=== PATIENT | male | born 1945 | race Caucasian/White ===

== ENCOUNTER 2017-07-28 14:30 | Outpatient (RCR) | payer MEDICARE, OTHER, SELFPAY ==
--- NOTE | 2017-07-01 18:00 | HP.OTEVAL ---
Patient's Visit Information EDGAR CERON is a 72 year old M, referred to Occupational Therapy by Out of Town Doctor,CESAR ZAMARRIPA, with a diagnosis of L wrist pain. Date of Evaluation: 07/01/17 Occupational Therapist: Darline Fung - Subjective Subjective: Pt., Guevara, arrived and noted that he has had on going issue with L wrist since high school. He noted he broke L dominant wrist in high school, had surgery around 49 years old, and recently has been told that to help decreased pain suregons can try burning nerve endings and if that doesn't work he noted they will try a fusion. He noted that he was referred to OT due to need to work on strengthening and ROM. He noted that he is L hand dominant. - Pain Left Wrist 0 Pain Intensity Range: 0, 9, 10 - Objective Concerns: Pt. poor informant if there is plate in wrist. Does not seem to show signs of plate, and nothing noted in x-ray but please further clarify as this is contraindication of some modalities that could potentially help decrease pain. Thank you! - ROM Wrist: Flexion R 0-70, L 0-44; Ext R 0-46, L 0-27 MP: Digits 2nd-5th R 5-75, 8-79, 9-80, 11-75; L 27-77, 22-78, 23-72, 23-78 ROM Comments: Radial Dev R 0-15, L 0-7. Ulnar Dev R 0-26, L 0-9 - Strength Grooming Salon Manager: R 99, L 19 Lateral Pinch: R 22, L 8 Tripod Pinch: R 13, L 2 Tip-to-Tip Pinch: R 10, L unable at this time Strength Comments: Increased pain with all movements. 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 Goal:: Guevara to increase L wrist flexion and extension by 5-10 degrees to increase ability to move and completed self-care and meaningful tasks within pain tolerance by time of d/c. Goal:: Guevara to rate pain at 1/10 consisntently during completion of self-care tasks with use of orthotic, compensations, and pain management strategies as needed 4/5 trials 80% of the time by d/c. Goal:: Guevara to be (I) to complete edema management techniques to decrease pain and swelling in L wrist to promote functional use 4/5 trials 80% of the time by d/c. Goal:: Guevara to be mod I to complete all ADl/IADls with use of compensations as needed 4/5 trials 80% of the time by d/c. - Rehabilitation General Assessment: Pt., Guevara, arrived for OT eval on this date. He noted that L wrist pain has been consistent over lifttime but has gotten significantly worse in last few years. He is unable to actively movement L affected wrist without pain at this time. Pain is minimal when placed in neutral position. Guevara exhibits significantly decreased ROM and strength in L dominant hand compared to R nonaffected hand. He reports having CTS release in B hands and trugger finger in L MF. Pain is most limiting factor at this time. His goal for therapy is to strengthening L hand prior to having next surgery of nervectomy and potentially fusion. Rehabilitation Potential: Good - Anticipated Interventions Anticipated Interventions: A/AAROM/PROM, Strengthening, Edema Control, Modalities, Orthoses, Joint Protection/Energy Conservation, Ergonomic Education, Fine Motor Coord/Jay, ADL Training, Caregiver Training, Home Program - Visit Plan Frequency: 2x /Week Duration: 4 Weeks TEXT: Thank you for the opportunity to evaluate your patient. For Medicare and Medicare HMO plans, please review the plan of care and approve it. It will need to be FAXED BACK to us at [phone] for Medicare purposes. Please let me know if there are questions or concerns regarding this plan of care. Physician Signature: Date:
--- NOTE | 2017-07-28 15:18 | HP.OTDCSUM ---
HP - OT D/C Summary It has been my pleasure to treat EDGAR CERON under orders from Out of Town Doctor, CESAR ZAMARRIPA for the diagnosis of L wrist pain for a total of 9 visit(s). Please see the following information for a summary of their discharge status. - Objective Objective/Function: Measurements on Wednesday are greater sumi measurements completed today. Wednesday measurements are as follows: manager metal: R 94 L 29; Lateral R 24 L 7. During re-eval today, Pt. noted increased pain in R wrist. He has progressed with strength from inital evaluation. Today's measurements are as follows: ROM L wrist: flex 0-57 degrees, ext. L 0-28 lbs. Strength measurements: manager metal R 93, L 24, lateral R 25, L 8; 3 jaw R 16, L 1; tip pinch R 10, L unable. - Goals Patient Goals: Regain Mobility, Regain Strength, Decrease Pain, Return to Work, Decrease Swelling/Stiffness, Improve Fine Motor Skills, Use Hand/Wrist/Arm Normally Again, Sleep Better, Decrease Tingling/Numbness, Increase ROM, Be More Independent in ADLS, Resume Former Household Responsibilities (Cooking,Cleaning,Yard, etc.), Resume Hobbies Goal:: Guevara to increase L manager metal strength by 20-30 lbs to promote increase ability to manipulate self-care items with L dominant hand 2/3 trials 75% of the time by d/c. Goal:: Guevara to increase L wrist flexion and extension by 5-10 degrees to increase ability to move and completed self-care and meaningful tasks within pain tolerance by time of d/c. Goal:: Guevara to rate pain at 1/10 consisntently during completion of self-care tasks with use of orthotic, compensations, and pain management strategies as needed 4/5 trials 80% of the time by d/c. Goal:: Guevara to be (I) to complete edema management techniques to decrease pain and swelling in L wrist to promote functional use 4/5 trials 80% of the time by d/c. Goal:: Guevara to be mod I to complete all ADl/IADls with use of compensations as needed 4/5 trials 80% of the time by d/c. - Plan Plan: He is to return to [facility] for further follow up. He is to continue HEP and use of wrist cock up splint when completing strengthenign tasks to decrease pain with HEP and he is to call with questions/concerns. Guevara verbalized understanding. - D/C Information If there are questions or concerns regarding this patient's occupational therapy, please fell free to call me at [phone]. Thank you for the referral of this patient. Sincerely, Darline Fung
== END 2017-07-28 19:00 | disposition home or self-care (01) ==
LOC: OT 14:30
PROVIDERS: Family Provider Family Medicine; PCP Family Medicine
DX: M25.532 Pain in left wrist (principal)
CPT/HCPCS: 97110; 97166; 97530; 97760; G8987; G8988

== ENCOUNTER 2021-07-24 05:41 | Day surgery (SDC) | payer MEDICARE, SELFPAY ==
[2021-07-24] VITALS (7 sets, daily range): BP systolic 97–132; BP diastolic 68–82; PULSE 53–69; RESP 16–18; TEMP 35.8–37.4; O2SAT 90–100; BMI 33.7
[2021-07-24] MEDS: Lactated Ringers 1,000 ML 15 ML IV (06:30)
--- NOTE | 2021-07-24 07:30 | RAD_ITS ---
STUDY: X-RAY - LEFT WRIST REASON FOR EXAM: Male, 76 years old. Intraoperative digital documentation views of proximal row carpectomy. TECHNIQUE: A single frontal digital documentation view(s) of the wrist were obtained. COMPARISON: None. FINDINGS: According to the paperwork, 4 images were acquired and one saved. Total exposure time 4 seconds. Longest single exposure time 1 second. Total DAP 0.3360 cGy/cm2. Total Air Kerma 0.200 mGy. RAD/Wrist 2 Views IMPRESSION: Intraoperative digital documentation of view as described. Electronically Signed: Luis E Bryant MD at 10:21 EST ,
[2021-07-24] MEDS: Cefazolin 2 GM in 0.9% Normal Saline 100 ML IV (07:50)
[2021-07-24] MEDS: Lidocaine 1% (30 ml sdv) 30 ML Vial (09:10)
[2021-07-24] MEDS: Bupivacaine Mpf 0.5% 30 ML VIAL (09:10)
--- NOTE | 2021-07-24 09:35 | PCM.DC ---
Discharge Instructions Follow Up Care Test Results: Test results from this visit will be discussed in further detail at your follow-up appointment, if applicable. Discharge Plan Admission Attending Provider: Paulie Hernandez Primary Care Provider: Gregory Morales Instructions Additional Instructions / Restrictions: Follow preprinted instructions from your surgeon's office. Discharge Orders/Prescriptions Prescriptions: New oxycodone 5 mg tablet 5 mg PO Q6H PRN (Reason: pain) 7 Days Qty: 28 RF: 0 No Action atorvastatin 40 mg Tablet 20 mg PO QHS RF: 0 ketoconazole 2 % Shampoo 1 applic TOPICAL Q14D RF: 0 amlodipine 5 mg Tablet 5 mg PO BID RF: 0 triamcinolone acetonide 0.1 % Cream 1 applic TOPICAL BID RF: 0 pantoprazole 40 mg Tablet,Delayed Release (Dr/Ec) 40 mg PO DAILY RF: 0 ferrous sulfate 325 mg (65 mg iron) Tablet 325 mg PO TID RF: 0 metoprolol tartrate 50 mg Tablet 50 mg PO BID RF: 0 nitroglycerin 0.4 mg Tablet, Sublingual 0.4 mg SUBLINGUAL Q5M PRN (Reason: Chest Pain) RF: 0 lisinopril 30 mg Tablet 15 mg PO DAILY RF: 0 ketoconazole 2 % Cream 1 applic TOPICAL BID RF: 0 sertraline 50 mg Tablet 50 mg PO DAILY RF: 0 levothyroxine 112 mcg Tablet 112 mcg PO DAILY RF: 0 carboxymethylcellulose sodium 0.5 % Dropperette 1 drp EACH EYE TID RF: 0 Fish Oil 1,000 mg Capsule 3,000 cap PO TID RF: 0 ranolazine 1,000 mg Tablet Extended Release 12 Hr 1,000 mg PO BID RF: 0 cholecalciferol (vitamin D3) [Vitamin D3] 50 mcg (2,000 unit) Capsule 50 mcg PO DAILY RF: 0 ticagrelor 90 mg Tablet 90 mg PO BID RF: 0 pyridoxine (vitamin B6) 50 mg Capsule 50 mg PO DAILY RF: 0 cyanocobalamin (vitamin B-12) 1,000 mcg Capsule 1,000 mcg PO DAILY RF: 0 acetaminophen 500 mg Tablet 500 mg PO Q6H PRN (Reason: Pain) RF: 0 ascorbic acid (vitamin C) [Vitamin C] 250 mg Tablet,Chewable 250 mg PO DAILY RF: 0 aspirin [Aspir-81] 81 mg Tablet,Delayed Release (Dr/Ec) 81 mg PO DAILY RF: 0 Referrals / Follow Up: Gregory Morales MD [Primary Care Provider] - Paulie Hernandez DO [STAFF PHYSICIAN] - Within 2 Weeks Disposition Disposition (needs filled in before D/C Order can be placed): Home, Self Care
--- NOTE | 2021-07-24 09:40 | OP.PCM_ITS ---
Report of Operation Description of Surgical Findings:: Preoperative diagnosis: 1. Recurrent left carpal tunnel syndrome 2. Left wrist osteoarthritis Postoperative diagnosis: 1. Recurrent left carpal tunnel syndrome 2. Left wrist osteoarthritis Procedure: 1. Revision left carpal tunnel syndrome 2. Left wrist proximal row carpectomy Surgeon: Paulie Hernandez DO Anesthesia: MAC with axillary block Anesthesiologist: Dr. 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 He has had multiple cortisone injections into the left wrist over the years without significant relief. Severe carpal tunnel syndrome was demonstrated on the nerve study. I recommended revision left carpal tunnel release. He did well with a right-sided revision carpal tunnel release under local only wide-awake no tourniquet surgery. However, given his advanced osteoarthritis of the wrist, he requested a additional proc edure performed at the same time as he was coming off of his Brilinta for a week. We discussed salvage procedure of of the wrist including 4 corner fusion, proximal row carpectomy, and wrist denervation. Patient was not interested in a wrist denervation. I recommended a proximal row carpectomy given the pattern arthritis and maintained cartilage surface of the capitate. The risks, benefits, alternatives to these procedures were reviewed with the patient at length and he agreed to proceed. Risks included but were not limited to bleeding, infection, loss of life or limb, need for additional surgery, risk of anesthesia, risk of discontinuation of his blood thinners, neurovascular injury, DVT or PE, persistent pain, instability of the wrist. He has expressed understanding of these risks and wished to proceed with surgery. Description of procedure: Patient was identified in the preoperative holding area by name, medical record number, and date of . The operative extremity was marked. All questions were answered to patient satisfaction. Informed consent confirmed. An axillary block was administered in the preoperative holding area by the anesthesia staff. At time of his procedure, patient brought to the operative suite and positioned supine a standard operating table. A hand table was attached to the operative side. All bony prominences were well-padded. Sedation was administered. We then applied a well-padded pneumatic tourniquet to the left forearm. We prepped and draped the left hand and wrist in a normal, sterile orthopedic fashion. We then performed a timeout with all parties in attendance in agreement with the side, site, operation be performed. No concerns were voiced and would like to proceed with surgery. 2 g Ancef was administered prior to the incision by the anesthesia staff. I first exsanguinated the left hand and wrist with an Esmarch bandage. Tourniquet was inflated to 250 mmHg where remained up for approximately 45 minutes. Esmarch was removed. I first turned my attention dorsally. Anesthesia of the skin was confirmed with forceps. I planned a standard longitudinal approach to the wrist dorsally overlying Isaiah's tubercle approximately 10 cm in length. Full-thickness flaps were developed with 15 blade scalpel. The extensor retinaculum was then split overlying the third dorsal compartment in line with the Isaiah's tubercle. The extensor pollicis longus tendon was then identified and its sheath opened. I transposed the EPL radially. I then subperiosteally elevated the fourth and second dorsal compartments ulnarly and radially respectively. I then encountered the dorsal wrist capsule. I left a small cuff of capsule to for later repair and then I elevated a U-shaped flap distally based to expose the proximal row. I hyperflexed the wrist. This exposed the proximal row well. I split the scapholunate and lunotriquetral ligaments with a 15 blade scalpel. I utilized a McGlamry elevator to strip capsular attachments from the proximal row. I then sequentially removed the triquetrum, lunate, and the scaphoid. There is some fragmentation of the scaphoid which was entirely removed especially along the palmar capsule. I then thoroughly lavaged the wrist with normal saline solution. A mini C arm was brought in to confirm adequate carpectomy. I then closed the capsule in a watertight fashion with [id number] interrupted #0 Ethibond suture. I then turned my attention volarly for the revision carpal tunnel. Anesthesia was lackluster of the skin, so I performed a field block with 15 cc total of 0.5% plain Marcaine: 1% lidocaine plain with 50: 50 mix. I planned a longitudinal incision in the palm with a burner extension proximal to the distal wrist crease in line with the pisiform. Full-thickness flaps were developed with skin and subcutaneous tissue with a 15 blade scalpel. The ulnar nerve and vessels were identified. I decompressed the ulnar nerve along the antebrachial fascia and tracked it to the pisiform. I then identified the transverse carpal ligament insertion on the pisiform. This was sharply dissected with a 15 blade scalpel. Underlying flexor tendons and median nerve were identified in the carpal tunnel. Complete release of the transverse carpal ligament was completed with Littler scissors. Antebrachial fascia was released off the median nerve. There was thickened tenosynovium within the carpal tunnel which was debrided off the flexor tendons. I then exposed distally confirming adequate release, with exposure of the perivascular fat. The recurrent motor branch was identified and appeared to be without aberrancies. I then thoroughly irrigated the carpal tunnel wound. Tourniquet was deflated. Hemostasis was excellent. I closed the palmar incision with interrupted horizontal mattress 4-0 nylon suture. I then turned my attention dorsally, reapproximated the retinaculum with 3-0 Vicryl suture. I then closed the skin with interrupted horizontal mattress 4-0 nylon suture. Sterile compression dressing was applied with Xeroform, 4 x 4's, web roll. A well-padded volar-based fiberglass splint was then applied. Patient tolerated procedure well without complication. Post Operative Plan: Weightbearing: Nonweightbearing operative extremity Antibiotics: 2 g Ancef x 1 dose preoperatively DVT Prophylaxis: Restart home Brilinta 07/25/2021 Rahman: None Dressing: Maintain splint, keep it clean dry and intact until follow-up X-Rays: 2 weeks postop in the office Pain Medication: Oxycodone Rx upon discharge Follow-up: 2 weeks post-operatively with me in the office
[2021-07-24 11:00] LABS: Bedside Glucose 146 mg/dL (70-110)
--- NOTE | 2021-07-24 11:20 | EKG12_ITS ---
Test Reason : DIAPHORETIC Blood Pressure : / mmHG Vent. 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
[2021-07-24] MEDS: Nitroglycerin (INPATIENT USE) 0.4 MG TAB.SUBL SL (11:37)
--- NOTE | 2021-07-24 11:57 | SUR.PHASEII ---
Addendum entered by Allison Kurtz RN 07/24/21 13:14: Patient cleared for discharge per anesthesia, patient and family are in agreement. Addendum entered by Allison Kurtz RN 07/24/21 12:00: denies chest pain Original Note: Patient presents with diaphoresis post- op. Concern d/t heart history. BGL taken, WBL. Troponin drawn stat, pending. EKG; Sinus robert and new change noted per anesthesia. Nitro SL ordered per anesthesia, given. Oxygen administered at 2L NC. VSS. Will cont to monitor. Patient and SO agree.
[2021-07-24 12:02] LABS: Troponin-I HS 6 pg/mL (3.0-78.0)
== END 2021-07-24 23:59 | disposition home or self-care (01) ==
LOC: SDC 05:47 → AC 05:50
PROVIDERS: Anesthesiology; PCP Family Medicine; Referring Provider Student in an Organized Health Care Education/Training Program; Visit Provider Student in an Organized Health Care Education/Training Program
PROC: (CPT 64721; principal; 2021-07-24 07:15)
DX: G56.02 Carpal tunnel syndrome, left upper limb (principal); J44.9 Chronic obstructive pulmonary disease, unspecified; E11.9 Type 2 diabetes mellitus without complications; M19.032 Primary osteoarthritis, left wrist; I25.10 Atherosclerotic heart disease of native coronary artery without angina pectoris; I25.2 Old myocardial infarction; E03.9 Hypothyroidism, unspecified; G47.30 Sleep apnea, unspecified; E78.00 Pure hypercholesterolemia, unspecified; E66.8 Other obesity; Z68.34 Body mass index [BMI] 34.0-34.9, adult; Z87.891 Personal history of nicotine dependence; K21.9 Gastro-esophageal reflux disease without esophagitis; Z95.1 Presence of aortocoronary bypass graft; Z79.82 Long term (current) use of aspirin; Z86.711 Personal history of pulmonary embolism; Z79.899 Other long term (current) drug therapy; Z86.718 Personal history of other venous thrombosis and embolism; R94.31 Abnormal electrocardiogram [ECG] [EKG]; R00.1 Bradycardia, unspecified
CPT/HCPCS: 25215; 64721; 64417; 36415; 73100; 76000; 82962; 84484; 93005; J7120

== ENCOUNTER 2024-02-11 09:41 | Inpatient (IN) | payer MEDICARE, SELFPAY ==
[2024-02-11] VITALS (14 sets, daily range): BP systolic 99–144; BP diastolic 50–84; PULSE 84–110; RESP 13–18; TEMP 36.5–37.3; O2SAT 93–96; BMI 33.0
--- NOTE | 2024-02-11 10:11 | EX.ED.DYSGE1 ---
HPI History of Present Illness Chief Complaint: General Illness Detail of Chief Complaint: Respiratory symptoms x 3 days and exertional and without past 24 hours Informant: patient and family Onset/Context/Timing Onset: Yesterday (With respect to the chest pain) and Days (3 days with respect to the cough, dyspnea and fever) Context: Sudden Onset Timing: Continuous Quality: Cough, fever with Tmax of 101.5, dyspnea, dyspnea on exertion chest pressur Location: Respiratory and cardiac Current Severity: Mild Maximum Severity: Moderate Worsened by: Chest pain with exertion and respiratory symptoms Relieved by: 2 to 3 minutes after nitro and nothing Associated Symptoms Associated Symptoms: Chest pain is associated with dyspnea, diaphoresis and lightheadedness Narrative Narrative: Patient is 78-year-old male. He presents with both infectious respiratory symptoms and symptoms concerning for exertional angina he states he only had shortness of breath with his previous PA. He has a history of hypertension, hypercholesterolemia, hypothyroidism and coronary disease. He has a total of 5 stents. His apparently is in the [facility]. He has visited her and there have been ill residents that he has been here. No known history of COVID. He does endorse rhinorrhea, congestion postnasal drainage and sore throat. The cough is nonproductive. He states he cannot walk across the room. If he exerts himself he gets a heartburn discomfort left side of his chest with diaphoresis dyspnea. He states he goes to the ground quickly because he feels lightheaded and takes a nitro. 2 to 3 months after taking the nitro his pain is alleviated He has taken 3 nitro on the 24 hours. Since onset of illness he is taken a total of 5 nitro. Prior to nitro this past couple of days he took 1 a week and a half ago. He does have a history of reflux. This does not feel like his reflux pain. Denies black or maroon-colored stool. He denies orthopnea, PND, pedal edema or symptoms of claudication. Prior similar symptoms: Yes (The chest pain is similar to the discomfort he had with his PA) Recent Illness/Hospitalization: No PFSH PFS Medical History Wears hearing aid Wears glasses Wears dentures Cancer History of posttraumatic stress disorder (PTSD) Thyroid disease Diabetes Arthritis Low iron DVT (deep venous thrombosis) Restless legs Injury of back Blackout History of ulceration Gastric reflux Former smoker On home oxygen therapy COPD (chronic obstructive pulmonary disease) Shortness of breath on exertion Leg cramps History of edema History of echocardiogram History of stress test Cardiology follow-up encounter Hypertension History of heart attack Chest pain Hx of fracture of wrist Hx of reduction of nasal fracture Home Medications ?Medication ?Instructions ?Recorded ?Last Taken ?Type amlodipine 5 mg tablet 5 mg PO BID 07/16/21 07/23/21 History aspirin 81 mg tablet,delayed 81 mg PO DAILY 07/16/21 07/23/21 History release atorvastatin 40 mg tablet 20 mg PO QHS 07/16/21 07/23/21 History carboxymethylcellulose sodium 0.5 1 drp EACH EYE TID 07/16/21 07/23/21 History % eye drops in a dropperette cholecalciferol (vitamin D3) 50 50 mcg PO DAILY 07/16/21 07/23/21 History mcg (2,000 unit) capsule (Vitamin D3) cyanocobalamin (vitamin B-12) 1,000 mcg PO DAILY 07/16/21 07/23/21 History 1,000 mcg capsule ferrous sulfate 325 mg (65 mg 325 mg PO TID 07/16/21 07/23/21 History iron) tablet ketoconazole 2 % shampoo 1 applic topical Q14D 07/16/21 07/23/21 History ketoconazole 2 % topical cream 1 applic topical BID 07/16/21 07/23/21 History levothyroxine 112 mcg tablet 112 mcg PO DAILY 07/16/21 07/23/21 History lisinopril 30 mg tablet 15 mg PO DAILY 07/16/21 07/23/21 History metoprolol tartrate 50 mg tablet 50 mg PO BID 07/16/21 07/23/21 History nitroglycerin 0.4 mg sublingual 0.4 mg sublingual Q5M PRN Chest 07/16/21 07/23/21 History tablet Pain pantoprazole 40 mg tablet,delayed 40 mg PO DAILY 07/16/21 07/23/21 History release pyridoxine (vitamin B6) 50 mg 50 mg PO DAILY 07/16/21 07/23/21 History capsule ranolazine 1,000 mg 1,000 mg PO BID 07/16/21 07/23/21 History tablet,extended release,12 hr sertraline 50 mg tablet 50 mg PO DAILY 07/16/21 07/23/21 History ticagrelor 90 mg tablet 90 mg PO BID 07/16/21 07/23/21 History triamcinolone acetonide 0.1 % 1 applic topical BID 07/16/21 07/23/21 History topical cream alirocumab 150 mg/mL subcutaneous 150 mg subcut .COMPLEX 02/11/24 Unknown History pen injector gabapentin 100 mg capsule 200 mg PO QHS 02/11/24 02/10/24 History tacrolimus 0.1 % topical ointment 1 applic topical BID 02/11/24 02/10/24 History (Protopic) Allergy/AdvReac Type Severity Reaction Status Date / Time adhesive tape (plastic tape) Allergy Rash Verified 02/11/24 09:42 bacitracin (From Neosporin Allergy Rash Verified 02/11/24 09:42 ([id number])) dipyridamole (From Allergy Rash Verified 02/11/24 09:42 Persantine) neomycin (From Neosporin Allergy Rash Verified 02/11/24 09:42 ([id number])) polymyxin B (From Neosporin Allergy Rash Verified 02/11/24 09:42 ([id number])) trifluoperazine (From AdvReac PT UNSURE Verified 02/11/24 09:42 Stelazine) OF REACTION Surgical History History of cardiac catheterization History of esophagogastroduodenoscopy (EGD) Hx of colonoscopy Hx of angioplasty History of heart artery stent Hx of heart bypass surgery Hx of elbow surgery Hx of repair of right rotator cuff Hx of repair of left rotator cuff Social History (Updated 02/11/24 @ 10:[address] Nazario Garcia MD) household members: spouse Smoking Status: Former smoker ROS ROS ED Constitutional Constitutional ED: Reports fever(s) and sweats; Denies chills, subjective or weight loss Eyes Eyes: Denies blurry vision or change in vision ENT ENT ED: Reports rhinorrhea and sore throat; Denies ear pain Cardiovascular Cardiovascular: Reports chest pain; Denies orthopnea, palpitations, paroxysmal nocturnal dyspnea or racing heartbeat Respiratory/Chest Respiratory/Chest: Reports cough, dyspnea and dyspnea on exertion; Denies orthopnea, paroxysmal nocturnal dyspnea or sputum Gastrointestinal Gastrointestinal: Denies abdominal pain, diarrhea, nausea or vomiting Genitourinary Genitourinary ED: Denies dysuria, hematuria or urinary frequency Musculoskeletal Musculoskeletal: Reports myalgias; Denies arthralgias, back pain or neck pain Integumentary Denies abscess or rash Neurologic Neurologic: Reports weakness; Denies headache(s) or paresthesias Psychiatric Psychiatric: Denies anxiety or depression Endocrine Endocrinology: Denies cold intolerance or heat intolerance Hematologic/Lymphatic Hematologic/Lymphatic: Reports systems reviewed and no addt'l complaints, except as documented EXAM Physical Exam Const Vital Signs: 02/11/24 09:42 02/11/24 09:48 02/11/24 09:50 Temperature 98.9 F 99.1 F Temperature Source Temporal Oral Pulse Rate 110 H 101 H Respiratory Rate 18 13 Respiratory Effort Normal Non-Labored Short of Breath Respiratory Pattern Normal Blood Pressure 109/84 H 99/75 Blood Pressure Mean 92 83 Pulse Ox 96 96 Oxygen Delivery Method Room Air Room Air Positive well nourished and well developed Constitutional Narrative: Patient appears ill He is tachypneic. He is breathing quicker than the 18 and 13 respirations per minute that is documented. He is breathing 26 times a minute He is also tachycardic General Appearance ED: well developed and pallor; Negative for cyanotic, diaphoretic or NAD HEENT Reports moist mucous membranes HEENT Narrative: There is no evidence of angioedema. Negative for trauma or tenderness Eyes PERRL and EOMs intact bilaterally Eyes Narrative: Conjunctival are injected. General Eye ED: Negative for pale conjunctiva or scleral icterus Neck no lymphadenopathy, supple and no JVD Neck Narrative: Trachea is midline. There is no stridor. Resp normal respiratory effort and No clear to auscultation bilaterally Resp Narrative: Patient has expiratory wheezing with forced expiration. Question of rales at the right base. There is no egophony. Cardio regular rhythm, S1 normal heart sound, S2 normal heart sound and no murmurs Rate: tachycardic GI normal to inspection, nondistended, normoactive bowel sounds, non-tender, non-distended and no masses; Negative for hepatosplenomegaly Back/Spine no CVA tenderness Extremity normal to inspection Extremity Narrative: There is no asymmetry, swelling, discoloration, leg vein distention, palpable cords or tenderness on the distribution deep venous system. General Extremety ED: Negative for edema or tenderness General Extremity: Negative for edema Neuro oriented x3 and CN's II-XII intact bilaterally Neuro Narrative: Patient is awake but not alert. Sensorium / Orientation: Negative for alert Psych mental status grossly normal Skin no rashes or lesions noted, no wounds and skin turgor normal General Skin Exam: pallor; Negative for elasticity normal or jaundice MDM MDM MDM Narrative Medical decision making narrative: In my opinion patient has 2 processes going on 1 is the respiratory symptoms that started 3 days ago and 2 is the exertional angina that is alleviated by nitroglycerin. To evaluate the respiratory symptoms chest x-ray was obtained as well as CBC, competence of metabolic panel lactate to assess white count and evidence of endorgan dysfunction. To assess the chest pain EKG was obtained, troponin. Of note patient is on aspirin as taken aspirin last 24 hours. Patient's heart score is 6 without troponin level. Lab Data Attestation: I reviewed the patient's lab results. Lab results narrative: CBC reveals upper end of normal white count with a slight shift. There is no bandemia. Creatinine is elevated. There is no recent creatinine for comparison. Glucose is elevated 142 within normal CO2 and anion gap. Rapid antigen for COVID, influenza and RSV is positive for COVID. Labs: Laboratory Results - last 24 hr 02/11/24 09:55 WBC 11.0 RBC 4.24 L Hgb 13.7 Hct 40.5 MCV 95.5 H MCH 32.3 H MCHC 33.8 RDW Std Deviation 46.5 H RDW Coeff of Sarah 13.1 Plt Count 111 L MPV 11.3 Immature Gran % (Auto) 0.600 Neut % (Auto) 70.7 H Lymph % (Auto) 13.1 L [place] % (Auto) 14.6 H Eos % (Auto) 0.6 Baso % (Auto) 0.4 Absolute Neuts (auto) 7.8 H Absolute Lymphs (auto) 1.44 Nucleated RBC % 0 Differential Comment COMMENT Diff Path Review May foll Atypical Lymphocytes 1+ Plt Morphology Comment LARGE Anisocytosis 1+ Sodium 137 Potassium 3.7 Chloride 104 Carbon Dioxide 24.0 Anion Gap 9 BUN 19 H Creatinine 1.43 H Estim Creat Clear Calc 47.80 Est GFR (MDRD) Af Amer 61 Est GFR (MDRD) Non-Af 51 L BUN/Creatinine Ratio 13.3 Glucose 142 H Lactic Acid 1.9 Calcium 8.8 Total Bilirubin 0.60 AST 27 ALT 32 Alkaline Phosphatase 49 Troponin I High Sens 454 H* Total Protein 7.7 Albumin 3.4 Globulin 4.3 H Albumin/Globulin Ratio 0.8 L Radiography Chest X-Ray - ED: 2 View (2 view chest x-ray reveals no acute abnormality. There is minimal chronic pulmonary changes. Cardiac silhouette and size normal. Cerclage wires noted. Mediastinum is normal. Cardiac silhouette size normal. Osseous structures are unremarkable. This has been reviewed interpreted by me at 1037.) Diagnostic Testing: Clinical Impression(s) from Imaging Studies Chest X-Ray 02/11/24 10:26 IMPRESSION: Hyperinflation. The lungs are clear. Electronically Signed: Felton Carrero MD at 10:40 EDT , Rhythm Strip Rhythm Strip: Sinus Tach Rate: 112 Ectopy: None EKG Initial EKG: Attestation: I personally reviewed and interpreted this EKG as follows: Interpretation: Sinus Tachycardia (Rate is 101. IA interval is 186 ms. Cures duration 104 ms. QT duration 126 ms. Geff is normal. Patient has nonspecific ST-T wave changes. There is decreased anterior force. Will need to obtain old EKG for comparison.) Management Discussion w/another healthcare provider: Ethylene Plant Helper (Spoke with Dr. Paniagua regarding patient. He would like patient anticoagulate with heparin. He also asked if patient has COVID. I informed him test is pending. Patient be admitted to hospitalist with consult to cardiology. Patient was not treated with nitro because of low blood pressure.) Critical Care Time Critical Care Time: Yes Critical care time (excluding procedures): 30-74 minutes (32), Including time spent: (History, physical, documentation, review of prior records, discussion with daughter, independent rotation of laboratory results), Discussing w/Patient &/or Family/Supply Chain Development Manager (Daughter informed me that there is an abnormality involving the artery in the back of the heart question circumflex.), Discussing w/Consultants (Hospitalist and cardiology) and Arranging Admission or Transfer Discharge Plan Dx/Rx/DC Orders Clinical Impression: Non-ST elevated myocardial infarction, Hypotension, History of hypertension, Hx of hypercholesterolemia, History of hypothyroidism, Sinus tachycardia, Elevated serum creatinine, Nondiabetic hyperglycemia, COVID-19 virus infection Disposition Disposition: Acute Care Hospital [facility]
[2024-02-11] MEDS: 0.9% Normal Saline (1000mL) 1,000 ML 150 ML IV (10:21)
--- NOTE | 2024-02-11 10:26 | RAD_ITS ---
STUDY: X-RAY CHEST REASON FOR EXAM: Male, 78 years old. Cough, fever, dyspnea, expiratory wheezing TECHNIQUE: PA and lateral views of the chest. COMPARISON: Comparison is made with prior study May 04, 2011. FINDINGS: EKG electrodes are seen. Hyperinflation. The lungs are clear. There is no demonstrated pleural abnormality. Sternal cerclage wires and vascular clips are present from a prior sternotomy and coronary artery bypass graft procedure (CABG). Normal mediastinum and fabricio. Normal visualized pulmonary arteries. There is atherosclerotic calcification of the aortic arch with tortuosity. There are degenerative changes of the visualized thoracic spine. Normal visualized ribs, clavicles, and shoulders. There is no demonstrated abnormality of the visualized soft tissue structures of the upper abdomen. RAD/Chest PA and Lateral IMPRESSION: Hyperinflation. The lungs are clear. Electronically Signed: Felton Carrero MD at 10:40 EDT ,
[2024-02-11 10:32] LABS: Absolute Lymphocyte Count 1.44 X10^3/uL (0.83-4.51); Absolute Neutrophil Count 7.8 X10^3/uL (2.0-7.7); Basophil# 0.04 X10^3/uL; Basophil% 0.4 % (0-1); Eosinophil# 0.07 X10^3/uL; Eosinophils% 0.6 % (0-5); Hematocrit 40.5 % (40-54); Hemoglobin 13.7 g/dL (13.0-16.5); Lymphocyte # 1.44 X10^3/ul (0.83-4.51); Lymphocyte % 13.1 % (19-41); Mean Corp Hgb Conc 33.8 g/dL (32-36); Mean Corpuscular Hgb 32.3 pg (27.0-32.0); Mean Corpuscular Volume 95.5 fL (80-94); Mean Platelet Vol. 11.3 fl (6.2-12.0); Monocyte# 1.61 X10^3/uL; Monocyte% 14.6 % (0-10); NRBC Flagged by Analyzer 0 % (0-5); Neutrophil # 7.77 X10^3/uL (2.7-7.7); Neutrophil % 70.7 % (47-70); POSITIVE DIFFERENTIAL YES; Platelet Count 111 K/mm3 (150-450); RBC Distribution Width CV 13.1 % (11.6-14.6); RBC Distribution Width SD 46.5 fl (35.1-43.9); Red Blood Count 4.24 M/mm3 (4.6-6.2)
[2024-02-11 10:33] LABS: Differential Indicated SCAN CRITERIA MET
[2024-02-11] MEDS: guaiFENesin Dm 10 ML UDC 5 ML PO (10:36)
[2024-02-11 10:43] LABS: ALB/GLOB Ratio 0.8 RATIO (0.9-2.4); AST(SGOT) 27 U/L (15-37); Alanine Aminotransfer ALT/SGPT 32 U/L (16-61); Albumin, Serum 3.4 g/dL (3.2-5.0); Alkaline Phosphatase 49 U/L (45-117); Anion Gap 9 (5-15); BUN 19 mg/dL (7-18); BUN/Creat Ratio 13.3 RATIO (10-20); Calcium,Total 8.8 mg/dL (8.5-10.1); Chloride 104 mmol/L (98-107); Creatinine, Serum 1.43 mg/dL (0.70-1.30); EST Glomerular Filtration Rate 51 mL/min (>60); Est Glom Filt Rate - Afr Amer 61 mL/min (>60); Globulin 4.3 g/dL (2.2-4.2); Glucose 142 mg/dL (74-106); Potassium 3.7 mmol/L (3.5-5.1); Protein, Total 7.7 g/dL (6.4-8.2); Sodium Level 137 mmol/L (136-145); Troponin-I HS (w/2H Reflex) 454 pg/mL (3.0-78.0)
--- NOTE | 2024-02-11 10:50 | NURSING ---
Hospitalist paged for Dr Garcia
[2024-02-11 10:51] LABS: Lactic Acid 1.9 mmol/L (0.4-1.9)
--- NOTE | 2024-02-11 10:58 | PCM.HP.STD ---
HPI - General General Date of Admission: 02/11/24 Date of Service: 02/11/24 Chief Complaint: chest pain HPI Narrative EDGAR CERON, is a 78 M with a PMH as outlined who presents via the ED on 02/11/2024 with a complaint of shortness of breath which had been going on for about 2-3 days prior to admission. He has an extensive history of CAD s/p CABG and stents x 3. He said his last stent was in 2019 at [facility]. He said he advised that his was in the [facility] and that had been ill residents quite fair. He had assisted rhinorrhea, congestion and postnasal drainage as well as sore throat. He said he had taken nitro at home and it helped with left sided chest pain which had also developed. He denied any lightheadedness, nausea vomiting or any other symptoms. Review of symptoms otherwise negative. Vitals in the ED were temperature of 98.7 Fahrenheit, pulse rate of 95, blood pressure of 143/75, respirate rate of 18 and pulse ox of 95% on room air. CBC showed hemoglobin of 13.7, WBC of 11 and platelets of 111. Chemistry showed creatinine of 1.43, sodium of 137 and potassium of 3.7 with initial troponin of 454. Subsequent troponin trended up to 770. Chest x-ray showed no acute cardiopulmonary process and EKG showed no acute ST changes. COVID test and was positive. He has been admitted to be managed for non-STEMI as well as COVID-19 infection. [facility] Medical History Wears hearing aid Wears glasses Wears dentures Cancer History of posttraumatic stress disorder (PTSD) Thyroid disease Diabetes Arthritis Low iron DVT (deep venous thrombosis) Restless legs Injury of back Blackout History of ulceration Gastric reflux Former smoker On home oxygen therapy COPD (chronic obstructive pulmonary disease) Shortness of breath on exertion Leg cramps History of edema History of echocardiogram History of stress test Cardiology follow-up encounter Hypertension History of heart attack Chest pain Hx of fracture of wrist Hx of reduction of nasal fracture Home Medications ?Medication ?Instructions ?Recorded ?Last Taken ?Type amlodipine 5 mg tablet 5 mg PO BID 07/16/21 02/10/24 History aspirin 81 mg tablet,delayed 81 mg PO DAILY 07/16/21 02/10/24 History release atorvastatin 40 mg tablet 20 mg PO QHS 07/16/21 02/10/24 History carboxymethylcellulose sodium 0.5 1 drp EACH EYE TID 07/16/21 02/10/24 History % eye drops in a dropperette cholecalciferol (vitamin D3) 50 50 mcg PO DAILY 07/16/21 02/10/24 History mcg (2,000 unit) capsule (Vitamin D3) cyanocobalamin (vitamin B-12) 1,000 mcg PO DAILY 07/16/21 02/10/24 History 1,000 mcg capsule ferrous sulfate 325 mg (65 mg 325 mg PO TID 07/16/21 02/10/24 History iron) tablet ketoconazole 2 % shampoo 1 applic topical Q14D 07/16/21 02/10/24 History ketoconazole 2 % topical cream 1 applic topical BID 07/16/21 02/10/24 History levothyroxine 112 mcg tablet 112 mcg PO DAILY 07/16/21 02/10/24 History lisinopril 30 mg tablet 30 mg PO DAILY 07/16/21 02/10/24 History metoprolol tartrate 50 mg tablet 50 mg PO BID 07/16/21 02/10/24 History nitroglycerin 0.4 mg sublingual 0.4 mg sublingual Q5M PRN Chest 07/16/21 02/11/24 History tablet Pain pantoprazole 40 mg tablet,delayed 40 mg PO DAILY 07/16/21 02/10/24 History release pyridoxine (vitamin B6) 50 mg 50 mg PO DAILY 07/16/21 02/10/24 History capsule ranolazine 1,000 mg 1,000 mg PO BID 07/16/21 02/10/24 History tablet,extended release,12 hr sertraline 50 mg tablet 50 mg PO DAILY 07/16/21 02/10/24 History ticagrelor 90 mg tablet 90 mg PO BID 07/16/21 02/10/24 History triamcinolone acetonide 0.1 % 1 applic topical BID 07/16/21 02/10/24 History topical cream alirocumab 150 mg/mL subcutaneous 150 mg subcut .COMPLEX 02/11/24 Unknown History pen injector gabapentin 100 mg capsule 200 mg PO QHS 02/11/24 02/10/24 History tacrolimus 0.1 % topical ointment 1 applic topical BID 02/11/24 02/10/24 History (Protopic) Allergy/AdvReac Type Severity Reaction Status Date / Time adhesive tape (plastic tape) Allergy Rash Verified 02/11/24 09:42 bacitracin (From Neosporin Allergy Rash Verified 02/11/24 09:42 ([id number])) dipyridamole (From Allergy Rash Verified 02/11/24 09:42 Persantine) neomycin (From Neosporin Allergy Rash Verified 02/11/24 09:42 ([id number])) polymyxin B (From Neosporin Allergy Rash Verified 02/11/24 09:42 ([id number])) trifluoperazine (From AdvReac PT UNSURE Verified 02/11/24 09:42 Stelazine) OF REACTION Surgical History History of cardiac catheterization History of esophagogastroduodenoscopy (EGD) Hx of colonoscopy Hx of angioplasty History of heart artery stent Hx of heart bypass surgery Hx of elbow surgery Hx of repair of right rotator cuff Hx of repair of left rotator cuff Social History (Updated 02/11/24 @ 10:[address] Nazario Garcia MD) household members: spouse Smoking Status: Former smoker ROS Constitutional Constitutional: Reports fatigue and malaise; Denies anorexia, chills, fever(s) or weakness Eyes Eyes: Denies change in vision ENT HEENT: Reports nasal congestion and nasal discharge; Denies dysphagia, headache(s), sinus pressure or sore throat Cardiovascular Cardiovascular: Reports chest pain and dyspnea on exertion; Denies edema, lightheadedness, orthopnea, palpitations, paroxysmal nocturnal dyspnea, rapid heart rate or syncope Respiratory/Chest Respiratory/Chest: Reports cough, dyspnea, shortness of breath at rest and shortness of breath with exertion; Denies productive cough or wheezing Gastrointestinal Gastrointestinal: Denies abdominal pain, constipation, diarrhea, nausea or vomiting Genitourinary Genitourinary: Denies dysuria Musculoskeletal Musculoskeletal: Denies arthralgias or back pain Neurologic Neurologic: Denies confusion, disequilibrium, dizziness, focal weakness, headache(s) or numbness Psychiatric Psychiatric: Denies anxiety or depression Endocrine Endocrinology: Denies change in body appearance Vital Signs Vital Signs Vital Signs: 02/11/24 09:42 02/11/24 09:48 02/11/24 09:50 Temperature 98.9 F 99.1 F Temperature Source Temporal Oral Pulse Rate 110 H 101 H Respiratory Rate 18 13 Respiratory Effort Normal Non-Labored Short of Breath Respiratory Pattern Normal Blood Pressure 109/84 H 99/75 Blood Pressure Mean 92 83 Pulse Ox 96 96 Oxygen Delivery Method Room Air Room Air Weight Weight: 218 lb 7.649 oz Body Mass Index (BMI) 33.0 Physical Exam Const alert, oriented x3, no apparent distress and average body habitus General Appearance: cooperative HEENT normocephalic, head/scalp atraumatic, moist oral mucous membranes and oropharynx normal Mouth: oral and palatal mucosa normal Eyes PERRL and EOMs intact bilaterally Neck no lymphadenopathy and supple Resp Resp Narrative: mildly diminished breath sounds bibasally, no wheezes or crackles. On room air. Cardio regular rate, regular rhythm, S1 normal heart sound, S2 normal heart sound and no murmurs GI normal to inspection, nondistended, normoactive bowel sounds, soft to palpation, non-tender and non-distended Extremity normal to inspection, full ROM and no clubbing, cyanosis or edema Neuro oriented x3, CN's II-XII intact bilaterally, moves all extremities and no focal motor deficits Sensorium / Orientation: awake and alert Motor Exam: strength 5/5 throughout Psych affect normal Results Lab / Micro Data 02/11/24 09:55 02/11/24 09:55 Labs: Laboratory Results - last 24 hr 02/11/24 09:55: WBC 11.0, RBC 4.24 L, Hgb 13.7, Hct 40.5, MCV 95.5 H, MCH 32.3 H, MCHC 33.8, RDW Std Deviation 46.5 H, RDW Coeff of Sarah 13.1, Plt Count 111 L, MPV 11.3, Immature Gran % (Auto) 0.600, Neut % (Auto) 70.7 H, Lymph % (Auto) 13.1 L, [place] % (Auto) 14.6 H, Eos % (Auto) 0.6, Baso % (Auto) 0.4, Absolute Neuts (auto) 7.8 H, Absolute Lymphs (auto) 1.44, Nucleated RBC % 0, Sodium 137, Potassium 3.7, Chloride 104, Carbon Dioxide 24.0, Anion Gap 9, BUN 19 H, Creatinine 1.43 H, Estim Creat Clear Calc 47.80, Est GFR (MDRD) Af Amer 61, Est GFR (MDRD) Non-Af 51 L, BUN/Creatinine Ratio 13.3, Glucose 142 H, Lactic Acid 1.9, Calcium 8.8, Total Bilirubin 0.60, AST 27, ALT 32, Alkaline Phosphatase 49, Troponin I High Sens 454 H*, Total Protein 7.7, Albumin 3.4, Globulin 4.3 H, Albumin/Globulin Ratio 0.8 L Rhythm Strip Rhythm Strip: Sinus Tach Rate: 112 Ectopy: None Imaging Radiology Impression Chest X-Ray 02/11/24 10:26 IMPRESSION: Hyperinflation. The lungs are clear. Electronically Signed: Felton Carrero MD at 10:40 EDT , Assessment & Plan Assessment/Plan (1) COVID-19 virus infection: (2) Non-ST elevated myocardial infarction: PLAN: Plan #Nonstemi admitted with a complaint of cough and shortness of breath. initial troponin was 454, and trended up to 770. EKG showed no acute ST changes on aspirin and Brilinta as well as high intensity statin; will continue. Also on ranolazine which was continued. started on heparin drip, will continue cardiology consulted; cardiology initially recommended that patient be transferred to [facility] with patient and family wish to stay here. After motor vehicle representative spoke to patient and his family, cardiology was agreeable to patient staying here. 2D echo ordered. breathing treatment with bronchodilators. Titrate oxygen to maintain sats >90% #COVID 19 infection patient said his was in the [facility] where there were several people who had respiratory symptoms COVID test is positive start on PO decadron 6mg daily; hold off on remdesivir as patient is currently on room air. breathing treatment with bronchodilators titrate oxygen to maintain sats>90% #History fo CAD s/p stents and CABG: as under nonstemi # COPD: Not in exacerbation. Breathing treatments bronchodilators. #Hyperlipidemia: on alirocumab as well as statin #Hypertension: On lisinopril and metoprolol as well as amlodipine. IV hydralazine as needed #Hypothyroidism: On Synthroid #Depression: On sertraline DVT prophylaxis: already on heparin drip. CODE STATUS: Full code Patient counseled extensively about different types of CODE STATUS including full code, DNR CCA and DNR CCA. Patient elects to be full code. Total [id number] time 17 minutes. Charges/Coding Visit Charges Inpatient E&M: 16983 Init Hosp L3 Procedures Hospitalists Procedures: 14185 Advncd Care Plan 30 Min
[2024-02-11 11:05] LABS: Atypical Lymphocyte 1+ %; Platelet Morphology LARGE
[2024-02-11 11:06] LABS: Anisocytosis 1+
[2024-02-11 11:13] LABS: Prothrombin Time (Protime)PT. 13.5 SECONDS (11.7-14.9)
[2024-02-11 11:14] LABS: Partial Thromboplast Time 29.2 Seconds (24.1-36.2)
--- NOTE | 2024-02-11 11:28 | ED.RN ---
Dr Cline called to speak to [facility] about transferring patient to [place].
[2024-02-11] MEDS: Heparin Injection (Vial) 5,000 UNIT/ML VIAL 4000 UNIT IV (11:32)
[2024-02-11] MEDS: HEPARIN/D5w 25,000 UNITS 25,000 UNITS/250 ML IV.SOLN. 10 UNITS CONT INF (11:33)
--- NOTE | 2024-02-11 11:44 | ED.RN ---
Per Dr Garcia and Dr Cline, Dr Paniagua is coming to see the patient and talk to the family. A decision would be made for after that based on his conversation.
--- NOTE | 2024-02-11 12:03 | CON.PCM.CA_ITS ---
Assessment & Plan Assessment/Plan (1) Non-ST elevated myocardial infarction: PLAN: NSTEMI in the setting of acute COVID-19 infection. Likely type II given history of severe and complex CAD. Continue aspirin. On ticagrelor. Started on heparin. Start nitrates. Continue calcium channel blockers, ranolazine and beta-blockers. Will try and get old records from [facility] along with copies of previous coronary angiography. (2) Coronary artery disease: PLAN: See #1 above. (3) COVID-19 virus infection: PLAN: As per internal medicine. (4) History of hypertension: PLAN: Amlodipine, metoprolol. (5) Elevated serum creatinine: PLAN: Monitor. HPI Consult Data Date of Consult: 02/11/24 HPI Narrative Reason for Consultation: NSTEMI HPI Narrative: 78-year-old gentleman with past medical history significant for hypertension and coronary artery disease. He has had a two-vessel CABG done in 2004 at [facility]. Subsequently he has had multiple percutaneous interventions as well. According to him, his last coronary angiography was in 2019. According to him, at that point in time he was told that he either had the option of high risk redo CABG or medical management. He opted for medical management. He has been on beta-blockers, calcium channel blockers and ranolazine since. Per him, he gets angina with moderate exertion. This is promptly relieved with sublingual nitroglycerin. For the past 3 to 4 days, patient has been having cough with shortness of breath. Also running temperature. Per him, last night he had chest pain with coughing. Subsequently he presented to the emergency room. Here in the emergency room, he has tested positive for COVID-19. Also troponins are noted to be elevated. Presently having no angina. [facility] Medical History Wears hearing aid Wears glasses Wears dentures Cancer History of posttraumatic stress disorder (PTSD) Thyroid disease Diabetes Arthritis Low iron DVT (deep venous thrombosis) Restless legs Injury of back Blackout History of ulceration Gastric reflux Former smoker On home oxygen therapy COPD (chronic obstructive pulmonary disease) Shortness of breath on exertion Leg cramps History of edema History of echocardiogram History of stress test Cardiology follow-up encounter Hypertension History of heart attack Chest pain Hx of fracture of wrist Hx of reduction of nasal fracture Home Medications ?Medication ?Instructions ?Recorded ?Last Taken ?Type amlodipine 5 mg tablet 5 mg PO BID 07/16/21 02/10/24 History aspirin 81 mg tablet,delayed 81 mg PO DAILY 07/16/21 02/10/24 History release atorvastatin 40 mg tablet 20 mg PO QHS 07/16/21 02/10/24 History carboxymethylcellulose sodium 0.5 1 drp EACH EYE TID 07/16/21 02/10/24 History % eye drops in a dropperette cholecalciferol (vitamin D3) 50 50 mcg PO DAILY 07/16/21 02/10/24 History mcg (2,000 unit) capsule (Vitamin D3) cyanocobalamin (vitamin B-12) 1,000 mcg PO DAILY 07/16/21 02/10/24 History 1,000 mcg capsule ferrous sulfate 325 mg (65 mg 325 mg PO TID 07/16/21 02/10/24 History iron) tablet ketoconazole 2 % shampoo 1 applic topical Q14D 07/16/21 02/10/24 History ketoconazole 2 % topical cream 1 applic topical BID 07/16/21 02/10/24 History levothyroxine 112 mcg tablet 112 mcg PO DAILY 07/16/21 02/10/24 History lisinopril 30 mg tablet 30 mg PO DAILY 07/16/21 02/10/24 History metoprolol tartrate 50 mg tablet 50 mg PO BID 07/16/21 02/10/24 History nitroglycerin 0.4 mg sublingual 0.4 mg sublingual Q5M PRN Chest 07/16/21 02/11/24 History tablet Pain pantoprazole 40 mg tablet,delayed 40 mg PO DAILY 07/16/21 02/10/24 History release pyridoxine (vitamin B6) 50 mg 50 mg PO DAILY 07/16/21 02/10/24 History capsule ranolazine 1,000 mg 1,000 mg PO BID 07/16/21 02/10/24 History tablet,extended release,12 hr sertraline 50 mg tablet 50 mg PO DAILY 07/16/21 02/10/24 History ticagrelor 90 mg tablet 90 mg PO BID 07/16/21 02/10/24 History triamcinolone acetonide 0.1 % 1 applic topical BID 07/16/21 02/10/24 History topical cream alirocumab 150 mg/mL subcutaneous 150 mg subcut .COMPLEX 02/11/24 Unknown History pen injector gabapentin 100 mg capsule 200 mg PO QHS 02/11/24 02/10/24 History tacrolimus 0.1 % topical ointment 1 applic topical BID 02/11/24 02/10/24 History (Protopic) Allergy/AdvReac Type Severity Reaction Status Date / Time adhesive tape (plastic tape) Allergy Rash Verified 02/11/24 09:42 bacitracin (From Neosporin Allergy Rash Verified 02/11/24 09:42 ([id number])) dipyridamole (From Allergy Rash Verified 02/11/24 09:42 Persantine) neomycin (From Neosporin Allergy Rash Verified 02/11/24 09:42 ([id number])) polymyxin B (From Neosporin Allergy Rash Verified 02/11/24 09:42 ([id number])) trifluoperazine (From AdvReac PT UNSURE Verified 02/11/24 09:42 Stelazine) OF REACTION Surgical History History of cardiac catheterization History of esophagogastroduodenoscopy (EGD) Hx of colonoscopy Hx of angioplasty History of heart artery stent Hx of heart bypass surgery Hx of elbow surgery Hx of repair of right rotator cuff Hx of repair of left rotator cuff Social History (Updated 02/11/24 @ 10:[address] Nazario Garcia MD) household members: spouse Smoking Status: Former smoker Physical Exam Narrative Comfortable. No distress. Lying flat in the bed. Respirations unlabored. Mildly tachycardic. Alert oriented x 3. No ankle edema. Risk Stratification Risk Stratification Applicable: No Objective Data Vital Signs: Vital Signs Temp Pulse Resp BP Pulse Ox O2 Del Method 98.8 F 95 15 144/64 H 95 Room Air 02/11/24 11:00 02/11/24 11:00 02/11/24 11:00 02/11/24 11:00 02/11/24 11:00 02/11/24 11:00 Oxygen Delivery Method Room Air Weight: 218 lb 7.649 oz Body Mass Index (BMI) 33.0 Lab / Micro Data 02/11/24 09:55 02/11/24 09:55 Labs: Laboratory Results - last 24 hr 02/11/24 09:55: WBC 11.0, RBC 4.24 L, Hgb 13.7, Hct 40.5, MCV 95.5 H, MCH 32.3 H , MCHC 33.8, RDW Std Deviation 46.5 H, RDW Coeff of Sarah 13.1, Plt Count 111 L, MPV 11.3, Immature Gran % (Auto) 0.600, Neut % (Auto) 70.7 H, Lymph % (Auto) 13.1 L, [place] % (Auto) 14.6 H, Eos % (Auto) 0.6, Baso % (Auto) 0.4, Absolute Neuts (auto) 7.8 H, Absolute Lymphs (auto) 1.44, Nucleated RBC % 0, Differential Comment COMMENT, Diff Path Review May foll, Atypical Lymphocytes 1+, Plt Morphology Comment LARGE, Anisocytosis 1+, PT 13.5, INR 1.0, APTT 29.2, Sodium 137, Potassium 3.7, Chloride 104, Carbon Dioxide 24.0, Anion Gap 9, BUN 19 H, C reatinine 1.43 H, Estim Creat Clear Calc 47.80, Est GFR (MDRD) Af Amer 61, Est GFR (MDRD) Non-Af 51 L, BUN/Creatinine Ratio 13.3, Glucose 142 H, Lactic Acid 1.9, Calcium 8.8, Total Bilirubin 0.60, AST 27, ALT 32, Alkaline Phosphatase 49, Troponin I High Sens 454 H*, Total Protein 7.7, Albumin 3.4, Globulin 4.3 H, A lbumin/Globulin Ratio 0.8 L Micro: Microbiology 02/11/24 10:12 Mucosa - Nasopharyngeal SARS-CoV-2, Influenza & RSV (PCR) - Final SARS-CoV-2 (COVID 19 PCR) Rhythm Strip Rhythm Strip: Sinus Tach Rate: 112 Ectopy: None Cardiology Labs/Tests 02/11/24 09:55: WBC 11.0, RBC 4.24 L, Hgb 13.7, Hct 40.5, MCV 95.5 H, MCH 32.3 H , MCHC 33.8, Plt Count 111 L, MPV 11.3, Immature Gran % (Auto) 0.600, Neut % (Auto) 70.7 H, Lymph % (Auto) 13.1 L, [place] % (Auto) 14.6 H, Eos % (Auto) 0.6, Baso % (Auto) 0.4, Absolute Neuts (auto) 7.8 H, Nucleated RBC % 0, PT 13.5, INR 1.0, APTT 29.2, Sodium 137, Potassium 3.7, Chloride 104, Carbon Dioxide 24.0, Anion Gap 9, BUN 19 H, Creatinine 1.43 H, Est GFR (MDRD) Af Amer 61, Est GFR (MDRD) Non-Af 51 L, BUN/Creatinine Ratio 13.3, Glucose 142 H, Lactic Acid 1.9, Calcium 8.8, Total Bilirubin 0.60 Rhythm: EKG: Sinus tachycardia. Q waves in inferior leads suggestive of old inferior [place]. ECHO: Stress Test: Cardiac Cath: PCI: CT Surgery: Holter monitor: EPS: PPM: CXR: Chest CT Scan: Radiography Diagnostic Testing: Radiology Impression Chest X-Ray 02/11/24 10:26 IMPRESSION: Hyperinflation. The lungs are clear. Electronically Signed: Felton Carrero MD at 10:40 EDT ,
[2024-02-11 12:19] LABS: Reflex Troponin-HS? (from REC) Y
--- NOTE | 2024-02-11 12:19 | ECHOCS_ITS ---
Reason For Study: CHEST PAIN Procedure This was a 2D Doppler, Color Flow transthoracic echocardiogram. The study was technically difficult. Due to body habitus. Contrast injection was performed. Exam performed portable in patient room. The exam was abbreviated due to the COVID 19 protocol. Left Ventricle Normal size and thickness. The left ventricular ejection fraction is 60 %. Stage 1 diastolic dysfunction. Right Ventricle Normal right ventricle. Atria There is mild biatrial dilatation. Mitral Valve Trivial mitral valve insufficiency. Tricuspid Valve Trivial tricuspid valve insufficiency. Normal pulmonary artery pressure. Aortic Valve Aortic sclerosis, no stenosis. Pulmonic Valve The pulmonic valve is not well visualized. Great Vessels Normal sized aortic root. Pericardium/Pleural No pericardial effusion. Medication Diluted definity 3.0ml given slow IV push to enhance endocardial definition. MMode/2D Measurements & Calculations LVIDd: 5.5 cm IVSd: 1.00 cm Ao root diam: 3.5 cm LVIDs: 4.0 cm LVPWd: 1.0 cm LA dimension: 4.2 cm RVDd: 3.4 cm FS: 28.5 % LAV(MOD-bp): 38.8 ml LVAd ap4: 34.6 cm2 SV(MOD-sp4): 65.2 ml LAV(MOD-bp) Indexed: 18.3 ml/m2 LVLd ap4: 8.6 cm LAV(MOD-sp2): 46.6 ml EDV(MOD-sp4): 115.0 ml LAV(MOD-sp4): 28.0 ml EDV(sp4-el): 117.4 ml LVAs ap4: 20.7 cm2 LVLs ap4: 7.7 cm ESV(MOD-sp4): 49.8 ml ESV(sp4-el): 47.6 ml EF(MOD-sp4): 56.7 % EF(sp4-el): 59.5 % SV(sp4-el): 69.9 ml LA A4 area: 12.4 cm2 RA A4 area: 12.3 cm2 TAPSE: 2.0 cm Time Measurements MV dec time: 0.11 sec Doppler Measurements & Calculations MV E max jose martin: 59.2 cm/sec Lat Peak E' Jose Martin: 7.9 cm/sec Med Peak E' Jose Martin: 6.9 cm/sec MV A max jose martin: 106.7 cm/sec E/E' lat: 7.5 E/E' med: 8.5 MV E/A: 0.56 MV V2 max: 128.8 cm/sec MV P1/2t max jose martin: 54.8 cm/sec Ao V2 max: 150.0 cm/sec MV max P.6 mmHg MV P1/2t: 44.9 msec Ao max P.0 mmHg MV V2 mean: 64.6 cm/sec Ao V2 mean: 102.8 cm/sec MV mean P.1 mmHg MV dec slope: 357.6 cm/sec2 Ao mean P.6 mmHg MV V2 VTI: 20.0 cm MVA(P1/2t): 4.9 cm2 Ao V2 VTI: 24.0 cm AV (velocity ratio): 0.73 LV V1 max: 115.5 cm/sec PA V2 max: 119.3 cm/sec TR max jose martin: 247.3 cm/sec LV V1 max P.3 mmHg PA V2 mean: 88.2 cm/sec TR max P.5 mmHg LV V1 mean P.4 mmHg PA V2 VTI: 20.4 cm LV V1 mean: 72.9 cm/sec LV V1 VTI: 17.5 cm ECHO/Echo Complete W/ Contrast Interpretation Summary The left ventricular ejection fraction is 60 %. Stage 1 diastolic dysfunction. There is mild biatrial dilatation. Aortic sclerosis, no stenosis. Ordering Physician: Sandra Paniagua Referring Physician: Norberto Whiting Performed By: Lynne Gonsales, EDEL, RVT
[2024-02-11 13:15] LABS: Troponin-I HS 770 pg/mL (3.0-78.0)
[2024-02-11] MEDS: Nitroglycerin Oint 1 INCH PACKET TD ×2 (15:41→23:00)
[2024-02-11] MEDS: dexAMETHasone 4 MG Tablet 6 MG PO (17:46)
[2024-02-11] MEDS: Ferrous Sulfate 325 MG Tablet PO ×2 (18:10→22:53)
[2024-02-11 18:32] LABS: Partial Thromboplast Time 65.4 Seconds (24.1-36.2)
[2024-02-11] MEDS: oxyCODONE 5 MG Tablet PO (19:54)
[2024-02-11 20:07] LABS: Troponin-I HS 1266 pg/mL (3.0-78.0)
[2024-02-11 22:05] LABS: Troponin-I HS 1141 pg/mL (3.0-78.0)
[2024-02-11] MEDS: TICAGRELOR 90 MG TABLET PO (22:54)
[2024-02-11] MEDS: Ranolazine 500 MG Tablet 1000 MG PO (22:55)
[2024-02-11] MEDS: Metoprolol Tartrate 50 MG Tablet PO (22:55)
[2024-02-11] MEDS: Glycerin/Hypromellose/PEG400 15 ml Bottle 1 DRP EACH EYE (22:59)
[2024-02-11] MEDS: Gabapentin 100 MG Capsule 200 MG PO (23:00)
[2024-02-11] MEDS: Triamcinolone Acetonide 0.1% Cream 15 gm 1 APPLIC TOPICAL (23:01)
[2024-02-12] VITALS (12 sets, daily range): BP systolic 123–156; BP diastolic 50–89; PULSE 61–84; RESP 16–18; TEMP 36.4–36.9; O2SAT 93–97
[2024-02-12 00:14] LABS: Partial Thromboplast Time 69.7 Seconds (24.1-36.2)
[2024-02-12 02:03] LABS: Troponin-I HS 786 pg/mL (3.0-78.0)
[2024-02-12] MEDS: Levothyroxine 112 MCG Tablet PO (05:57)
[2024-02-12] MEDS: Glycerin/Hypromellose/PEG400 15 ml Bottle 1 DRP EACH EYE ×3 (05:57→22:16)
[2024-02-12] MEDS: Nitroglycerin Oint 1 INCH PACKET TD ×3 (05:58→22:09)
[2024-02-12 07:00] LABS: Absolute Lymphocyte Count 0.96 X10^3/uL (0.83-4.51); Absolute Neutrophil Count 4.4 X10^3/uL (2.0-7.7); Basophil# 0.01 X10^3/uL; Basophil% 0.2 % (0-1); Hematocrit 37.8 % (40-54); Hemoglobin 12.7 g/dL (13.0-16.5); Lymphocyte # 0.96 X10^3/ul (0.83-4.51); Lymphocyte % 16.2 % (19-41); Mean Corp Hgb Conc 33.6 g/dL (32-36); Mean Corpuscular Hgb 32.2 pg (27.0-32.0); Mean Corpuscular Volume 95.9 fL (80-94); Mean Platelet Vol. 11.1 fl (6.2-12.0); Monocyte# 0.52 X10^3/uL; Monocyte% 8.8 % (0-10); NRBC Flagged by Analyzer 0 % (0-5); Neutrophil % 74.3 % (47-70); Platelet Count 108 K/mm3 (150-450); RBC Distribution Width CV 12.7 % (11.6-14.6); RBC Distribution Width SD 44.9 fl (35.1-43.9); Red Blood Count 3.94 M/mm3 (4.6-6.2); White Blood Count 5.9 K/mm3 (4.4-11.0)
[2024-02-12 08:07] LABS: Partial Thromboplast Time 80.1 Seconds (24.1-36.2)
[2024-02-12 08:25] LABS: Anion Gap 8 (5-15); BUN 22 mg/dL (7-18); BUN/Creat Ratio 16.1 RATIO (10-20); Calcium,Total 8.7 mg/dL (8.5-10.1); Chloride 104 mmol/L (98-107); Creatinine, Serum 1.37 mg/dL (0.70-1.30); EST Glomerular Filtration Rate 53 mL/min (>60); Est Glom Filt Rate - Afr Amer 64 mL/min (>60); Estimated Creatinine Clearance 49.89 ml/min; Glucose 192 mg/dL (74-106); Potassium 3.9 mmol/L (3.5-5.1); Sodium Level 136 mmol/L (136-145)
--- NOTE | 2024-02-12 11:00 | CASEMGMT ---
RN CM Face to Face with patient for initial transition planning/care coordination assessment. RN CM introduced self and role at [facility]. Patient lying in bed, alert and oriented. Patient willing to participate in assessment and is able to answer all questions appropriately. Care providers, pharmacy, and demographics verified. Strata: 2 PCP: [facility] Specialists: Christin BRITTON, Alexy, beauty counselor Preferred Pharmacy: [facility] Insurance:[facility] Prescription Benefit: yes Living Will/HPOA: yes, daughter Tash Sprague LNOK: , daughter Living Arrangements: Patient lives alone at this time, is at [facility]. Patient lives in single story home with on steps to enter. Patient is independent at home. Transportation: self, daughter DME/HHC: Patient shower chair, raised toilet, cane, walker, rollator, wheelchair, grab bars, cpap, oxygen at 2lpm at , has portable tank, believes is through [facility]. Patient has had HHC in the past. Patient wishes to discharge home, denies need for home health at this time. Patient states he has no further needs or concerns at this time. CM to follow for discharge planning needs that may arise. Disposition Plan: Patient to discharge home with family support and follow-up plans in place. Jennifer FALCON, RN, CM
--- NOTE | 2024-02-12 11:08 | PN_ITS ---
Subjective Subjective Patient seen and examined. He had no complaints and felt well. He was on room air. He had an uneventful night and review of systems otherwise negative. He has remained hemodynamically stable. Objective Data Objective Data Vital Signs: Vital Signs Temp Pulse Resp BP Pulse Ox O2 Del Method 98.1 F 62 16 123/64 H 94 Room Air 02/12/24 06:00 02/12/24 06:00 02/12/24 06:00 02/12/24 06:00 02/12/24 10:21 02/12/24 10:21 Oxygen Delivery Method Room Air Weight: 218 lb 7.649 oz Body Mass Index (BMI) 33.0 Intake & Output: Intake and Output for Last 24 Hours 02/10/24 02/11/24 02/12/24 23:59 23:59 23:59 Intake Total 1177.5 / 1417.5 567 / 567 Output Total 700 / 700 Balance 1177.5 / 1017.5 -133 / -133 Lab / Micro Data 02/12/24 06:25 02/12/24 06:25 Labs: Laboratory Results - last 24 hr 02/11/24 09:55: PT 13.5, INR 1.0, APTT 29.2 02/11/24 09:55: APTT Cancelled 02/11/24 12:02: Troponin I High Sens 770 H* 02/11/24 17:40: APTT 65.4 H 02/11/24 19:26: Troponin I High Sens 1266 H* 02/11/24 21:10: Troponin I High Sens 1141 H* 02/11/24 23:40: APTT 69.7 H 02/12/24 01:20: Troponin I High Sens 786 H* 02/12/24 06:25: WBC 5.9, RBC 3.94 L, Hgb 12.7 L, Hct 37.8 L, MCV 95.9 H, MCH 32.2 H, MCHC 33.6, RDW Std Deviation 44.9 H, RDW Coeff of Sarah 12.7, Plt Count 108 L, MPV 11.1, Immature Gran % (Auto) 0.500, Neut % (Auto) 74.3 H, Lymph % (Auto) 16.2 L, [place] % (Auto) 8.8, Eos % (Auto) 0.0, Baso % (Auto) 0.2, Absolute Neuts (auto) 4.4, Absolute Lymphs (auto) 0.96, Nucleated RBC % 0, Sodium 136, Potassium 3.9, Chloride 104, Carbon Dioxide 24.0, Anion Gap 8, BUN 22 H, C reatinine 1.37 H, Estim Creat Clear Calc 49.89, Est GFR (MDRD) Af Amer 64, Est GFR (MDRD) Non-Af 53 L, BUN/Creatinine Ratio 16.1, Glucose 192 H, Calcium 8.7 02/12/24 07:47: APTT 80.1 H Micro: Microbiology 02/11/24 10:12 Mucosa - Nasopharyngeal SARS-CoV-2, Influenza & RSV (PCR) - Final SARS-CoV-2 (COVID 19 PCR) Radiography Diagnostic Testing: Radiology Impression Echocardiogram 02/11/24 12:19 Interpretation Summary The left ventricular ejection fraction is 60 %. Stage 1 diastolic dysfunction. There is mild biatrial dilatation. Aortic sclerosis, no stenosis. Ordering Physician: Sandra Paniagua Referring Physician: Norberto Whiting Performed By: Lynne Gonsales, RDCS, RVT Rhythm Strip Rhythm Strip: Sinus Tach Rate: 112 Ectopy: None Physical Exam Const alert, oriented x3, no apparent distress and average body habitus General Appearance: cooperative and well developed HEENT normocephalic, head/scalp atraumatic, moist oral mucous membranes and oropharynx normal Eyes PERRL and EOMs intact bilaterally Neck no lymphadenopathy and supple Resp Resp Narrative: mildly diminished breath sounds bibasally, no wheezes or crackles. On room air. Cardio regular rate, regular rhythm, S1 normal heart sound, S2 normal heart sound and no murmurs GI normal to inspection, nondistended, normoactive bowel sounds, soft to palpation, non-tender and non-distended Extremity normal to inspection, full ROM and no clubbing, cyanosis or edema General Extremity: no tenderness to palpation of joints or extremities Skin General Skin Exam: no breakdown Neuro oriented x3, CN's II-XII intact bilaterally, moves all extremities and no focal motor deficits Sensorium / Orientation: awake and alert Motor Exam: strength 5/5 throughout Psych thought process normal, cooperative and affect normal Appearance: appropriate Assessment & Plan Assessment/Plan (1) COVID-19 virus infection: (2) Non-ST elevated myocardial infarction: PLAN: Plan #Nonstemi * admitted with a complaint of cough and shortness of breath. * initial troponin was 454, and trended up to 770. Troponins peaked at thousand 266 and has trended down to 786. * EKG showed no acute ST changes * Feels well and denies any shortness of breath. * on aspirin and Brilinta as well as high intensity statin; will continue. Also on ranolazine which was continued. * On heparin drip. Monitor BP TTE. * cardiology consulted; cardiology initially recommended that patient be transferred to [facility] with patient and family wish to stay here. After head start assistant teacher spoke to patient and his family, cardiology was agreeable to patient staying here. * 2D echo ordered and pending * breathing treatment with bronchodilators. * Titrate oxygen to maintain sats >90% * #COVID 19 infection * patient said his was in the SNF where there were several people who had respiratory symptoms * COVID test is positive * on PO decadron 6mg daily for 10-day course.; hold off on remdesivir as patient is currently on room air. * breathing treatment with bronchodilators * titrate oxygen to maintain sats>90% * #History fo CAD s/p stents and CABG: as under nonstemi # COPD: Not in exacerbation. Breathing treatments bronchodilators. #Hyperlipidemia: on alirocumab as well as statin #Hypertension: On lisinopril and metoprolol as well as amlodipine. IV hydralazine as needed #Hypothyroidism: On Synthroid #Depression: On sertraline DVT prophylaxis: already on heparin drip. CODE STATUS: Full code * Charges/Coding Visit Charges Inpatient E&M: 00565 Subs Hosp L2
--- NOTE | 2024-02-12 12:34 | PCM.PN.CARD ---
Subjective Subjective Denies any complaints. No chest pains. Objective Data Vital Signs: Vital Signs Temp Pulse Resp BP Pulse Ox O2 Del Method 98.1 F 62 16 123/64 H 94 Room Air 02/12/24 06:00 02/12/24 06:00 02/12/24 06:00 02/12/24 06:00 02/12/24 10:21 02/12/24 10:21 Oxygen Delivery Method Room Air Weight: 218 lb 7.649 oz Body Mass Index (BMI) 33.0 Intake & Output: Intake and Output for Last 24 Hours 02/10/24 02/11/24 02/12/24 23:59 23:59 23:59 Intake Total 1177.5 / 1417.5 567 / 567 Output Total 700 / 700 Balance 1177.5 / 1017.5 -133 / -133 Lab / Micro Data 02/12/24 06:25 02/12/24 06:25 Labs: Laboratory Results - last 24 hr 02/11/24 09:55: APTT Cancelled 02/11/24 12:02: Troponin I High Sens 770 H* 02/11/24 17:40: APTT 65.4 H 02/11/24 19:26: Troponin I High Sens 1266 H* 02/11/24 21:10: Troponin I High Sens 1141 H* 02/11/24 23:40: APTT 69.7 H 02/12/24 01:20: Troponin I High Sens 786 H* 02/12/24 06:25: WBC 5.9, RBC 3.94 L, Hgb 12.7 L, Hct 37.8 L, MCV 95.9 H, MCH 32.2 H, MCHC 33.6, RDW Std Deviation 44.9 H, RDW Coeff of Saarh 12.7, Plt Count 108 L, MPV 11.1, Immature Gran % (Auto) 0.500, Neut % (Auto) 74.3 H, Lymph % (Auto) 16.2 L, [place] % (Auto) 8.8, Eos % (Auto) 0.0, Baso % (Auto) 0.2, Absolute Neuts (auto) 4.4, Absolute Lymphs (auto) 0.96, Nucleated RBC % 0, Sodium 136, Potassium 3.9, Chloride 104, Carbon Dioxide 24.0, Anion Gap 8, BUN 22 H, Creatinine 1.37 H, Estim Creat Clear Calc 49.89, Est GFR (MDRD) Af Amer 64, Est GFR (MDRD) Non-Af 53 L, BUN/Creatinine Ratio 16.1, Glucose 192 H, Calcium 8.7 02/12/24 07:47: APTT 80.1 H Micro: Microbiology 02/11/24 10:12 Mucosa - Nasopharyngeal SARS-CoV-2, Influenza & RSV (PCR) - Final SARS-CoV-2 (COVID 19 PCR) Rhythm Strip Rhythm Strip: Sinus Tach Rate: 112 Ectopy: None Cardiology Labs/Tests 02/11/24 09:55: APTT Cancelled 02/11/24 17:40: APTT 65.4 H 02/11/24 23:40: APTT 69.7 H 02/12/24 06:25: WBC 5.9, RBC 3.94 L, Hgb 12.7 L, Hct 37.8 L, MCV 95.9 H, MCH 32.2 H, MCHC 33.6, Plt Count 108 L, MPV 11.1, Immature Gran % (Auto) 0.500, Neut % (Auto) 74.3 H, Lymph % (Auto) 16.2 L, [place] % (Auto) 8.8, Eos % (Auto) 0.0, Baso % (Auto) 0.2, Absolute Neuts (auto) 4.4, Nucleated RBC % 0, Sodium 136, Potassium 3.9, Chloride 104, Carbon Dioxide 24.0, Anion Gap 8, BUN 22 H, Creatinine 1.37 H, Est GFR (MDRD) Af Amer 64, Est GFR (MDRD) Non-Af 53 L, BUN/Creatinine Ratio 16.1, Glucose 192 H, Calcium 8.7 02/12/24 07:47: APTT 80.1 H Rhythm: EKG: ECHO: Stress Test: Cardiac Cath: PCI: CT Surgery: Holter monitor: EPS: PPM: CXR: Chest CT Scan: Radiography Diagnostic Testing: Radiology Impression Echocardiogram 02/11/24 12:19 Interpretation Summary The left ventricular ejection fraction is 60 %. Stage 1 diastolic dysfunction. There is mild biatrial dilatation. Aortic sclerosis, no stenosis. Ordering Physician: Sandra Paniagua Referring Physician: Norberto Whiting Performed By: Lynne Gonsales, RDCS, RVT Physical Exam Narrative Comfortable. Heart rate regular rate and rhythm. Breathing unlabored. No ankle edema. Assessment & Plan Assessment/Plan (1) Non-ST elevated myocardial infarction: PLAN: NSTEMI in the setting of acute COVID-19 infection. Likely type II given history of severe and complex CAD. Continue aspirin. On ticagrelor. Started on heparin. Nitrates. Normal LV systolic function on echocardiogram. Discussed with patient and his daughter. Continue medical management. Possible coronary angiography as outpatient if remains stable. (2) Coronary artery disease: PLAN: See #1 above. (3) COVID-19 virus infection: PLAN: As per internal medicine. (4) History of hypertension: PLAN: Amlodipine, metoprolol. (5) Elevated serum creatinine: PLAN: Monitor.
[2024-02-12] MEDS: HEPARIN/D5w 25,000 UNITS 25,000 UNITS/250 ML IV.SOLN. 9 UNITS CONT INF (13:07)
[2024-02-12] MEDS: 0.9% Saline Lock 10 ML Syringe IV (13:08)
[2024-02-12] MEDS: Sertraline 50 MG Tablet PO (13:08)
[2024-02-12] MEDS: dexAMETHasone 4 MG Tablet 6 MG PO (13:08)
[2024-02-12] MEDS: Lisinopril 10 MG Tablet 30 MG PO (13:09)
[2024-02-12] MEDS: Ranolazine 500 MG Tablet 1000 MG PO ×2 (13:09→22:11)
[2024-02-12] MEDS: Pyridoxine HCl 50 MG Tablet PO (13:09)
[2024-02-12] MEDS: Ferrous Sulfate 325 MG Tablet PO ×3 (13:10→22:11)
[2024-02-12] MEDS: Pantoprazole Sodium 40 MG Tablet PO (13:10)
[2024-02-12] MEDS: Metoprolol Tartrate 50 MG Tablet PO ×2 (13:10→22:11)
[2024-02-12] MEDS: Cyanocobalamin 500 MCG Tablet 1000 MCG PO (13:10)
[2024-02-12] MEDS: Cholecalciferol (VIT D3) 25 MCG TABLET (1,000 UNITS) 50 MCG PO (13:11)
[2024-02-12] MEDS: amLODIPine 5 MG Tablet PO (13:11)
[2024-02-12] MEDS: Aspirin E.C. 81 MG Tablet PO (13:11)
[2024-02-12] MEDS: TICAGRELOR 90 MG TABLET PO ×2 (13:11→22:11)
[2024-02-12] MEDS: Triamcinolone Acetonide 0.1% Cream 15 gm 1 APPLIC TOPICAL ×2 (13:12→22:19)
[2024-02-12 15:04] LABS: Partial Thromboplast Time 42.2 Seconds (24.1-36.2)
[2024-02-12] MEDS: oxyCODONE 5 MG Tablet PO (20:18)
[2024-02-12] MEDS: Gabapentin 100 MG Capsule 200 MG PO (22:10)
[2024-02-12] MEDS: TACROLIMUS TOPICAL (22:17)
[2024-02-13 03:58] LABS: Absolute Lymphocyte Count 1.53 X10^3/uL (0.83-4.51); Absolute Neutrophil Count 8.6 X10^3/uL (2.0-7.7); Basophil# 0.02 X10^3/uL; Basophil% 0.2 % (0-1); Hematocrit 35.2 % (40-54); Hemoglobin 11.9 g/dL (13.0-16.5); Lymphocyte # 1.53 X10^3/ul (0.83-4.51); Lymphocyte % 13.9 % (19-41); Mean Corp Hgb Conc 33.8 g/dL (32-36); Mean Corpuscular Hgb 32.4 pg (27.0-32.0); Mean Corpuscular Volume 95.9 fL (80-94); Mean Platelet Vol. 11.1 fl (6.2-12.0); Monocyte# 0.73 X10^3/uL; Monocyte% 6.7 % (0-10); NRBC Flagged by Analyzer 0 % (0-5); Neutrophil # 8.64 X10^3/uL (2.7-7.7); Neutrophil % 78.7 % (47-70); Platelet Count 124 K/mm3 (150-450); RBC Distribution Width CV 12.8 % (11.6-14.6); RBC Distribution Width SD 45.3 fl (35.1-43.9); Red Blood Count 3.67 M/mm3 (4.6-6.2)
[2024-02-13 04:12] LABS: Anion Gap 9 (5-15); BUN 32 mg/dL (7-18); BUN/Creat Ratio 22.4 RATIO (10-20); Calcium,Total 8.7 mg/dL (8.5-10.1); Chloride 105 mmol/L (98-107); Creatinine, Serum 1.43 mg/dL (0.70-1.30); EST Glomerular Filtration Rate 51 mL/min (>60); Est Glom Filt Rate - Afr Amer 61 mL/min (>60); Glucose 222 mg/dL (74-106); Sodium Level 137 mmol/L (136-145)
[2024-02-13 04:16] LABS: Partial Thromboplast Time 70.6 Seconds (24.1-36.2)
[2024-02-13 04:26] VITALS: BP 119/58; PULSE 49; RESP 18; TEMP 36.4; O2SAT 95
[2024-02-13] MEDS: Glycerin/Hypromellose/PEG400 15 ml Bottle 1 DRP EACH EYE (06:44)
[2024-02-13] MEDS: Levothyroxine 112 MCG Tablet PO (06:44)
[2024-02-13 06:45] VITALS: PULSE 48
[2024-02-13 08:13] VITALS: O2SAT 96
[2024-02-13 09:48] LABS: Partial Thromboplast Time 51.5 Seconds (24.1-36.2)
[2024-02-13 10:25] VITALS: BP 129/72; PULSE 58; RESP 18; TEMP 36.6; O2SAT 97
--- NOTE | 2024-02-13 12:03 | DCINST_ITS ---
Discharge Instructions Diet Discharge Diet: Low fat / Low cholesterol Activity Discharge Activity: Return to Normal Activity Weight Bearing Status: Weight bearing as tolerated Dressing / Incision Call your doctor if you observe: Fever of 101 or Higher, Shortness of breath, Dizziness, Swelling in the ankles and Chest pain Follow Up Care Test Results: Test results from this visit will be discussed in further detail at your follow- up appointment, if applicable. Discharge Plan Admission Admit Date/Time: 02/11/24 12:48 Primary Reason for Your Visit: nonstemi, covid Attending Provider: Bozena Cline Primary Care Provider: Norberto Whiting Instructions Patient Instructions: Exercising After a Heart Attack Discharge Orders/Prescriptions Prescriptions: New isosorbide mononitrate 30 mg Tablet Extended Release 24 Hr 30 mg PO DAILY Qty: 30 2RF dexamethasone 6 mg tablet 6 mg PO DAILY Qty: 7 0RF Continued atorvastatin 40 mg Tablet 20 mg PO QHS ketoconazole 2 % Shampoo 1 applic TOPICAL Q14D triamcinolone acetonide 0.1 % Cream 1 applic TOPICAL BID pantoprazole 40 mg Tablet,Delayed Release (Dr/Ec) 40 mg PO DAILY ferrous sulfate 325 mg (65 mg iron) Tablet 325 mg PO TID metoprolol tartrate 50 mg Tablet 50 mg PO BID nitroglycerin 0.4 mg Tablet, Sublingual 0.4 mg SUBLINGUAL Q5M PRN (Reason: Chest Pain) lisinopril 30 mg Tablet 30 mg PO DAILY ketoconazole 2 % Cream 1 applic TOPICAL BID sertraline 50 mg Tablet 50 mg PO DAILY levothyroxine 112 mcg Tablet 112 mcg PO DAILY carboxymethylcellulose sodium 0.5 % Dropperette 1 drp EACH EYE TID ranolazine 1,000 mg Tablet Extended Release 12 Hr 1,000 mg PO BID cholecalciferol (vitamin D3) [Vitamin D3] 50 mcg (2,000 unit) Capsule 50 mcg PO DAILY ticagrelor 90 mg Tablet 90 mg PO BID pyridoxine (vitamin B6) 50 mg Capsule 50 mg PO DAILY cyanocobalamin (vitamin B-12) 1,000 mcg Capsule 1,000 mcg PO DAILY aspirin 81 mg Tablet,Delayed Release (Dr/Ec) 81 mg PO DAILY alirocumab 150 mg/mL pen injector 150 mg subcut .COMPLEX Rx Instructions: 150 mg subcutaneously every 4 weeks; gabapentin 100 mg capsule 200 mg PO QHS tacrolimus [Protopic] 0.1 % ointment 1 applic topical BID Changed amlodipine 5 mg Tablet 5 mg PO DAILY Qty: 30 2RF Referrals / Follow Up: Gregory Morales MD [Non-Staff] - Norberto Whiting DO [Primary Care Provider] - Disposition Disposition (needs filled in before D/C Order can be placed): Home, Self Care
--- NOTE | 2024-02-13 12:06 | DS.PCM_ITS ---
Providers Date of Admission: 02/11/24 Date of Discharge: 02/13/24 Primary Care Physician: Dr. Norberto Whiting, Reason For Visit: NONSTEMI Diagnosis Discharge Diagnosis (1) Non-ST elevated myocardial infarction: Status: Acute Code(s): I21.4 - Non-ST elevation (NSTEMI) myocardial infarction (2) Coronary artery disease: Status: Acute Code(s): I25.10 - Atherosclerotic heart disease of alutiiq coronary artery without angina pectoris (3) COVID-19 virus infection: Status: Acute Code(s): U07.1 - COVID-19 (4) History of hypertension: Status: Acute Code(s): Z86.79 - Personal history of other diseases of the circulatory system (5) Elevated serum creatinine: Status: Acute Code(s): R79.89 - Other specified abnormal findings of blood chemistry Plan #Nonstemi * admitted with a complaint of cough and shortness of breath. * initial troponin was 454, and trended up to 770. Troponins peaked at thousand 266 and has trended down to 786. * EKG showed no acute ST changes * Feels well and denies any shortness of breath. * on aspirin and Brilinta as well as high intensity statin; will continue. Also on ranolazine which was continued. * On heparin drip. Monitor BP TTE. * cardiology consulted; cardiology initially recommended that patient be transferred to [facility] with patient and family wish to stay here. After utilization manager spoke to patient and his family, cardiology was agreeable to patient staying here. * 2D echo ordered and pending * breathing treatment with bronchodilators. * Titrate oxygen to maintain sats >90% * #COVID 19 infection * patient said his was in the SNF where there were several people who had respiratory symptoms * COVID test is positive * on PO decadron 6mg daily for 10-day course.; hold off on remdesivir as patient is currently on room air. * breathing treatment with bronchodilators * titrate oxygen to maintain sats>90% * #History fo CAD s/p stents and CABG: as under nonstemi # COPD: Not in exacerbation. Breathing treatments bronchodilators. #Hyperlipidemia: on alirocumab as well as statin #Hypertension: On lisinopril and metoprolol as well as amlodipine. IV hydralazine as needed #Hypothyroidism: On Synthroid #Depression: On sertraline DVT prophylaxis: already on heparin drip. CODE STATUS: Full code * Medications at Discharge Home Medications aspirin 81 mg tablet,delayed release 81 mg PO DAILY 07/16/21 atorvastatin 40 mg tablet 20 mg PO QHS 07/16/21 carboxymethylcellulose sodium 0.5 % eye drops in a dropperette 1 drp EACH EYE TID 07/16/21 cholecalciferol (vitamin D3) 50 mcg (2,000 unit) capsule (Vitamin D3) 50 mcg PO DAILY 07/16/21 cyanocobalamin (vitamin B-12) 1,000 mcg capsule 1,000 mcg PO DAILY 07/16/21 ferrous sulfate 325 mg (65 mg iron) tablet 325 mg PO TID 07/16/21 ketoconazole 2 % shampoo 1 applic topical Q14D 07/16/21 ketoconazole 2 % topical cream 1 applic topical BID 07/16/21 levothyroxine 112 mcg tablet 112 mcg PO DAILY 07/16/21 lisinopril 30 mg tablet 30 mg PO DAILY 07/16/21 metoprolol tartrate 50 mg tablet 50 mg PO BID 07/16/21 nitroglycerin 0.4 mg sublingual tablet 0.4 mg sublingual Q5M PRN Chest Pain 07/16/21 pantoprazole 40 mg tablet,delayed release 40 mg PO DAILY 07/16/21 pyridoxine (vitamin B6) 50 mg capsule 50 mg PO DAILY 07/16/21 ranolazine 1,000 mg tablet,extended release,12 hr 1,000 mg PO BID 07/16/21 sertraline 50 mg tablet 50 mg PO DAILY 07/16/21 ticagrelor 90 mg tablet 90 mg PO BID 07/16/21 triamcinolone acetonide 0.1 % topical cream 1 applic topical BID 07/16/21 alirocumab 150 mg/mL subcutaneous pen injector 150 mg subcut .COMPLEX 02/11/24 gabapentin 100 mg capsule 200 mg PO QHS 02/11/24 tacrolimus 0.1 % topical ointment (Protopic) 1 applic topical BID 02/11/24 amlodipine 5 mg tablet 5 mg PO DAILY #30 tabs 02/13/24 dexamethasone 6 mg tablet 6 mg PO DAILY #7 tabs 02/13/24 isosorbide mononitrate 30 mg tablet,extended release 24 hr 30 mg PO DAILY #30 tabs 02/13/24 Hospital Course Operations None Procedures 2-D Echocardiogram Summary of Care Provided Minutes Spent on Discharge: 55 Hospital Course: EDGAR CERON, is a 78 M with a PMH as outlined who presents via the ED on 02/11/2024 with a complaint of shortness of breath which had been going on for about 2-3 days prior to admission. He has an extensive history of CAD s/p CABG and stents x 3. He said his last stent was in 2019 at [facility]. He said he advised that his was in the group home and that had been ill residents quite fair. He had assisted rhinorrhea, congestion and postnasal drainage as well as sore throat. He said he had taken nitro at home and it helped with left sided chest pain which had also developed. He denied any lightheadedness, nausea vomiting or any other symptoms. Review of symptoms otherwise negative. Vitals in the ED were temperature of 98.7 Fahrenheit, pulse rate of 95, blood pressure of 143/75, respirate rate of 18 and pulse ox of 95% on room air. CBC showed hemoglobin of 13.7, WBC of 11 and platelets of 111. Chemistry showed creatinine of 1.43, sodium of 137 and potassium of 3.7 with initial troponin of 454. Subsequent troponin trended up to 770. Chest x-ray showed no acute cardiopulmonary process and EKG showed no acute ST changes. COVID test and was positive. He was admitted to be managed for non-STEMI as well as COVID-19 infection. He was started on heparin drip, imdur and continued on his aspirin and Brilinta as well as high intensity statin. He was also started on dexamethasone for the COVID. He remained on room air. His troponins did trend upwards and peaked at thousand 266. Fluid trended down to 786. Patient remained on room air throughout. He was also continued on his ranolazine. Cardiology reviewed patient and said that his non-STEMI may have been due to hypoxia from the COVID and recommended outpatient cath. Patient remained stable on room air. Recommendation was therefore for patient to be discharged home and follow-up with his utilization manager at [facility] on outpatient basis for consideration for cath or to follow-up with [facility] if he still preferred. He was discharged home with a prescription for p.o. amlodipine 5 mg daily. This had been reduced from 5 mg twice daily. He was also given a prescription for p.o. Imdur 30 mg daily. He was continued on his ranolazine, aspirin and Brilinta and high intensity statin. He was given a prescription for p.o. dexamethasone 6 mg daily for 7 days to complete a 10-day course. He is to follow-up with his primary care doctor within 1 to 2 weeks. He is follow-up with his utilization manager follow-up in [facility] follow-up with [facility] if he still prefers within 2 to 3 weeks. Of note 2D echo done showed EF of 60% with stage I diastolic dysfunction and biatrial dilatation with aortic sclerosis but no stenosis. Patient seen and examined prior to discharge. He had no active complaints and had an uneventful night. Review of systems otherwise negative. Labs and vitals reviewed. Medication reviewed and reconciled. Physical Exam Const alert, oriented x3, no apparent distress and average body habitus General Appearance: cooperative, comfortable, well kempt and well developed Orientation / Consciousness: awake HEENT normocephalic, head/scalp atraumatic, hearing grossly normal bilaterally, moist oral mucous membranes and oropharynx normal Mouth: oral and palatal mucosa normal and dry mucous membranes Eyes PERRL and EOMs intact bilaterally Neck no lymphadenopathy and supple Resp Resp Narrative: mildly diminished breath sounds bibasally, no wheezes or crackles. On room air. Cardio regular rate, regular rhythm, S1 normal heart sound, S2 normal heart sound and no murmurs GI normal to inspection, nondistended, normoactive bowel sounds, soft to palpation, non-tender and non-distended Extremity normal to inspection, full ROM and no clubbing, cyanosis or edema General Extremity: no tenderness to palpation of joints or extremities Skin General Skin Exam: no breakdown Neuro oriented x3, CN's II-XII intact bilaterally, moves all extremities and no focal motor deficits Sensorium / Orientation: awake and alert Motor Exam: strength 5/5 throughout Psych thought process normal, cooperative and affect normal Appearance: appropriate Weight / BMI Weight Weight: 218 lb 7.649 oz Body Mass Index (BMI) 33.0 ABG / Lab / Microbiology Data 02/13/24 03:40 02/13/24 03:40 Laboratory: Laboratory Results - last 24 hr 02/12/24 14:40: APTT 42.2 H 02/12/24 21:25: APTT 59.0 H 02/13/24 03:40: WBC 11.0, RBC 3.67 L, Hgb 11.9 L, Hct 35.2 L, MCV 95.9 H, MCH 32.4 H, MCHC 33.8, RDW Std Deviation 45.3 H, RDW Coeff of Sarah 12.8, Plt Count 124 L, MPV 11.1, Immature Gran % (Auto) 0.500, Neut % (Auto) 78.7 H, Lymph % (Auto) 13.9 L, Baker % (Auto) 6.7, Eos % (Auto) 0.0, Baso % (Auto) 0.2, Absolute Neuts (auto) 8.6 H, Absolute Lymphs (auto) 1.53, Nucleated RBC % 0, APTT 70.6 H, Sodium 137, Potassium 4.0, Chloride 105, Carbon Dioxide 23.0, Anion Gap 9, BUN 32 H, Creatinine 1.43 H, Estim Creat Clear Calc 47.80, Est GFR (MDRD) Af Amer 61, Est GFR (MDRD) Non-Af 51 L, BUN/Creatinine Ratio 22.4 H, Glucose 222 H, Calcium 8.7 02/13/24 08:57: APTT 51.5 H Microbiology: Microbiology 02/11/24 10:12 Mucosa - Nasopharyngeal SARS-CoV-2, Influenza & RSV (PCR) - Final SARS-CoV-2 (COVID 19 PCR) D/C Instructions Discharge Diet: Low fat / Low cholesterol Discharge Activity: Return to Normal Activity Weight Bearing Status: Weight bearing as tolerated Call your doctor if you observe: Fever of 101 or Higher, Shortness of breath, Dizziness, Swelling in the ankles and Chest pain Meaningful Use Info Meaningful Use Meaningful Use Diagnoses (Choose all that apply): AMI AMI/Post PCI/Angioplasty Aspirin given w/in 24hrs of arrival?: Yes ASA at discharge?: Yes Antiplatelet Therapy at Discharge:: Yes Statins at discharge?: Yes Mike/ARB at discharge?: Yes Beta Remigio at discharge?: Yes Done w/ Acute AL measure.: Yes Documented LVEF (%): 60 Ischemic Stroke Statin Dosing Therapy Reference: STATIN DOSE THERAPY REFERENCE: * Patients > 75 years receive moderate or high dose statin therapy. * Patients 75 years or YOUNGER should receive HIGH intensity statin dose unless contraindicated. You will be required to document reason for non-treatment if statin daily dose does not meet guidelines. HIGH DOSE STATIN THERAPY DAILY Atorvastatin > than or = to 40 mg Rosuvastatin > than or = to 20 mg Amlodipine + Atorvastatin > than or = to 2.5/40 mg Ezetimibe + Simvastatin 10/80 mg Simvastatin 80mg Discharge Plan Admission Admit Date/Time: 02/11/24 12:48 Primary Reason for Your Visit: nonstemi, covid Attending Provider: Bozena Cline Primary Care Provider: Norberto Whiting Instructions Patient Instructions: Exercising After a Heart Attack Discharge Orders/Prescriptions Prescriptions: New isosorbide mononitrate 30 mg Tablet Extended Release 24 Hr 30 mg PO DAILY Qty: 30 2RF dexamethasone 6 mg tablet 6 mg PO DAILY Qty: 7 0RF Continued atorvastatin 40 mg Tablet 20 mg PO QHS ketoconazole 2 % Shampoo 1 applic TOPICAL Q14D triamcinolone acetonide 0.1 % Cream 1 applic TOPICAL BID pantoprazole 40 mg Tablet,Delayed Release (Dr/Ec) 40 mg PO DAILY ferrous sulfate 325 mg (65 mg iron) Tablet 325 mg PO TID metoprolol tartrate 50 mg Tablet 50 mg PO BID nitroglycerin 0.4 mg Tablet, Sublingual 0.4 mg SUBLINGUAL Q5M PRN (Reason: Chest Pain) lisinopril 30 mg Tablet 30 mg PO DAILY ketoconazole 2 % Cream 1 applic TOPICAL BID sertraline 50 mg Tablet 50 mg PO DAILY levothyroxine 112 mcg Tablet 112 mcg PO DAILY carboxymethylcellulose sodium 0.5 % Dropperette 1 drp EACH EYE TID ranolazine 1,000 mg Tablet Extended Release 12 Hr 1,000 mg PO BID cholecalciferol (vitamin D3) [Vitamin D3] 50 mcg (2,000 unit) Capsule 50 mcg PO DAILY ticagrelor 90 mg Tablet 90 mg PO BID pyridoxine (vitamin B6) 50 mg Capsule 50 mg PO DAILY cyanocobalamin (vitamin B-12) 1,000 mcg Capsule 1,000 mcg PO DAILY aspirin 81 mg Tablet,Delayed Release (Dr/Ec) 81 mg PO DAILY alirocumab 150 mg/mL pen injector 150 mg subcut .COMPLEX Rx Instructions: 150 mg subcutaneously every 4 weeks; gabapentin 100 mg capsule 200 mg PO QHS tacrolimus [Protopic] 0.1 % ointment 1 applic topical BID Changed amlodipine 5 mg Tablet 5 mg PO DAILY Qty: 30 2RF Referrals / Follow Up: Gregory Morales MD [Non-Staff] - Norberto Whiting DO [Primary Care Provider] - Disposition Disposition (needs filled in before D/C Order can be placed): Home, Self Care Charges/Coding Visit Charges Inpatient E&M: 99334 Disch Hosp >30min
[2024-02-13] MEDS: Cyanocobalamin 500 MCG Tablet 1000 MCG PO (12:12)
[2024-02-13] MEDS: 0.9% Saline Lock 10 ML Syringe IV (12:12)
[2024-02-13 12:13] VITALS: BP 116/60; PULSE 54
[2024-02-13] MEDS: Ranolazine 500 MG Tablet 1000 MG PO (12:13)
[2024-02-13] MEDS: Metoprolol Tartrate 50 MG Tablet PO (12:13)
[2024-02-13] MEDS: Aspirin E.C. 81 MG Tablet PO (12:13)
[2024-02-13] MEDS: Pantoprazole Sodium 40 MG Tablet PO (12:14)
[2024-02-13] MEDS: Ferrous Sulfate 325 MG Tablet PO (12:14)
[2024-02-13] MEDS: Cholecalciferol (VIT D3) 25 MCG TABLET (1,000 UNITS) 50 MCG PO (12:15)
[2024-02-13] MEDS: TICAGRELOR 90 MG TABLET PO (12:15)
[2024-02-13] MEDS: Pyridoxine HCl 50 MG Tablet PO (12:15)
[2024-02-13] MEDS: Sertraline 50 MG Tablet PO (12:15)
[2024-02-13] MEDS: amLODIPine 5 MG Tablet PO (12:15)
[2024-02-13] MEDS: Lisinopril 10 MG Tablet 30 MG PO (12:16)
[2024-02-13] MEDS: dexAMETHasone 4 MG Tablet 6 MG PO (12:17)
[2024-02-13] MEDS: Triamcinolone Acetonide 0.1% Cream 15 gm 1 APPLIC TOPICAL (12:18)
[2024-02-13] MEDS: TACROLIMUS TOPICAL (12:19)
[2024-02-13] MEDS: Isosorbide Mononitrate 30 MG Tablet PO (12:29)
[2024-02-13 15:00] VITALS: BP 114/88; PULSE 62; RESP 18; TEMP 36.7; O2SAT 96
[2024-02-14 11:44] LABS: Pathologist Review Reviewed
== END 2024-02-13 15:10 | disposition home or self-care (01) | DRG 280 ==
LOC: ED 10:49 → PCU 12:59
PROVIDERS: Admitting Provider Student in an Organized Health Care Education/Training Program; Emergency Provider Emergency Medicine; Visit Provider Student in an Organized Health Care Education/Training Program
DX: I21.4 Non-ST elevation (NSTEMI) myocardial infarction (principal); U07.1 COVID-19; E11.9 Type 2 diabetes mellitus without complications; Z95.1 Presence of aortocoronary bypass graft; J44.9 Chronic obstructive pulmonary disease, unspecified; I10 Essential (primary) hypertension; E03.9 Hypothyroidism, unspecified; F32.A Depression, unspecified; I25.10 Atherosclerotic heart disease of native coronary artery without angina pectoris; E78.5 Hyperlipidemia, unspecified; Z95.5 Presence of coronary angioplasty implant and graft; Z79.82 Long term (current) use of aspirin; Z79.899 Other long term (current) drug therapy; Z86.718 Personal history of other venous thrombosis and embolism; Z87.891 Personal history of nicotine dependence
CPT/HCPCS: 36415; 71046; 80048; 80053; 83605; 84484; 85025; 85610; 85730; 87631; 93005; 93306; 97161; 97165; 99285; J7030; Q9957; A4216; C8929

== ENCOUNTER → 2025-01-11 | Outpatient (CLI) | payer OTHER, SELFPAY ==
[2025-01-11 13:04] LABS: Free T3 2.7 pg/mL (2.18-3.98)
== END | disposition home or self-care (01) ==
LOC: LAB 11:25
PROVIDERS: Referring Provider Chiropractor; Visit Provider Chiropractor
DX: E03.9 Hypothyroidism, unspecified (principal)
CPT/HCPCS: 36415; 84481

== ENCOUNTER → 2025-02-28 | Outpatient (CLI) | payer OTHER, SELFPAY ==
--- NOTE | 2025-02-28 12:53 | RAD_ITS ---
PROCEDURE: SHOULDER MIN 2 VIEWS 02/28/2025 REASON FOR EXAM: ARTHRITIS TECHNIQUE: Procedure Code: RADSH Modality: DX Procedure: SHOULDER MIN 2 VIEWS Laterality: Right COMPARISON: None. RAD/Shoulder min 2 Views IMPRESSION: Moderately severe right acromioclavicular joint degenerative changes are seen, with marked joint narrowing at distal clavicular inferior osteophytosis. Postsurgical changes of the right humeral head seen, with metallic anchor in pl sejal. 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 [id number] right glenohumeral joint degenerative changes are seen, with p artial joint narrowing seen. No acute fracture or dislocation is evident. Reading Location: [place] [id number]
== END | disposition home or self-care (01) ==
LOC: RAD 12:50
PROVIDERS: Referring Provider Chiropractor; Visit Provider Chiropractor
DX: M13.811 Other specified arthritis, right shoulder (principal)
CPT/HCPCS: 73030

== ENCOUNTER → 2025-04-05 | Outpatient (CLI) | payer OTHER, SELFPAY ==
--- NOTE | 2025-04-05 10:57 | RAD_ITS ---
PROCEDURE: CHEST PA AND LATERAL 04/05/2025 REASON FOR EXAM: CHRONIC OBSTRUCTIVE PULMONARY DISEASE, UNSPECIFIED TECHNIQUE: Procedure Code: RADCXR Modality: DX Procedure: CHEST PA AND LATERAL COMPARISON: 02/11/2024. FINDINGS: Prior sternotomy. The heart is normal in size. Atherosclerosis of the aortic arch. The lungs are hyperaerated but clear. No acute osseous abnormalities. Mild degenerative changes of the thoracic spine. RAD/Chest PA and Lateral IMPRESSION: No acute cardiopulmonary abnormalities. Hyperaerated lungs which may suggest COPD. Reading Location: [id number]
[2025-04-05 11:34] LABS: Color, Urine Yellow (Yellow); Glucose, Dipstick Normal (Normal); Ketone-Dipstick Negative (Negative); Leukocyte Esterase-Dipstick 25 /ul (Negative); Nitrite-Dipstick Negative (Negative); Occult Blood-Urine Negative /ul (Negative); Protein-Dipstick 15 mg/dl (Negative); Specific Gravity, Urine 1.015 (1.002-1.030); Urine Bilirubin Dipstick Negative (Negative)
--- OUTSIDE RECORDS SUMMARY | 2025-04-05 11:38 | XMS RPT_ITS | CCD ---
Author Organization [facility] Care Team Providers Care Corporate Legal Assistant Name Role Phone Manish Perez Admitting Unavailable Manish Perez Attending Unavailable Luis E Morales Primary Care Unavailable Unavailable Primary Care Provider UnavailNORBERTO Nicolas DO Primary Care Physician Elsa PT, Suad Unavailable Unavailable ROSIE MICA BUILDER-TOEING STOCKINGSJODY Attending Unavailab NORBERTO Feldman DO Primary Care Unavailable NORBERTO SOSA DO Attending Unavailable NORBERTO SOSA DO Primary Care Unavailable NORBERTO SOSA DO Attending Unavailable NORBERTO SOSA DO Primary Care Unavailable NORBERTO SOSA DO Primary Care Unavailable NORBERTO SOSA DO Attending Unavailable NORBERTO SOSA DO Primary Care Unavailable NORBERTO SOSA DO Attending Unavailable NORBERTO SOSA DO Primary Care Unavailable NORBERTO SOSA DO Attending Unavailable NORBERTO SOSA DO Primary Care Unavailable NORBERTO SOSA DO Attending Unavailable NORBERTO SOSA DO Primary Care Unavailable KAREN DENT MD Attending Unavailable NORBERTO SOSA DO Primary Care Unavailable NORBERTO SOSA DO Attending Unavailable NORBERTO SOSA DO Primary Care Unavailable NORBERTO SOSA DO Attending Unavailable NORBERTO SOSA DO Primary Care Unavailable NORBERTO SOSA DO Attending Unavailable Dr. Norberto Sosa DO Primary Care Provider [phone] Dr. Aryan Palacios DO Attending Provider [phone] Dr. Aryan Palacios DO Referring Provider Dr. Norberto Sosa DO Primary Care Physician [phone] Dr. Aryan Palacios DO Attending Physician Norberto Sosa Primary Care Unavailable Aryan Palacios Attending Unavailable Aryan Palacios Referring Unavailable Aryan Palacios Attending Unavailable Aryan Palacios Referring Unavailable Norberto Sosa Primary Care Unavailable Aryan Palacios Attending Unavailable Norberto Sosa Primary Care Unavailable Norberto Sosa Primary Care Unavailable Norberto Sosa Referring Unavailable Lamberto Hauser NP Attending Unavailable Allergies Allergy Classification Reported Allergen(s) Allergy Type Date of Onset Reaction(s) Facility (5 sources) Adhesive Tape; Translations: [ADHESIVE TAPE (ROSINS)] Allergy to substance 01-17-20 11 [facility] (7 sources) Bacitracin; Translations: [BACITRACIN] Drug Allergy 07-24-19 [facility] (17 sources) Dipyridamole; Translations: [dipyridamole] Drug Allergy 01-17-20 11 [facility] (7 sources) Polymyxin B; Translations: [POLYMYXIN B] Drug Allergy 07-24-19 [facility] (17 sources) Trifluoperazine; Translations: [trifluoperazine] Drug Allergy 01-17-20 11 Mental Status Change [facility] (10 sources) Adhesive Tape Allergy to substance Rash [facility] (10 sources) bacitracin / neomycin / polymyxin b; Translations: [bacitracin/neomyci n/polymyxin B topical] Drug Allergy [facility] (2 sources) Isosorbide; Translations: [isosorbide mononitrate] Drug Allergy headaches [facility] (3 sources) Adhesive Tape; Translations: [adhesive tape] Allergy to substance 06-09-20 [facility] (2 sources) Neomycin Drug Allergy 06-09-20 [facility] (1 source) Bacitracin Drug Allergy 06-09-20 [facility] (1 source) Dipyridamole Drug Allergy 06-09-20 [facility] (1 source) Neomycin Drug Allergy 06-09-20 [facility] (1 source) Trifluoperazine Drug Allergy 06-09-20 [facility] (1 source) polymyxin B Drug allergy (disorder) 06-09-20 [facility] Medications Current Medications Medication Drug Class(es) Dates Sig (Normalized) Sig (Original) 1 ml alirocumab 150 mg/ml auto-injector (4 sources) PCSK9 Inhibitor Start: 09-23-2022 aspirin 81 mg delayed release oral tablet (16 sources) Platelet Aggregation Inhibitor, Nonsteroidal Anti-inflammatory Drug Start: 12-15-2018 take 1 tablet by mouth once daily Comment on above: 81 mg. atorvastatin 40 mg oral tablet (16 sources) HMG-CoA Reductase Inhibitor Start: 09-07-2022 atorvastatin 40 mg oral tablet Dose : 20 mg = 0.5 tab(s), Oral, qHS, 0 Refill(s) Start Date: 09/07/22 Status: Ordered Repeat number: 1 Start: 07-16-2021 Start: 12-15-2018 take 0.5 tablet by m outh once daily at bedtime Lipitor 40 mg oral tablet 0.5 taab, Oral, qHS, # 30 tab(s), 0 Refill(s) Start Date: 12/15/18 Status: Ordered Comment on above: 20 mg. carboxymethylcellulose sodiu m 5 mg/ml ophthalmic solution (5 sources) Start: 07-16-2021 Start: 07-11-2021 take 1 drop(s) into the eye(s) three times daily carboxymethylcellulose (REFRESH) 0.5 % drop INSTILL 1 DROP IN EACH EYE THREE TIMES A DAY FOR DRY AND/OR IRRITATED EYE(S) 0 07/11/2021 Active Comment on above: INSTILL 1 DROP IN EA CH EYE THREE TIMES A DAY FOR DRY AND/OR IRRITATED EYE(S) Carboxymethylcellulose Sodium 0.5 % Dropperette (1 source) Start : 07-16 Carboxymethylcellulose Sodium 0.5 % Dropperette Active 1 NMA EACH EYE THREE TIMES A DAY July 16, 2021 1:00am [facility] carboxymethylcellulose-Na hyaluronate (10 sources) Start : 02-17 take 1 drop(s) into the eye(s) three times daily carboxymethylcellulose-Na hyaluronate 1 drop, Ophthalmic, TID, both eyes, 0 Refill(s) Start Date: 02/17/19 Status: Ordered Repeat number: 1 Start: 02-17-2019 take 1 drop(s) into the eye(s) three times daily carboxymethylcellulose-Na hyaluronate 1 drop, Ophthalmic, TID, both eyes, 0 Refill(s) Start Date: 02/17/19 Status: Ordered Clindamycin (10 sources) Lincosamide Antibacterial Start: 02-17-2019 clin damycin 1% topical gel Apply 1 bhakti, Topical, BID, 0 Refill(s) Start Date: 02/17/19 Status: Ordered Repeat number: 1 Start: 02-17-2019 clindamycin 1% topical gel Apply 1 bhakti, Topical, BID, 0 Refill(s) Start Date: 02/17/19 Status: Ordered Start: 02-17-2019 clindamycin 1% topical gel Apply 1 bhakti, Topical, BID, 0 Refill(s) Start Date: 02/17/19 Status: Ordered diclofenac sodium 0.01 mg/mg topical gel (10 sources) Nonsteroidal Anti-inflammatory Drug Start: 08-10-2018 diclofenac 1% topical gel 4 = gram(s), Topical, QID, Gel Start Date: 08/10/18 Status: Ordered Repeat number: 1 Eucerin Lotion (10 sources) Start: 08-10-2018 Eucerin Lotion Topical, PRN as needed for dry skin Start Date: 08/10/18 Status: Ordered Repeat number: 1 Start: 08-10-2018 Eucerin Lotion Topical, PRN as needed for dry skin Start Date: 08/10/18 Status: Ordered ferrous sulfate 325 mg oral tablet (16 sources) Start: 07-16-2021 take 1 tablet by kristofer three times daily Start: 06-25-2021 take 1 dose by mouth once arias y ferrous sulfate Dose : 325 mg =, Oral, Daily, 0 Refill(s) Start Date: 06/25/21 Status: Ordered Repeat number: 1 Start: 06-25-2021 ferrous sulfat e Oral, 0 Refill(s) Start Date: 06/25/21 Status: Ordered Comment on above: 325 mg. Fish Oils (3 sources) Start: 08-10-2018 Fish Oil 1000 mg oral capsule Dose : 3,000 mg = 3 cap(s), Oral, BID Start Date: 08/10/18 Status: Ordered fluticasone propionate 0.05 mg/actuat metered dose nasal spray (14 sources) Corticosteroid Start: 10-08-2023 fluticasone proprionate NASAL 50 mcg/ spray 100 mcg Dose = 2 spray(s), Nasal, qDay, # 3 EA, 1 Refill(s) Start Date: 10/08/23 Status: Ordered Quantity: 3.0 Unit: EA Repeat number: 2 Start: 06-03-2022 fluticasone pr oprionate NASAL 50 mcg/ spray qDay, 0 Refill(s) Start Date: 06/03/22 Status: Ordered Start: 12-24-2021 take 2 spray(s) nasa l route once daily fluticasone (FLONASE) 50 mcg/actuation nasal spray Use 2 Sprays in each nostril once daily. 0 12/24/2021 Active Comment on above: Use 2 Sprays in each nostril once daily. gabapentin 300 mg oral capsule (13 sources) Anti-epileptic Agent Start: 12-15-2024 End: 07-03-2025 gabapentin 300 mg oral capsule Dose : 300 mg = 1 cap(s), Oral, BID, # 200 cap(s), 1 Refill(s), Pharmacy: [facility], Neurogenic pain, 172.2, cm, 12/15/24 10:29:00 EDT, Height, 96.6, kg, 12/15/24 10:29:00 EDT, Dosing Weight Start Date: 12/15/24 Stop Date: 07/03/25 Status: Ordered Quantity: 200.0 Unit: cap(s) Repeat number: 2 Indications: Neuralgia and neuritis, unspecified; Start: 07-17-2024 End: 08-16-2024 gabapentin 300 mg oral capsu le Dose : 300 mg = 1 cap(s), Oral, BID, # 180 cap(s), 0 Refill(s), Pharmacy: [id number], Neurogenic pain, 174.6, cm, 07/17/24 14:33:00 EST, Height, 100.7, kg, 07/17/24 14:33:00 EST, Dosing Weight Start Date: 07/17/24 Stop Date: 08/16/24 Status: Ordered Quantity: 180.0 Unit: cap(s) Repeat number: 1 Indications: Neuralgia and neuritis, unspecified; Start: 04-14-2024 End: 05-14-2024 gabapentin 300 mg oral capsu le Dose : 300 mg = 1 cap(s), Oral, BID, # 180 cap(s), 0 Refill(s), Pharmacy: [id number], Neurogenic pain, 172, cm, 04/14/24 14:16:00 EDT, Height, 98.4, kg, 04/14/24 14:04:00 EDT, Dosing Weight Start Date: 04/14/24 Stop Date: 05/14/24 Status: Ordered Quantity: 180.0 Unit: cap(s) Repeat number: 1 Indication: Neuralgia and neuritis, unspecified Start: 03-03-2024 take 3 capsules by m outh twice daily Start: 02-11-2024 End: 03-03-2024 take 2 capsules by mouth at bedtime Gabapentin 100 mg capsule Discontinued 200 mg PO AT BEDTIME February 11, 2024 12:00am March 03, 2024 10:37am nerve pain Start: 09-07-2022 gabapentin 100 mg oral capsule Dose : 100 mg = 1 cap(s), Oral, BID, # 60 cap(s), 0 Refill(s), 97.6 Start Date: 09/07/22 Status: Ordered hydrOXYzine hydrochloride 25 mg oral tablet (3 sources) Antihistamine Start: 08-10-2018 hydrOXYzine hydrochloride 25 mg oral tablet Dose : 25 mg = 1 tab(s), Oral, BID, PRN anxiety Start Date: 08/10/18 Status: Ordered 24 hr isosorbide mononitrate 30 mg extended release oral tablet (6 sources) Nitrate Vasodilator Start: 06-09-2024 take 1 tablet by mouth once daily, then take 1 tablet by mouth every twenty-four hours Start: 03-03-2024 End: 06-09-2024 take 1 tablet by mouth twice daily, then take 1 tablet by mouth every twenty-four hours Isosorbide Mononitrate 30 mg tablet extended release 24 hr Discontinued 30 mg PO TWICE A DAY 60 March 03, 2024 11:11am June 09, 2024 12:24pm Start: 02-13-2024 End: 03-03-2024 take 1 tablet by mouth once daily, then take 1 tablet by mouth every twenty-four hours Isosorbide Mononitrate 30 mg Tablet Extended Release 24 Hr Discontinued 30 mg PO DAILY 30 February 13, 2024 12:00am March 03, 2024 11:11am ketoconazole 20 mg/ml topical cream (20 sources) Azole Antifungal Start: 04-09-2023 ketoconazole 2% topical cream Topical, qDay, 0 Refill(s), 100.6 Start Date: 04/09/23 Status: Ordered Repeat number: 1 Start: 05-21-2022 ketoconazole ( NIZORAL) 2 % shampoo SHAMPOO A SUFFICIENT AMOUNT EXTERNALLY EVERY DAY DIRECTED 0 05/21/2022 Active Start: 05-21-2022 ketoconazole ( NIZORAL) 2 % cream APPLY A SUFFICIENT AMOUNT EXTERNALLY TWICE A DAY DIRECTED 0 05/21/2022 Active Start: 07-16-2021 Start: 07-16-2021 Start: 02-17-2019 ketoconazole 1 % topical shampoo Apply 1 bhakti, Topical, qDay, PRN dandruff, 0 Refill(s), Shampoo Start Date: 02/17/19 Status: Ordered Repeat number: 1 Comment on above: APPLY A SUFFICIENT A MOUNT EXTERNALLY TWICE A DAY DIRECTED SHAMPOO A SUFFICIENT AMOUNT EXTERNALLY EVERY DAY DIRECTED levothyroxine sodium 0.112 mg oral tablet (16 sources) l-Thyroxine Start: 07-17-2024 levothyroxine 112 mcg (0.112 mg) oral tablet Dose : 112 mcg = 1 tab(s), Oral, qDay, # 90 tab(s), 1 Refill(s), Pharmacy: [id number], 174.6, cm, 07/17/24 14:33:00 EST, Height, kg, 07/17/24 14:33:00 EST, Dosing Weight Start Date: 07/17/24 Status: Ordered Quantity: 90.0 Unit: tab(s) Repeat number: 2 Start: 04-25-2024 levothyroxine 112 mcg (0.112 mg) oral tablet Dose : 112 mcg = 1 tab(s), Oral, qDay, # 90 tab(s), 0 Refill(s), Pharmacy: [id number], 172.5, cm, 04/25/24 14:29:00 EST, Height, kg, 04/25/24 14:29:00 EST, Dosing Weight Start Date: 04/25/24 Status: Ordered Quantity: 90.0 Unit: tab(s) Repeat number: 1 Start: 01-13-2022 levothyroxine (SYNTHROID) 112 mcg tablet 0.112 mg. 0 01/13/2022 Active Start: 07-16-2021 take 1 tablet by kristofer th once daily Start: 05-20-2020 levothyroxine 112 mcg (0.112 mg) oral tablet Dose : 112 mcg = 1 tab(s), Oral, qDay, # 30 tab(s), 0 Refill(s) Start Date: 05/20/20 Status: Ordered Comment on above: 0.112 mg. lisinopril 30 mg oral tablet (16 sources) Angiotensin Converting Enzyme Inhibitor Start: 08-12-2018 take 1 tablet by mouth once daily Comment on above: Take 1 tablet by kristofer th once daily. magnesium oxide 500 mg oral capsule (2 sources) Start: 06-09-2024 take 1 capsule by mouth twice daily metoprolol tartrate 50 mg oral tablet (12 sources) beta-Adrenergic Remigio Start: 08-10-2018 take 1 tablet by mouth twice daily nitroglycerin 0.4 mg sublingual tablet (16 sources) Nitrate Vasodilator Start: 07-16-2021 Start: 08-12-2018 nitroglycerin 0.4 mg sublingual tablet 0.4 mg Dose = 1 tab(s), Sublingual, q5min, PRN as needed for chest pain, 0 Refill(s) Start Date: 08/12/18 Status: Ordered Repeat number: 1 Comment on above: 0.4 mg. pantoprazole 40 mg delayed release oral tablet (12 sources) Proton Pump Inhibitor Start: 12-15-2018 pantoprazole 40 mg oral enteric coated tablet Dose : 40 mg = 1 tab(s), Oral, qDayAC, # 90 tab(s), 1 Refill(s), Pharmacy: [facility], 172.2, cm, 12/15/24 10:29:00 EDT, Height, kg, 12/15/24 10:29:00 EDT, Dosing Weight Start Date: 12/15/24 Status: Ordered Quantity: 90.0 Unit: tab(s) Repeat number: 2 pramoxine hydrochloride 10 mg/ml topical lotion (11 sources) Start: 04-09-2023 pramoxine 1% topical lotion Topical, BID, 0 Refill(s) Start Date: 04/09/23 Status: Ordered Start: 12-15-2018 apply 1 dose topical ly twice daily as needed pramoxine 1% topical cream Dose = 1 bhakti, Topical, BID, PRN as needed for itching, # 30 gram(s), 0 Refill(s) Start Date: 12/15/18 Status: Ordered Quantity: 30.0 Unit: g Repeat number: 1 Start: 12-15-2018 apply 1 dose topical ly twice daily as needed pramoxine 1% topical cream Dose = 1 bhakti, Topical, BID, PRN as needed for itching, # 30 gram(s), 0 Refill(s) Start Date: 12/15/18 Status: Ordered 12 hr ranolazine 1000 mg extended release oral tablet (19 sources) Anti-anginal Start: 07-17-2024 Ranexa 500 mg oral tablet, extended release Dose : 1,000 mg = 2 tab(s), Oral, BID, # 120 tab(s), 0 Refill(s), Pharmacy: [id number], 174.6, cm, 07/17/24 14:33:00 EST, Height, kg, 07/17/24 14:33:00 EST, Dosing Weight Start Date: 07/17/24 Status: Ordered Quantity: 120.0 Unit: tab(s) Repeat number: 1 Start: 01-13-2022 take 1 tablet by kristofer th every twelve hours ranolazine SR (RANEXA) 1,000 mg tab ER 12 hr Take 1 tablet by mouth q 12 HR. 0 01/13/2022 Active Start: 07-16-2021 take 1 tablet by kristofer th twice daily Start: 12-16-2018 Ranexa 500 mg oral tablet, extended release Dose : 1,000 mg = 2 tab(s), Oral, BID, # 120 tab(s), 0 Refill(s) Start Date: 12/16/18 Status: Ordered Quantity: 120.0 Unit: tab(s) Repeat number: 1 Comment on above: Take 1 tablet by kristofer th q 12 HR. sertraline 50 mg oral tablet (16 sources) Serotonin Reuptake Inhibitor Start: 12-15-2024 sertraline 50 mg oral tablet Dose : 50 mg = 1 tab(s), Oral, qDay, # 100 tab(s), 1 Refill(s), Pharmacy: [facility], 172.2, cm, 12/15/24 10:29:00 EDT, Height, kg, 12/15/24 10:29:00 EDT, Dosing Weight Start Date: 12/15/24 Status: Ordered Quantity: 100.0 Unit: tab(s) Repeat number: 2 Start: 07-16-2021 sertraline 50 mg oral tablet Dose : 50 mg = 1 tab(s), Oral, qDay, # 90 tab(s), 1 Refill(s), Pharmacy: [facility], 172.5, cm, 04/25/24 14:29:00 EST, Height, kg, 04/25/24 14:29:00 EST, Dosing Weight Start Date: 04/25/24 Status: Ordered Quantity: 90.0 Unit: tab(s) Repeat number: 2 Start: 03-24-2021 sertraline 25 mg oral tablet Dose : 50 mg = 2 tab(s), Oral, qDay, # 90 tab(s), 0 Refill(s) Start Date: 03/24/21 Status: Ordered Comment on above: Take 1 tablet by [facility] once daily. tacrolimus 0.001 mg/mg topical ointment (2 sources) Calcineurin Inhibitor Immunosuppressant Start: 02-11-2024 ticagrelor 90 mg oral tablet (16 sources) Start: 12-15-2018 take 1 tablet by mouth twice daily Comment on above: Take 1 tablet by [facility] twice daily. triamcinolone acetonide 1 mg/ml topical cream (12 sources) Corticosteroid Start: 07-16-2021 Start: 12-15-2018 triamcinolone 0.1% topical paste Apply 1 bhakti, Oral, BID, # 5 gram(s), 0 Refill(s), Paste Start Date: 12/15/18 Status: Ordered Quantity: 5.0 Unit: g Repeat number: 1 vitamin b12 1 mg oral capsule (16 sources) Vitamin B12 Start: 07-16-2021 take 1 capsule by [facility] once daily Start: 08-10-2018 cyanocobalamin 1000 mcg oral tablet Dose : 1,000 mcg = 1 tab(s), Oral, Daily Start Date: 08/10/18 Status: Ordered Repeat number: 1 Start: 08-10-2018 cyanocobalamin 1000 mcg oral tablet Dose : 1,000 mcg = 1 tab(s), Oral, Daily Start Date: 08/10/18 Status: Ordered Comment on above: Take 1 tablet by kristofer once daily. Completed/Discontinued Medications Medication Drug Class(es) Dates Sig (Normalized) Sig (Original) acetaminophen 500 mg oral tablet (12 sources) Start: 07-16-2021 End: 02-11-2024 take 1 tablet by mouth every six hours as needed for pain Acetaminophen 500 mg Tablet Discontinued 500 mg PO EVERY 6 HOURS as needed for Pain July 16, 2021 1:00am February 11, 2024 11:04am Start: 12-16-2018 Tylenol 325 mg oral capsule Dose : 650 mg =, Oral, q4h, PRN Pain, scale 1-3, 0 Refill(s) Start Date: 12/16/18 Status: Ordered Repeat number: 1 alirocumab 150 mg/mL subcutaneous solution (7 sources) Start: 12-07-2022 inject 1 mL by subcutaneous injection every other week alirocumab 150 mg/mL subcutaneous solution Dose : 150 mg = 1 mL, Subcutaneous, q2wk, # 2 mL, 0 Refill(s) Start Date: 12/07/22 Status: Ordered Start: 09-23-2022 alirocumab 150 mg/mL subcutaneous solution SUBCUTANEOUS, 1 Refill(s), 0 Refill(s) Start Date: 09/23/22 Status: Ordered Repeat number: 1 Start: 09-23-2022 alirocumab 150 mg/mL subcutaneous solution SUBCUTANEOUS, 1 Refill(s), 0 Refill(s) Start Date: 09/23/22 Status: Ordered amLODIPine 5 mg oral tablet (20 sources) Dihydropyridine Calcium Channel Remigio Start: 07-16-2021 End: 02-13-2024 take 1 tablet by mouth twice daily Amlodipine 5 mg Tablet Discontinued 5 mg PO TWICE A DAY July 16, 2021 1:00am February 13, 2024 12:02pm Start: 02-17-2019 End: 03-03-2024 take 1 tablet by mouth once daily Amlodipine 5 mg Tablet Discontinued 5 mg PO DAILY February 13, 2024 12:02pm March 03, 2024 10:37am Comment on above: 5 mg. ascorbic acid 250 mg chewable tablet (2 sources) Vitamin C Start: 07-16-2021 End: 02-11-2024 take 1 tablet by mouth once daily Ascorbic Acid (Vitamin C) (Vitamin C) 250 mg Tablet,Chewable Discontinued 250 mg PO DAILY July 16, 2021 1:00am February 11, 2024 11:04am cholecalciferol 0.05 mg oral tablet (16 sources) Vitamin D Start: 02-02-2022 take 2 tablets by mouth once daily cholecalciferol (VITAMIN D3) 50 mcg (2,000 unit) tablet Take 2 tablets by mouth once daily. 0 02/02/2022 Active Start: 07-16-2021 take 1 capsule by [facility] once daily Start: 08-10-2018 cholecalcifero l 2000 intl units oral capsule Dose : 2,000 unit(s) = 1 cap(s), Oral, Daily Start Date: 08/10/18 Status: Ordered Repeat number: 1 Start: 08-10-2018 cholecalcifero l 2000 intl units oral capsule Dose : 2,000 unit(s) = 1 cap(s), Oral, Daily Start Date: 08/10/18 Status: Ordered Comment on above: Take 2 tablets by [facility] once daily. desonide 0.5 mg/ml topical cream (13 sources) Corticosteroid Start: 04-09-2023 desonide 0.05% topical cream Topical, TID, uses twice a day to forehead rash if flaring, 0 Refill(s), 100.6 Start Date: 04/09/23 Status: Ordered Repeat number: 1 Start: 05-21-2022 desonide (TRID ESILON) 0.05 % cream APPLY A SUFFICIENT AMOUNT EXTERNALLY TWICE A DAY TO FOREHEAD RASH FOR UP TO 2 WEEKS IF FLARING 0 05/21/2022 Active Comment on above: APPLY A SUFFICIENT A MOUNT EXTERNALLY TWICE A DAY TO FOREHEAD RASH FOR UP TO 2 WEEKS IF FLARING dexamethasone 6 mg oral tablet (2 sources) Corticosteroid Start: End: take 1 tablet by mouth once daily Dexamethasone 6 mg tablet Discontinued 6 mg PO DAILY 7 0 February 13, 2024 12:00am March 03, 2024 10:56am doxycycline monohydrate 100 mg oral tablet (2 sources) Tetracycline-class Drug Start: End: take 1 tablet by mouth twice daily doxycycline monohydrate 100 mg tablet Take 1 tablet by mouth twice daily for 5 days. 10 tablet 0 06/18/2022 06/23/2022 Comment on above: Take 1 tablet by [facility] twice daily for 5 days. Virgin-3 Fatty Acids-Vitamin E (Fish Oil) 1,000 mg Capsule (2 sources) Start: End: Virgin-3 Fatty Acids-Vitamin E (Fish Oil) 1,000 mg Capsule Discontinued 3000 NMA PO THREE TIMES A DAY July 16, 2021 1:00am February 11, 2024 11:02am oxyCODONE hydrochloride 5 mg oral tablet (2 sources) Opioid Agonist Start: End: take 1 tablet by mouth every six hours as needed for pain Oxycodone 5 mg tablet Discontinued 5 mg PO EVERY 6 HOURS as needed for pain 28 7 0 July 24, 2021 February 11, 2024 11:03am Postoperative pain Other acute postprocedural pain vitamin b6 50 mg oral tablet (16 sources) Start: take 1 tablet by mouth once daily in the morning pyridoxine, vitamin B6, (VITAMIN B6) 50 mg tablet Take 1 tablet by mouth every morning. 0 02/02/2022 Active Start: 07-16-2021 take 1 capsule by [facility] once daily Start: 08-12-2018 pyridoxine 50 mg oral tablet Dose : 50 mg = 1 tab(s), Oral, qDay, 0 Refill(s) Start Date: 08/12/18 Status: Ordered Repeat number: 1 Comment on above: Take 1 tablet by [facility] every morning. Problems Problem Classification Problem Date Documented Date Episodic/Chronic Acute myocardial infarction (2 sources) Myocardial infarction; Translations: [Non-ST elevation (NSTEMI) myocardial infarction] 02-21-2024 Chronic Cardiac dysrhythmias (2 sources) Sinus tachycardia; Translations: [Tachycardia, unspecified] 02-21-2024 Episodic Chronic kidney disease (14 sources) Chronic kidney disease stage 3; Translations: [Chronic kidney disease stage 3A ] 07-13-2022 Chronic Chronic obstructive pulmonary disease and bronchiectasis (11 sources) Chronic obstructive lung disease; Translations: [Chronic obstructive pulmonary disease, unspecified] Onset: 07-24-2019 Chronic Coronary atherosclerosis and other heart disease (20 sources) Coronary arteriosclerosis; Translations: [Ischemic myocardial dysfunction] 01-22-2020 Chronic Comment on above: Coronary disease wit h OR in 1985 status post angioplasty, coronary bypass graft x2 in 2006 involving JAMES to LAD and vein graft to obtuse marginal followed by PCI to RCA in 2014. CABG with JAMES to th e LAD, SVG to the [id number] with stent to the RCA 2011PTCA with stent to the proximal RCA- 2017 Coronary atherosclerosis and other heart disease (10 sources) Patient post percutaneous transluminal coronary angioplasty 07-24-2019 Episodic Diabetes mellitus without complication (20 sources) Type 2 diabetes mellitus; Translations: [Type 2 diabetes mellitus controlled by diet] Onset: 5 07-13-2022 Chronic Diabetes mellitus without complication (2 sources) Non-diabetic hyperglycemia; Translations: [Hyperglycemia, unspecified] 02-21-2024 Episodic Esophageal disorders (11 sources) Gastroesophageal reflux disease 01-22-2020 Chronic Essential hypertension (10 sources) Essential hypertension 07-13-2022 Chronic Genitourinary symptoms and ill-defined conditions (1 source) Scalding pain on urination ; Translations: [Dysuria] Episodic Immunizations and screening for infectious disease (1 source) Suspected disease caused by 2019-nCoV; Translations: [Suspected COVID-19 virus infection] Episodic Malaise and fatigue (7 sources) Fatigue 02-25-2024 Episodic Mood disorders (10 sources) Recurrent major depression 07-13-2022 Chronic Nonspecific chest pain (2 sources) Chest pain Onset: Episodic Osteoporosis (5 sources) Osteoporosis 05-24-2024 Chronic Other circulatory disease (2 sources) H/O: hypertension; Translations: [Personal history of other diseases of the circulatory system] 06-09-2024 Episodic Other circulatory disease (2 sources) Low blood pressure; Translations: [Hypotension, unspecified] 02-21-2024 Episodic Other connective tissue disease (1 source) Muscle pain; Translations: [Myalgia, other site] Episodic Other connective tissue disease (1 source) Other symptoms and signs involving the musculoskeletal system; Translations: [Other symptoms and signs involving the musculoskeletal system] Episodic Other lower respiratory disease (9 sources) Dyspnea on exertion 12-07-2022 Episodic Other nervous system disorders (10 sources) Carpal tunnel syndrome 01-13-2021 Chronic Other nervous system disorders (2 sources) Postoperative pain ; Translations: [Other acute postprocedural pain] 07-24-2021 Episodic Other non-traumatic joint disorders (1 source) Other specified arthritis, right shoulder; Translations: [Other specified arthritis, right shoulder] Onset: Chronic Other nutritional; endocrine; and metabolic disorders (10 sources) Body mass index 30+ - obesity 01-22-2020 Chronic Other nutritional; endocrine; and metabolic disorders (2 sources) History of hypercholesterolemia; Translations: [Personal history of other endocrine, nutritional and metabolic disease] 06-09-2024 Episodic Other nutritional; endocrine; and metabolic disorders (2 sources) H/O: hypothyroidism; Translations: [Personal history of other endocrine, nutritional and metabolic disease] 02-21-2024 Episodic Other screening for suspected conditions (not mental disorders or infectious disease) (12 sources) Liver function tests abnormal; Translations: [Serum creatinine raised] 01-22-2020 Episodic Other upper respiratory infections (1 source) Acute maxillary sinusitis; Translations: [Acute maxillary sinusitis, unspecified] Episodic Peripheral and visceral atherosclerosis (1 source) Peripheral vascular disease 12-15-2024 Chronic Residual codes; unclassified (7 sources) Not for resuscitation 04-25-2024 Episodic Spondylosis; intervertebral disc disorders; other back problems (10 sources) Lumbar radiculopathy; Translations: [Radiculopathy, lumbar region] Episodic Thyroid disorders (1 source) Hypothyroidism, unspecified; Translations: [Hypothyroidism, unspecified] Onset: 5 Chronic Unclassified (10 sources) Grade A1 albuminuria 07-13-2022 Unclassified (10 sources) Long-term current use of proton pump inhibitor therapy 07-13-2022 Unclassified (7 sources) History of SARS-CoV-2 02-25-2024 Unclassified (2 sources) Lipoprotein (a) hyperlipoproteinemia 08-18-2024 Viral infection (2 sources) Disease caused by 2019-nCoV; Translations: [COVID-19] 02-21-2024 Episodic Results Test Name Value Interpretation Reference Range Facility Shoulder min 2 Viewson 02-28 Shoulder min 2 Views [facility] [address] [place], [place] [id number] Shoulder min 2 Views MR#: [id number] Acct: [id number] Name: EDGAR CERON Rep #: [id number] : 1945 M 79 From: Nahum Spears PCP: Dr. Norberto Sosa DO Status: REG CLI Study: Shoulder min 2 Views Date of Exam: 02/28/25 Exam# [id number] Ordering Dr: Aryan Palacios PROCEDURE: SHOULDER MIN 2 VIEWS 02/28/2025 REASON FOR EXAM: ARTHRITIS TECHNIQUE: Procedure Code: RADSH Modality: DX Procedure: SHOULDER MIN 2 VIEWS Laterality: Right COMPARISON: None. RAD/Shoulder min 2 Views IMPRESSION: Moderately severe right acromioclavicular joint degenerative changes are seen, with marked joint narrowing at distal clavicular inferior osteophytosis. Postsurgical changes of the right humeral head seen, with metallic anchor in place. 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 [id number] right glenohumeral joint degenerative changes are seen, with partial joint narrowing seen. No acute fracture or dislocation is evident. Reading Location: [place] [address] CC: Dr. Aryan Palacios DO; Dr. Norberto Sosa DO Club Car Attendant: Signed Normal [facility] Free T3on 01-11-2025 Free T3 [Mass/Vol] 2.7 pg/mL Normal 2.18-3.98 [facility] Comment on above: Order Comment: N Performed By: #### L [id number] #### [facility] [address] [place], [place], [id number] Free [id number] By: Aryan salazar on 01-11-2025 Free T3 [Mass/Vol] 2.7 pg/mL 2.18-3.98 [facility] APOBon 12-11-2024 Apolipoprotein B [Mass/Vol] 92 mg/dL High <90 [facility] Comment on above: Result Comment: Cate rable < 90 Borderline High 90 - 99 High 100 - 130 Very High >130 ASCVD RISK THERAPEUTIC TARGET CATEGORY APO B (mg/dL) Very High Risk <80 (if extreme risk <70) High Risk <90 Moderate Risk <90 Performed At: Lab[address] [id number] Semaj Mai MD Ph:[phone] Performed By: #### C MP, LIPID, GFR, [id number] ####[address] [place], [place] [address] .GFRon 12-08-2024 Estimated Glomerular Filtration Rate 48 ml/min/1.73sqm Normal [facility] Comment on above: Result Comment: Stages of Chronic Kidney Disease (CKD) Stage Description eGFR(ml/min/1.73 sq.m.) CKD 1 Normal kidney function or >=90 normal kindney function with possible kidney damage (ex. Proteinuria) CKD 2 Kidney damage with mild loss 60-89 of kidney function CKD 3a Mild to moderate loss of kidney 45-59 function CKD 3b Moderate to severe loss of 30-44 of kindey function CKD 4 Severe loss of kidney function 15-29 CKD 5 Kidney failure <15 Note: (go live 2024) the eGFR calculation was updated to the 2020 CKD-EPI creatinine equation without a race factor to calculate the eGFR results. Performed By: #### C MP, LIPID, GFR, [id number] ####[address] [place], [place] [address] CMPon 12-08-2024 Albumin Level 3.8 G/dL Normal 3.4-4.8 [facility] Comment on above: Performed By: #### C MP, LIPID, GFR, [id number] ####[address] [place], [place] [address] Albumin/Globulin [Mass ratio] 1.0 {ratio} Low 1.1-2.5 [facility] Comment on above: Performed By: #### C MP, LIPID, GFR, [id number] ####[address] [place], [place] [address] ALP [Catalytic activity/Vol] 54 U/L Normal 40-135 [facility] Comment on above: Performed By: #### C MP, LIPID, GFR, [id number] ####[address] [place], [place] [address] ALT [Catalytic activity/Vol] 39 U/L Normal 16-63 [facility] Comment on above: Performed By: #### C MP, LIPID, GFR, [id number] ####[address] [place], [place] [address] AST [Catalytic activity/Vol] 30 U/L Normal 10-40 [facility] Comment on above: Performed By: #### C MP, LIPID, GFR, [id number] ####[address] [place], [place] [address] Bili Total 0.6 mg/dL Normal 0.2-1.0 [facility] Comment on above: Result Comment: Use of this assay is not recommended for patients undergoing treatment with eltrombopag due to the potential for falsely elevated results. Performed By: #### C MP, LIPID, GFR, [id number] ####[facility] [address] [place], [place] [address] BUN/Creatinine Ratio 15 ratio Normal 7-27 [facility] Comment on above: Performed By: #### C MP, LIPID, GFR, [id number] ####[facility] [address] [place], [place] [address] Calcium [Mass/Vol] 9.3 mg/dL Normal 8.4-10.2 [facility] Comment on above: Performed By: #### C MP, LIPID, GFR, [id number] ####[facility] [address] [place], [place] [address] Chloride [Moles/Vol] 105 mmol/L Normal 98-107 [facility] Comment on above: Performed By: #### C MP, LIPID, GFR, [id number] ####[place] [address] [place], [place] [address] CO2 [Moles/Vol] 28 mmol/L Normal 23-31 [facility] Comment on above: Performed By: #### C MP, LIPID, GFR, [id number] ####[address] [place], [place] [address] Creatinine [Mass/Vol] 1.47 mg/dL High 0.67-1.17 [facility] Comment on above: Performed By: #### C MP, LIPID, GFR, [id number] ####[address] [place], [place] [address] Electrolyte Balance 9.0 mEq/L Normal 4.0-15.0 [facility] Comment on above: Performed By: #### C MP, LIPID, GFR, 194899 ####[address] [place], [place] [address] Globulin 3.7 G/dL Normal 2.7-4.4 [facility] Comment on above: Performed By: #### C MP, LIPID, GFR, 603178 ####[address] [place], [place] [address] Glucose [Mass/Vol] 150 mg/dL High 83-110 [facility] Comment on above: Performed By: #### C MP, LIPID, GFR, 549101 ####[address] [place], [place] [address] Potassium [Moles/Vol] 4.6 mmol/L Normal 3.5-5.1 [facility] Comment on above: Performed By: #### C MP, LIPID, GFR, 648408 ####[address] [place], [place] [address] Sodium [Moles/Vol] 142 mmol/L Normal 136-145 [facility] Comment on above: Performed By: #### C MP, LIPID, GFR, 400909 ####[address] [place], [place] [address] Total Protein 7.5 G/dL Normal 6.4-8.2 [facility] Comment on above: Performed By: #### C MP, LIPID, GFR, [id number] ####[address] [place], [place] [address] Urea nitrogen [Mass/Vol] 22 mg/dL High 7-18 [facility] Comment on above: Performed By: #### C MP, LIPID, GFR, 244233 ####[place] [address] [place], [place] [address] LABORATORYOrdered By: SYSTEM SYSTEM on 12-08-2024 Albumin BCP dye [Mass/Vol] 3.8 G/dL Normal 3.4 - 4.8 G/dL AO ADM SS Albumin/Globulin [Mass ratio] 1.0 {ratio} Low 1.1 - 2.5 ratio AO ADM SS ALP [Catalytic activity/Vol] 54 U/L Normal 40 - 135 U/L AO ADM SS ALT With P-5'-P [Catalytic activity/Vol] 39 U/L Normal 16 - 63 U/L AO ADM SS AST With P-5'-P [Catalytic activity/Vol] 30 U/L Normal 10 - 40 U/L AO ADM SS Bilirubin [Mass/Vol] 0.6 mg/dL Normal 0.2 - 1 .0 mg/dL AO ADM SS Comment on above: Interpretive Data: U se of this assay is not recommended for patients undergoing treatment with eltrombopag due to the potential for falsely elevated results. Calcium [Mass/Vol] 9.3 mg/dL Normal 8.4 - 10. 2 mg/dL AO ADM SS Chloride [Moles/Vol] 105 mmol/L Normal 98 - 10 7 mmol/L AO ADM SS CO2 [Moles/Vol] 28 mmol/L Normal 23 - 31 mmol/L AO ADM SS Creatinine [Mass/Vol] 1.47 mg/dL High 0.67 - 1.17 mg/dL AO ADM SS Electrolyte Balance 9.0 mEq/L Normal 4.0 - 15 .0 mEq/L AO ADM SS Estimated Glomerular Filtration Rate 48 ml/min/1.73sqm Invalid Interpretation Code AO [facility] S Comment on above: Interpretive Data: Stages of Chronic Kidney Disease (CKD) Stage Description eGFR(ml/min/1.73 sq.m.) CKD 1 Normal kidney function or >=90 normal kindney function with possible kidney damage (ex. Proteinuria) CKD 2 Kidney damage with mild loss 60-89 of kidney function CKD 3a Mild to moderate loss of kidney 45-59 function CKD 3b Moderate to severe loss of 30-44 of kindey function CKD 4 Severe loss of kidney function 15-29 CKD 5 Kidney failure <15 Note: (go live 2024) the eGFR calculation was updated to the 2020 CKD-EPI creatinine equation without a race factor to calculate the eGFR results. Globulin 3.7 G/dL Normal 2.7 - 4.4 G/dL AO ADM SS Glucose [Mass/Vol] 150 mg/dL High 83 - 110 mg/dL AO ADM SS Potassium [Moles/Vol] 4.6 mmol/L Normal 3.5 - 5.1 mmol/L AO ADM SS Protein [Mass/Vol] 7.5 G/dL Normal 6.4 - 8.2 G/dL AO ADM SS Sodium [Moles/Vol] 142 mmol/L Normal 136 - 145 mmol/L AO ADM SS Urea nitrogen [Mass/Vol] 22 mg/dL High 7 - 18 mg/dL AO ADM SS Urea nitrogen/Creatinine [Mass ratio] 15 ratio Normal 7 - 27 ratio AO ADM SS LABORATORYOrdered By: Derek Box on 12-08-2024 Cholesterol [Mass/Vol] 179 mg/dL Normal 0 - 200 mg/dL AO ADM SS Comment on above: Interpretive Data: C holesterol Reference Interval: Less than 200 Desirable 200-239 Borderline high risk 240 and above High risk Cholesterol in HDL [Mass/Vol] 40 mg/dL Normal 40 - 60 mg/dL AO ADM SS Cholesterol in LDL [Mass/Vol] 82 mg/dL Normal 0 - 130 mg/dL AO ADM SS Triglyceride [Mass/Vol] 285 mg/dL High 0 - 150 mg/dL AO ADM SS Comment on above: Interpretive Data: T riglyceride Reference Interval: Less than 150 Normal 150-199 Borderline high risk 200-499 High risk 500 or higher Very high risk LIPIDon 12-08-2024 Cholesterol [Mass/Vol] 179 mg/dL Normal 0-200 [facility] Comment on above: Result Comment: Chol esterol Reference Interval: Less than 200 Desirable 200-239 Borderline high risk 240 and above High risk Performed By: #### C MP, LIPID, GFR, [id number] ####[address] [place], [place] [address] Cholesterol in HDL [Mass/Vol] 40 mg/dL Normal 40-60 [facility] Comment on above: Performed By: #### C MP, LIPID, GFR, [id number] ####[address] [place], [place] [address] Cholesterol in LDL [Mass/Vol] 82 mg/dL Normal 0-130 [facility] Comment on above: Performed By: #### C MP, LIPID, GFR, [id number] ####[address] [place], [place] [address] Triglyceride [Mass/Vol] 285 mg/dL High 0-150 [facility] Comment on above: Result Comment: Trig lyceride Reference Interval: Less than 150 Normal 150-199 Borderline high risk 200-499 High risk 500 or higher Very high risk Performed By: #### C MP, LIPID, GFR, [id number] ####[address] [place], [place] [address] .GFRon 09-20-2024 Estimated Glomerular Filtration Rate 42 ml/min/1.73sqm Normal [facility] Comment on above: Result Comment: Stages of Chronic Kidney Disease (CKD) Stage Description eGFR(ml/min/1.73 sq.m.) CKD 1 Normal kidney function or >=90 normal kindney function with possible kidney damage (ex. Proteinuria) CKD 2 Kidney damage with mild loss 60-89 of kidney function CKD 3a Mild to moderate loss of kidney 45-59 function CKD 3b Moderate to severe loss of 30-44 of kindey function CKD 4 Severe loss of kidney function 15-29 CKD 5 Kidney failure <15 Note: (go live 2024) the eGFR calculation was updated to the 2020 CKD-EPI creatinine equation without a race factor to calculate the eGFR results. Performed By: #### R FP, GFR #### [address] [place] [address] [place] [address] CRURon 09-20-2024 U Creatinine 94.9 mg/dL Normal [facility] Comment on above: Performed By: #### C RUR, UA, PRUR #### [address] [place], [place] [address] PRURon 09-20-2024 U Protein 15 mg/dL Normal [facility] Comment on above: Performed By: #### C RUR, UA, PRUR #### [address] [address] RFPon 09-20-2024 Albumin Level 4.1 G/dL Normal 3.4-4.8 [facility] Comment on above: Performed By: #### R FP, GFR #### [address] [address] BUN/Creatinine Ratio 19 ratio Normal 7-27 [facility] Comment on above: Performed By: #### R FP, GFR #### [address] [address] Calcium [Mass/Vol] 9.6 mg/dL Normal 8.4-10.2 [facility] Comment on above: Performed By: #### R FP, GFR #### [address] [address] Chloride [Moles/Vol] 103 mmol/L Normal 98-107 [facility] Comment on above: Performed By: #### R FP, GFR #### [address] [address] CO2 [Moles/Vol] 29 mmol/L Normal 23-31 [facility] Comment on above: Performed By: #### R FP, GFR #### [address] [address] Creatinine [Mass/Vol] 1.65 mg/dL High 0.70-1.30 [facility] Comment on above: Result Comment: Test ing performed on Siemens Dimension EXL analyzer using a modified kinetic Michael technique. Performed By: #### R FP, GFR #### [address] [address] Electrolyte Balance 9.0 mEq/L Normal 4.0-15.0 [facility] Comment on above: Performed By: #### R FP, GFR #### [address] [address] Glucose [Mass/Vol] 101 mg/dL Normal 83-110 [facility] Comment on above: Performed By: #### R FP, GFR #### [address] [address] Phosphate [Mass/Vol] 4.5 mg/dL High 2.3-4.1 [facility] Comment on above: Performed By: #### R FP, GFR #### [address] [address] Potassium [Moles/Vol] 4.5 mmol/L Normal 3.5-5.1 [facility] Comment on above: Performed By: #### R FP, GFR #### [address] [address] Sodium [Moles/Vol] 141 mmol/L Normal 136-145 [facility] Comment on above: Performed By: #### R FP, GFR #### [address] [address] Urea nitrogen [Mass/Vol] 32 mg/dL High 7-18 [facility] Comment on above: Performed By: #### R FP, GFR #### [address] [address] UAon 09-20-2024 Color (U) Yellow Normal [facility] Comment on above: Performed By: #### C RUR, UA, PRUR #### [address] [address] Glucose (U) [Mass/Vol] Negative Normal Negative [facility] Comment on above: Performed By: #### C RUR, UA, PRUR #### [address] [address] Ketones Ql (U) Negative Normal Negative [facility] Comment on above: Performed By: #### C RUR, UA, PRUR #### [address] [address] UA Appear Clear Normal Clear [facility] Comment on above: Performed By: #### C RUR, UA, PRUR #### [address] [address] UA Blood Negative Normal Negative [facility] Comment on above: Performed By: #### C RUR, UA, PRUR #### [address] [address] UA Leuk Est Negative Normal Negative [facility] Comment on above: Performed By: #### C RUR, UA, PRUR #### [place] [id number] UA Nitrite Negative Normal Negative [facility] Comment on above: Performed By: #### C RUR, UA, PRUR #### [place] [address] UA pH 5.5 Normal 5.0 - 8.0 [facility] Comment on above: Performed By: #### C RUR, UA, PRUR #### [place] [address] UA Protein Negative Normal Negative [facility] Comment on above: Performed By: #### C RUR, UA, PRUR #### [place] [address] UA Spec Grav 1.020 Normal 1.015-1.025 [facility] Comment on above: Performed By: #### C RUR, UA, PRUR #### [place] [address] UA Specimen Type Void Normal [facility] Comment on above: Performed By: #### C RUR, UA, PRUR #### [place] [address] UA Urobilinogen 0.2 E.U./dL Normal 0.2-1.0 [facility] Comment on above: Performed By: #### C RUR, UA, PRUR #### [place] [address] Urobilinogen (U) [Mass/Vol] Negative Normal Negative [facility] Comment on above: Performed By: #### C RUR, UA, PRUR #### [place] [address] MALBRon 09-04-2024 U Ratio Alb/Cre 8 mg/G Normal 0-30 [facility] Comment on above: Performed By: #### R SHYANNE, MALURI #### [address] [address] SPEon 08-18-2024 SPE Interpretation Normal serum protein electrophoresis pattern. No abnormality detected. Normal [facility] Comment on above: Result Comment: Elec tronically Signed by: SANDRINE CASTRO MD 08/18/2024 17:12 EST Performed By: #### M ALBR #### [address] [address] Albumin 3.8 G/dL Normal 3.3-5.0 [facility] Comment on above: Performed By: #### M ALBR #### [address] [address] Alpha 1 0.2 G/dL Normal 0.1-0.4 [facility] Comment on above: Performed By: #### M ALBR #### [address] [address] Alpha 2 1.1 G/dL Normal 0.6-1.2 [facility] Comment on above: Performed By: #### M ALBR #### [address] [address] Beta 1.1 G/dL Normal 0.6-1.3 [facility] Comment on above: Performed By: #### M ALBR #### [address] [address] Gamma 0.9 G/dL Normal 0.7-1.6 [facility] Comment on above: Performed By: #### M ALBR #### [address] [address] APOBon 08-12-2024 Apolipoprotein B [Mass/Vol] 96 mg/dL High <90 [facility] Comment on above: Result Comment: Cate edmond < 90 Borderline High 90 - 99 High 100 - 130 Very High >130 ASCVD RISK THERAPEUTIC TARGET CATEGORY APO B (mg/dL) Very High Risk <80 (if extreme risk <70) High Risk <90 Moderate Risk <90 Performed At: [facility] [address] [id number] Semaj Mai MD Ph:[phone] Performed By: #### M ALBR #### [place] [address] LIPOAon 08-11-2024 Lipoprotein a [Moles/Vol] 79.9 nmol/L High <75.0 [facility] Comment on above: Result Comment: Note : Values greater than or equal to 75.0 nmol/L may indicate an independent risk factor for CHD, but must be evaluated with caution when applied to non- populations due to the influence of genetic factors on Lp(a) across ethnicities. Performed At: [facility] [address] [id number] Lucille Hamm PhD Ph:[phone] Performed By: #### M ALBR #### [place] [address] .Auto Diffon 08-10-2024 Basophil, Absolute 0.0 10 3/mcL Normal 0.0-0.2 [facility] Comment on above: Performed By: #### C MP, LIPID, TSHR, ANEU, ADIFF, [id number], [id number], GFR, CBC ####[place] [address]#### C3C4A, SPE ####[address] [address] Basophils/100 WBC (Bld) 0.4 % Normal 0.0-2.5 [facility] Comment on above: Performed By: #### C MP, LIPID, TSHR, ANEU, ADIFF, [id number], 490755, GFR, CBC ####[place] [address]#### C3C4A, SPE ####[address] [address] Eosinophil, Absolute 0.3 10 3/mcL Normal 0.0-0.7 [facility] Comment on above: Performed By: #### C MP, LIPID, TSHR, ANEU, ADIFF, 260177, 641169, GFR, CBC ####[place] [address]#### C3C4A, SPE ####[address] [address] Eosinophils/100 WBC (Bld) 3.8 % Normal 0.0-7.0 [facility] Comment on above: Performed By: #### C MP, LIPID, TSHR, ANEU, ADIFF, 395406, 003642, GFR, CBC ####[place] [address]#### C3C4A, SPE ####[address] [address] Lymphocyte, Absolute 2.5 10 3/mcL Normal 0.9-4.3 [facility] Comment on above: Performed By: #### C MP, LIPID, TSHR, ANEU, ADIFF, 591624, 026192, GFR, CBC ####[place] [address]#### C3C4A, SPE ####[address] [address] Lymphocytes/100 WBC (Bld) 35.1 % Normal 20.0-40.0 [facility] Comment on above: Performed By: #### C MP, LIPID, TSHR, ANEU, ADIFF, 804713, 537135, GFR, CBC ####[place] [address]#### C3C4A, SPE ####[address] [address] Monocyte, Absolute 0.8 10 3/mcL Normal 0.1-1.4 [facility] Comment on above: Performed By: #### C MP, LIPID, TSHR, ANEU, ADIFF, 874181, 581656, GFR, CBC ####[place] [address]#### C3C4A, SPE ####[address] [address] Monocytes/100 WBC (Bld) 11.7 % Normal 2.0-13.0 [facility] Comment on above: Performed By: #### C MP, LIPID, TSHR, ANEU, ADIFF, 529619, 449945, GFR, CBC ####[address] [address]#### C3C4A, SPE ####[address] [address] Neutrophils/100 WBC (Bld) 49.0 % Low 50.0-75.0 [facility] Comment on above: Performed By: #### C MP, LIPID, TSHR, ANEU, ADIFF, [id number], 253378, GFR, CBC ####[place] [address]#### C3C4A, SPE ####[place] [address] .GFRon 08-10-2024 Estimated Glomerular Filtration Rate 38 ml/min/1.73sqm Normal [facility] Comment on above: Result Comment: Stages of Chronic Kidney Disease (CKD) Stage Description eGFR(ml/min/1.73 sq.m.) CKD 1 Normal kidney function or >=90 normal kindney function with possible kidney damage (ex. Proteinuria) CKD 2 Kidney damage with mild loss 60-89 of kidney function CKD 3a Mild to moderate loss of kidney 45-59 function CKD 3b Moderate to severe loss of 30-44 of kindey function CKD 4 Severe loss of kidney function 15-29 CKD 5 Kidney failure <15 Note: (go live 2024) the eGFR calculation was updated to the 2020 CKD-EPI creatinine equation without a race factor to calculate the eGFR results. Performed By: #### C MP, LIPID, TSHR, ANEU, ADIFF, [id number], 311660, GFR, CBC ####[address] [address]#### C3C4A, SPE ####[address] [address] .NEUABSon 08-10-2024 Neutrophil, Absolute 3.5 10 3/mcL Normal 2.3-8.1 [facility] Comment on above: Performed By: #### C MP, LIPID, TSHR, ANEU, ADIFF, 185800, 034114, GFR, CBC ####[address] [address]#### C3C4A, SPE ####[place] [address] D3H3Own 08-10-2024 Complement C3A 156.0 mg/dL Normal 90.0-170.0 [facility] Comment on above: Result Comment: No te - New Reference Range in effect 20 Performed By: #### M ALBR #### [address] [address] Complement C4A 55.0 mg/dL High 16.0-38.0 [facility] Comment on above: Performed By: #### M ALBR #### [address] [address] CBCon 08-10-2024 Erythrocyte distribution width (RBC) [Ratio] 12.8 % Normal 11.5-15.5 [facility] Comment on above: Performed By: #### C MP, LIPID, TSHR, ANEU, ADIFF, [id number], [id number], GFR, CBC ####[address] [address]#### C3C4A, SPE ####[place] [address] Hematocrit (Bld) [Volume fraction] 43.5 % Normal 40.0-52.0 [facility] Comment on above: Performed By: #### C MP, LIPID, TSHR, ANEU, ADIFF, [id number], [id number], GFR, CBC ####[address] [address]#### C3C4A, SPE ####[place] [address] Hgb 14.7 G/dL Normal 13.0-17.5 [facility] Comment on above: Performed By: #### C MP, LIPID, TSHR, ANEU, ADIFF, [id number], [id number], GFR, CBC ####[place] [address]#### C3C4A, SPE ####[place] [address] MCH (RBC) [Entitic mass] 32.9 pg Normal 27.0-33.0 [facility] Comment on above: Performed By: #### C MP, LIPID, TSHR, ANEU, ADIFF, [id number], [id number], GFR, CBC ####[place] [address]#### C3C4A, SPE ####[place] [address] MCHC 33.8 G/dL Normal 32.0-36.0 [facility] Comment on above: Performed By: #### C MP, LIPID, TSHR, ANEU, ADIFF, [id number], [id number], GFR, CBC ####[place] [address]#### C3C4A, SPE ####[place] [address] MCV (RBC) [Entitic vol] 97.1 fL Normal 81.0-100.0 [facility] Comment on above: Performed By: #### C MP, LIPID, TSHR, ANEU, ADIFF, [id number], [id number], GFR, CBC ####[place] [address]#### C3C4A, SPE ####[place] [address] Platelet 133 10 3/mcL Low 150-450 [facility] Comment on above: Performed By: #### C MP, LIPID, TSHR, ANEU, ADIFF, [id number], [id number], GFR, CBC ####[place] [address]#### C3C4A, SPE ####[place] [address] Platelet mean volume (Bld) [Entitic vol] 9.3 fL Normal 6.4-10.5 [facility] Comment on above: Performed By: #### C MP, LIPID, TSHR, ANEU, ADIFF, [id number], [id number], GFR, CBC ####[place] [address]#### C3C4A, SPE ####[place] [address] RBC 4.48 10 6/mcL Low 4.50-6.00 [facility] Comment on above: Performed By: #### C MP, LIPID, TSHR, ANEU, ADIFF, [id number], [id number], GFR, CBC ####[place] [address]#### C3C4A, SPE ####[place] [address] WBC 7.2 10 3/mcL Normal 4.5-10.8 [facility] Comment on above: Performed By: #### C MP, LIPID, TSHR, ANEU, ADIFF, [id number], [id number], GFR, CBC ####[place] [address]#### C3C4A, SPE ####[place] [address] CMPon 08-10-2024 Albumin Level 3.7 G/dL Normal 3.4-4.8 [facility] Comment on above: Performed By: #### C MP, LIPID, TSHR, ANEU, ADIFF, [id number], [id number], GFR, CBC ####[place] [address]#### C3C4A, SPE ####[place] [address] Albumin/Globulin [Mass ratio] 0.9 {ratio} Low 1.1-2.5 [facility] Comment on above: Performed By: #### C MP, LIPID, TSHR, ANEU, ADIFF, [id number], [id number], GFR, CBC ####[place] [address]#### C3C4A, SPE ####[place] [address] ALP [Catalytic activity/Vol] 63 U/L Normal 40-135 [facility] Comment on above: Performed By: #### C MP, LIPID, TSHR, ANEU, ADIFF, [id number], [id number], GFR, CBC ####[place] [address]#### C3C4A, SPE ####[place] [address] ALT [Catalytic activity/Vol] 32 U/L Normal 16-63 [facility] Comment on above: Performed By: #### C MP, LIPID, TSHR, ANEU, ADIFF, [id number], 760500, GFR, CBC ####[place] [address]#### C3C4A, SPE ####[place] [address] AST [Catalytic activity/Vol] 26 U/L Normal 10-40 [facility] Comment on above: Performed By: #### C MP, LIPID, TSHR, ANEU, ADIFF, [id number], [id number], GFR, CBC ####[place] [address]#### C3C4A, SPE ####[place] [address] Bili Total 0.5 mg/dL Normal 0.2-1.0 [facility] Comment on above: Result Comment: Use of this assay is not recommended for patients undergoing treatment with eltrombopag due to the potential for falsely elevated results. Performed By: #### C MP, LIPID, TSHR, ANEU, ADIFF, [id number], [id number], GFR, CBC ####[place] [address]#### C3C4A, SPE ####[address] [address] BUN/Creatinine Ratio 15 ratio Normal 7-27 [facility] Comment on above: Performed By: #### C MP, LIPID, TSHR, ANEU, ADIFF, [id number], [id number], GFR, CBC ####[address] [address]#### C3C4A, SPE ####[address] [address] Calcium [Mass/Vol] 9.5 mg/dL Normal 8.4-10.2 [facility] Comment on above: Performed By: #### C MP, LIPID, TSHR, ANEU, ADIFF, [id number], 744224, GFR, CBC ####[address] [address]#### C3C4A, SPE ####[address] [address] Chloride [Moles/Vol] 103 mmol/L Normal 98-107 [facility] Comment on above: Performed By: #### C MP, LIPID, TSHR, ANEU, ADIFF, [id number], [id number], GFR, CBC ####[address] [address]#### C3C4A, SPE ####[address] [address] CO2 [Moles/Vol] 27 mmol/L Normal 23-31 [facility] Comment on above: Performed By: #### C MP, LIPID, TSHR, ANEU, ADIFF, [id number], [id number], GFR, CBC ####[address] [address]#### C3C4A, SPE ####[address] [address] Creatinine [Mass/Vol] 1.77 mg/dL High 0.70-1.30 [facility] Comment on above: Result Comment: Test ing performed on Siemens Dimension EXL analyzer using a modified kinetic Michael technique. Performed By: #### C MP, LIPID, TSHR, ANEU, ADIFF, [id number], [id number], GFR, CBC ####[place] [address]#### C3C4A, SPE ####[place] [address] Electrolyte Balance 10.0 mEq/L Normal 4.0-15.0 [facility] Comment on above: Performed By: #### C MP, LIPID, TSHR, ANEU, ADIFF, [id number], [id number], GFR, CBC ####[place] [address]#### C3C4A, SPE ####[place] [address] Globulin 3.9 G/dL High 1.5-3.8 [facility] Comment on above: Performed By: #### C MP, LIPID, TSHR, ANEU, ADIFF, [id number], 453416, GFR, CBC ####[place] [address]#### C3C4A, SPE ####[place] [address] Glucose [Mass/Vol] 107 mg/dL Normal 83-110 [facility] Comment on above: Performed By: #### C MP, LIPID, TSHR, ANEU, ADIFF, [id number], 638627, GFR, CBC ####[place] [address]#### C3C4A, SPE ####[place] [address] Potassium [Moles/Vol] 4.4 mmol/L Normal 3.5-5.1 [facility] Comment on above: Performed By: #### C MP, LIPID, TSHR, ANEU, ADIFF, [id number], [id number], GFR, CBC ####[place] [address]#### C3C4A, SPE ####[place] [address] Sodium [Moles/Vol] 140 mmol/L Normal 136-145 [facility] Comment on above: Performed By: #### C MP, LIPID, TSHR, ANEU, ADIFF, [id number], 520261, GFR, CBC ####[address] [address]#### C3C4A, SPE ####[address] [address] Total Protein 7.6 G/dL Normal 6.4-8.2 [facility] Comment on above: Performed By: #### C MP, LIPID, TSHR, ANEU, ADIFF, [id number], 746674, GFR, CBC ####[address] [address]#### C3C4A, SPE ####[address] [address] Urea nitrogen [Mass/Vol] 27 mg/dL High 7-18 [facility] Comment on above: Performed By: #### C MP, LIPID, TSHR, ANEU, ADIFF, [id number], [id number], GFR, CBC ####[address] [address]#### C3C4A, SPE ####[address] [address] LABORATORYOrdered By: Mariza Paris on 08-10-2024 Albumin DL <= 20 mg/L (U) [Mass/Vol] 11.3 mg/L Invalid Interpretation Code AO ADM SS Albumin/Creatinine DL <= 20 mg/L (U) [Mass ratio] 0 mcg/mg Normal 0 - 30 mcg/mg AO Chemistry S Protein (U) [Mass/Vol] 25 mg/dL Invalid Interpretation Code AO ADM SS U Ratio Prot/Creat 0.2 ratio Invalid Interpretation Code AO Chemistry S Cholesterol [Mass/Vol] 169 mg/dL Normal 0 - 200 mg/dL AO ADM SS Comment on above: Interpretive Data: C holesterol Reference Interval: Less than 200 Desirable 200-239 Borderline high risk 240 and above High risk Cholesterol in HDL [Mass/Vol] 36 mg/dL Low 40 - 60 mg/dL AO ADM SS Cholesterol in LDL [Mass/Vol] 86 mg/dL Normal 0 - 130 mg/dL AO ADM SS Triglyceride [Mass/Vol] 236 mg/dL High 0 - 150 mg/dL AO ADM SS Comment on above: Interpretive Data: T riglyceride Reference Interval: Less than 150 Normal 150-199 Borderline high risk 200-499 High risk 500 or higher Very high risk LABORATORYOrdered By: SYSTEM SYSTEM on 08-10-2024 Albumin BCP dye [Mass/Vol] 3.7 G/dL Normal 3.4 - 4.8 G/dL AO ADM SS Albumin/Globulin [Mass ratio] 0.9 {ratio} Low 1.1 - 2.5 ratio AO ADM SS ALP [Catalytic activity/Vol] 63 U/L Normal 40 - 135 U/L AO ADM SS ALT With P-5'-P [Catalytic activity/Vol] 32 U/L Normal 16 - 63 U/L AO ADM SS AST With P-5'-P [Catalytic activity/Vol] 26 U/L Normal 10 - 40 U/L AO ADM SS Basophils (Bld) [#/Vol] 0.0 103/mcL Normal 0.0 - 0.2 10^3/mcL AO Workflow SS Basophils/100 WBC (Bld) 0.4 % Normal 0.0 - 2.5 % AO Workflow SS Bilirubin [Mass/Vol] 0.5 mg/dL Normal 0.2 - 1 .0 mg/dL AO ADM SS Comment on above: Interpretive Data: U se of this assay is not recommended for patients undergoing treatment with eltrombopag due to the potential for falsely elevated results. Calcium [Mass/Vol] 9.5 mg/dL Normal 8.4 - 10. 2 mg/dL AO ADM SS Chloride [Moles/Vol] 103 mmol/L Normal 98 - 10 7 mmol/L AO ADM SS CO2 [Moles/Vol] 27 mmol/L Normal 23 - 31 mmol/L AO ADM SS Complement C3 [Mass/Vol] 156.0 mg/dL Normal 90.0 - 170.0 mg/dL AH ADM SS Comment on above: Interpretive Data: * *Note - New Reference Range in effect 20 Complement C4 [Mass/Vol] 55.0 mg/dL High 16.0 - 38.0 mg/dL AH ADM SS Creatinine [Mass/Vol] 1.77 mg/dL High 0.70 - 1.30 mg/dL AO ADM SS Comment on above: Interpretive Data: T esting performed on Siemens Dimension EXL analyzer using a modified kinetic Michael technique. Electrolyte Balance 10.0 mEq/L Normal 4.0 - 15 .0 mEq/L AO ADM SS Eosinophil, Absolute 0.3 103/mcL Normal 0.0 - 0 .7 10^3/mcL AO Workflow SS Eosinophils/100 WBC (Bld) 3.8 % Normal 0.0 - 7.0 % AO Workflow SS Erythrocyte distribution width (RBC) [Ratio] 12.8 % Normal 11.5 - 15.5 % AO Workflow SS Estimated Glomerular Filtration Rate 38 ml/min/1.73sqm Invalid Interpretation Code AO Chemistry S Comment on above: Interpretive Data: Stages of Chronic Kidney Disease (CKD) Stage Description eGFR(ml/min/1.73 sq.m.) CKD 1 Normal kidney function or >=90 normal kindney function with possible kidney damage (ex. Proteinuria) CKD 2 Kidney damage with mild loss 60-89 of kidney function CKD 3a Mild to moderate loss of kidney 45-59 function CKD 3b Moderate to severe loss of 30-44 of kindey function CKD 4 Severe loss of kidney function 15-29 CKD 5 Kidney failure <15 Note: (go live 2024) the eGFR calculation was updated to the 2020 CKD-EPI creatinine equation without a race factor to calculate the eGFR results. Globulin 3.9 G/dL High 1.5 - 3.8 G/dL AO ADM SS Glucose [Mass/Vol] 107 mg/dL Normal 83 - 110 mg/dL AO ADM SS Hematocrit (Bld) [Volume fraction] 43.5 % Normal 40.0 - 52.0 % AO Workflow SS Hemoglobin (Bld) [Mass/Vol] 14.7 G/dL Normal 13.0 - 17.5 G/dL AO Workflow SS Lymphocytes (Bld) [#/Vol] 2.5 103/mcL Normal 0.9 - 4.3 10^3/mcL AO Workflow SS Lymphocytes/100 WBC (Bld) 35.1 % Normal 20.0 - 40.0 % AO Workflow SS MCH (RBC) [Entitic mass] 32.9 pg Normal 27.0 - 33.0 pg AO Workflow SS MCHC 33.8 G/dL Normal 32.0 - 36.0 G/dL AO Workflow SS MCV (RBC) [Entitic vol] 97.1 fL Normal 81.0 - 100.0 fL AO Workflow SS Monocytes (Bld) [#/Vol] 0.8 103/mcL Normal 0.1 - 1.4 10^3/mcL AO Workflow SS Monocytes/100 WBC (Bld) 11.7 % Normal 2.0 - 13.0 % AO Workflow SS Neutrophils (Bld) [#/Vol] 3.5 103/mcL Normal 2.3 - 8.1 10^3/mcL AO Workflow SS Neutrophils/100 WBC (Bld) 49.0 % Low 50.0 - 75.0 % AO Workflow SS Platelet mean volume (Bld) [Entitic vol] 9.3 fL Normal 6.4 - 10.5 fL AO Workflow SS Platelets (Bld) [#/Vol] 133 103/mcL Low 150 - 450 10^3/mcL AO Workflow SS Potassium [Moles/Vol] 4.4 mmol/L Normal 3.5 - 5.1 mmol/L AO ADM SS Protein [Mass/Vol] 7.6 G/dL Normal 6.4 - 8.2 G/dL AO ADM SS RBC (Bld) [#/Vol] 4.48 106/mcL Low 4.50 - 6.0 0 10^6/mcL AO Workflow SS Sodium [Moles/Vol] 140 mmol/L Normal 136 - 145 mmol/L AO ADM SS TSH Qn 3.33 m[IU]/L Normal 0.36 - 3.74 mcIU/mL AO ADM SS Urea nitrogen [Mass/Vol] 27 mg/dL High 7 - 18 mg/dL AO ADM SS Urea nitrogen/Creatinine [Mass ratio] 15 ratio Normal 7 - 27 ratio AO ADM SS WBC (Bld) [#/Vol] 7.2 103/mcL Normal 4.5 - 10.8 10^3/mcL AO Workflow SS LABORATORYOrdered By: Ismael Garcia on 08-10-2024 Protein [Mass/Vol] 7.1 G/dL Normal 5.7 - 8.2 G/dL AH ADM SS LIPIDon 08-10-2024 Cholesterol [Mass/Vol] 169 mg/dL Normal 0-200 [facility] Comment on above: Result Comment: Chol esterol Reference Interval: Less than 200 Desirable 200-239 Borderline high risk 240 and above High risk Performed By: #### M ALB #### [address] [address] Cholesterol in HDL [Mass/Vol] 36 mg/dL Low 40-60 [facility] Comment on above: Performed By: #### M ALBR #### [address] [address] Cholesterol in LDL [Mass/Vol] 86 mg/dL Normal 0-130 [facility] Comment on above: Performed By: #### M ALBR #### [address] [address] Triglyceride [Mass/Vol] 236 mg/dL High 0-150 [facility] Comment on above: Result Comment: Trig lyceride Reference Interval: Less than 150 Normal 150-199 Borderline high risk 200-499 High risk 500 or higher Very high risk Performed By: #### M ALBR #### [address] [address] Laboratory - Chemistry and C hemistry - challengeOrdered By: Soheila Paris on 08-10-2024 Creatinine (U) [Mass/Vol] 142.3 mg/dL Invalid Interpretation Code AO ADM SS MALBRon 08-10-2024 U Creatinine 142.3 mg/dL Normal [facility] Comment on above: Performed By: #### CHANTAL ROBERTS #### [address] [address] U Microalb 11.3 mg/L Normal [facility] Comment on above: Performed By: #### CHANTAL ROBERTS #### [address] [address] RPCURon 08-10-2024 U Protein 25 mg/dL Normal [facility] Comment on above: Performed By: #### WALTER ROBERTSBR #### [address] [address] U Ratio Prot/Creat 0.2 ratio Normal [facility] Comment on above: Performed By: #### CHANTAL ROBERTS #### [address] [address] SPEon 08-10-2024 Total Protein 7.1 G/dL Normal 5.7-8.2 [facility] Comment on above: Performed By: #### M ALBR #### [address] [place], [place] [address] TSHRon 08-10-2024 TSH Qn 3.33 m[IU]/L Normal 0.36-3.74 [facility] Comment on above: Performed By: #### C MP, LIPID, TSHR, ANEU, ADIFF, [id number], [id number], GFR, CBC ####[address] [place] [place], [place] [address]#### C3C4A, SPE ####[place] [address] US RENALon 07-20-2024 US RENAL ORIGINAL EXAMINATION: ULTRASOUND OF THE KIDNEYS 07/20/2024 2:26 pm COMPARISON: None. HISTORY: ORDERING SYSTEM PROVIDED HISTORY: Reason for Exam: decreasing renal function 3a to 3b and down trending, eval for causes All images are recorded and archived. FINDINGS: Right and left kidneys measure 10.9 x 5.1 x 4.7 cm, and 11.2 x 5.3 x 6.2 cm respectively. Kidneys demonstrate normal cortical echogenicity. No hydronephrosis or intrarenal stones. No focal lesions. Urinary bladder contains 186 mL of urine. Following voiding a 80 mL residual volume is noted. There is no bladder mass or calcification. The prostate is suboptimally visualized. IMPRESSION: 1. Normal ultrasound of the kidneys. 2. 80 mL post void residual urinary bladder volume. Interpreted by: Paul Quintero DO Preliminary Report By: Paul Quintero DO Electronically signed By Paul Quintero DO Dictated Date: 07/20/2024 2:35:50 PM Prelim Date: 07/20/2024 2:37:51 PM Sign Date: 07/20/2024 2:37:51 PM Ordering Provider: NORBERTO SOSA [facility] .GFRon 07-11-2024 GFR 45 ml/min/1.73sqm [facility] Comment on above: Result Comment: GFR Population mean for , Non- Americans Ages 20-29 = 116 mL/min/1.73 sq.m. Ages 30-39 = 107 mL/min/1.73 sq.m. Ages 40-49 = 99 mL/min/1.73 sq.m. Ages 50-59 = 93 mL/min/1.73 sq.m. Ages 60-69 = 85 mL/min/1.73 sq.m. Ages 70+ = 75 mL/min/1.73 sq.m. Chronic Kidney Disease: Less than 60 mL/min/1.73 square meters End Stage Renal Disease: Less than 15 mL/min/1.73 square meters Performed By: #### M ALBR #### [address] [address] GFR Non- 37 ml/min/1.73sqm Normal [facility] Comment on above: Result Comment: GFR Population mean for , Non- Americans Ages 20-29 = 116 mL/min/1.73 sq.m. Ages 30-39 = 107 mL/min/1.73 sq.m. Ages 40-49 = 99 mL/min/1.73 sq.m. Ages 50-59 = 93 mL/min/1.73 sq.m. Ages 60-69 = 85 mL/min/1.73 sq.m. Ages 70+ = 75 mL/min/1.73 sq.m. Chronic Kidney Disease: Less than 60 mL/min/1.73 square meters End Stage Renal Disease: Less than 15 mL/min/1.73 square meters Performed By: #### M ALBR #### [address] [address] BMPon 07-11-2024 BUN/Creatinine Ratio 17 ratio Normal 7-27 [facility] Comment on above: Performed By: #### M ALBR #### [address] [address] Calcium [Mass/Vol] 9.7 mg/dL Normal 8.4-10.2 [facility] Comment on above: Performed By: #### M ALBR #### [address] [address] Chloride [Moles/Vol] 102 mmol/L Normal 98-107 [facility] Comment on above: Performed By: #### M ALBR #### [address] [address] CO2 [Moles/Vol] 29 mmol/L Normal 23-31 [facility] Comment on above: Performed By: #### M ALBR #### [address] [address] Creatinine [Mass/Vol] 1.76 mg/dL High 0.70-1.30 [facility] Comment on above: Result Comment: Test ing performed on Siemens Dimension EXL analyzer using a modified kinetic Michael technique. Performed By: #### M ALBR #### [address] [address] Electrolyte Balance 8.0 mEq/L Normal 4.0-15.0 [facility] Comment on above: Performed By: #### M ALBR #### [address] [address] Glucose [Mass/Vol] 101 mg/dL Normal 83-110 [facility] Comment on above: Performed By: #### M ALBR #### [address] [address] Potassium [Moles/Vol] 5.0 mmol/L Normal 3.5-5.1 [facility] Comment on above: Performed By: #### M ALBR #### [address] [address] Sodium [Moles/Vol] 139 mmol/L Normal 136-145 [facility] Comment on above: Performed By: #### M ALBR #### [address] [address] Urea nitrogen [Mass/Vol] 30 mg/dL High 7-18 [facility] Comment on above: Performed By: #### M ALBR #### [address] [address] LABORATORYOrdered By: SYSTEM SYSTEM on 07-11-2024 Calcium [Mass/Vol] 9.7 mg/dL Normal 8.4 - 10. 2 mg/dL AO ADM SS Chloride [Moles/Vol] 102 mmol/L Normal 98 - 10 7 mmol/L AO ADM SS CO2 [Moles/Vol] 29 mmol/L Normal 23 - 31 mmol/L AO ADM SS Creatinine [Mass/Vol] 1.76 mg/dL High 0.70 - 1.30 mg/dL AO ADM SS Comment on above: Interpretive Data: T esting performed on Siemens Dimension EXL analyzer using a modified kinetic Michael technique. Electrolyte Balance 8.0 mEq/L Normal 4.0 - 15 .0 mEq/L AO ADM SS GFR/1.73 sq M.predicted among blacks MDRD (S/P/Bld) [Vol rate/Area] 45 ml/min/1.73sqm Invalid Interpretation Code AO Chemistry S Comment on above: Interpretive Data: GFR Population mean for , Non- Americans Ages 20-29 = 116 mL/min/1.73 sq.m. Ages 30-39 = 107 mL/min/1.73 sq.m. Ages 40-49 = 99 mL/min/1.73 sq.m. Ages 50-59 = 93 mL/min/1.73 sq.m. Ages 60-69 = 85 mL/min/1.73 sq.m. Ages 70+ = 75 mL/min/1.73 sq.m. Chronic Kidney Disease: Less than 60 mL/min/1.73 square meters End Stage Renal Disease: Less than 15 mL/min/1.73 square meters GFR/1.73 sq M.predicted among non-blacks MDRD (S/P/Bld) [Vol rate/Area] 37 ml/min/1.73sqm Invalid Interpretation Code AO Chemistry S Comment on above: Interpretive Data: GFR Population mean for , Non- Americans Ages 20-29 = 116 mL/min/1.73 sq.m. Ages 30-39 = 107 mL/min/1.73 sq.m. Ages 40-49 = 99 mL/min/1.73 sq.m. Ages 50-59 = 93 mL/min/1.73 sq.m. Ages 60-69 = 85 mL/min/1.73 sq.m. Ages 70+ = 75 mL/min/1.73 sq.m. Chronic Kidney Disease: Less than 60 mL/min/1.73 square meters End Stage Renal Disease: Less than 15 mL/min/1.73 square meters Glucose [Mass/Vol] 101 mg/dL Normal 83 - 110 mg/dL AO ADM SS Potassium [Moles/Vol] 5.0 mmol/L Normal 3.5 - 5.1 mmol/L AO ADM SS Sodium [Moles/Vol] 139 mmol/L Normal 136 - 145 mmol/L AO ADM SS Urea nitrogen [Mass/Vol] 30 mg/dL High 7 - 18 mg/dL AO ADM SS Urea nitrogen/Creatinine [Mass ratio] 17 ratio Normal 7 - 27 ratio AO ADM SS Cardiology Visit Reporton Cardiology Visit Report [facility] [address] [place] [address] OFFICE VISIT Date of Service: 06/09/24 MR#: [id number] Acct: [id number] Name: EDGAR CERON Rep #: [id number] : 1945 Provider: YESSY wright Age/Sex: 79/M Location: [facility] Status: Signed HPI HPI History of Present Illness Details: This is a 79-year-old gentleman who presents to the office today for a cardiovascular hospital follow up visit. He has a past medical history significant for hypertension and coronary artery disease. He has had a two-vessel CABG done in 2004 at [facility]. Subsequently he has had multiple percutaneous interventions as well. According to him, his last coronary angiography was in 2019. According to him, at that point in time he was told that he either had the option of high risk redo CABG or medical management. He opted for medical management. He has been on beta- blockers, calcium channel blockers and ranolazine since. Per him, he gets angina with moderate exertion. This is promptly relieved with sublingual nitroglycerin. He had presented to the emergency room in January with complaints of cough, SOB, and fever. He tested positive for COVID-19. During his hospitalization, his troponins were noted to be elevated. His echocardiogram at that time demonstrated an ejection fraction of 60% , and no abnormal wall motion was noted. He acknowledges intermittent chest discomfort. He denies palpitations or bilateral lower extremity edema. He acknowledges shortness of breath with activity. He denies shortness of breath at rest or orthopnea. He acknowledges lightheadedness. He denies dizziness, near-syncope, or syncope. He acknowledges fatigue. 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 Insurance Required: No Accompanied by: Self Is patient in pain?: No Allergies adhesive tape (plastic tape) Allergy (Verified 06/09/24 11:21) Rash bacitracin (From Neosporin ([id number]-[id number]-mdniu)) Allergy (Verified 06/09/24 11:21) Rash dipyridamole (From Persantine) Allergy (Verified 06/09/24 11:21) Rash neomycin (From Neosporin ([id number]-iwaxe)) Allergy (Verified 06/09/24 11:21) Rash polymyxin B (From Neosporin ([id number]-vnr-atlne)) Allergy (Verified 06/09/24 11:21) Rash trifluoperazine (From Stelazine) Adverse Reaction (Verified 06/09/24 11:21) PT UNSURE OF REACTION Medications ???Medication ???Instructions ???Recorded ???Confirmed ???Type aspirin 81 mg tablet,delayed 81 mg PO DAILY heart health 07/16/21 06/09/24 History release atorvastatin 40 mg tablet 20 mg PO QHS cholesterol 07/16/21 06/09/24 History carboxymethylcellulose sodium 0.5 1 drp EACH EYE TID eye health 07/16/21 06/09/24 History % eye drops in a dropperette cholecalciferol (vitamin D3) 50 50 mcg PO DAILY vitamin 07/16/21 06/09/24 History mcg (2,000 unit) capsule (Vitamin D3) cyanocobalamin (vitamin B-12) 1,000 mcg PO DAILY vitamin 07/16/21 06/09/24 History 1,000 mcg capsule ferrous sulfate 325 mg (65 mg 325 mg PO TID supplement 07/16/21 06/09/24 History iron) tablet ketoconazole 2 % shampoo 1 applic topical Q14D skin 07/16/21 06/09/24 History ketoconazole 2 % topical cream 1 applic topical BID skin 07/16/21 06/09/24 History levothyroxine 112 mcg tablet 112 mcg PO DAILY thyroid 07/16/21 06/09/24 History lisinopril 30 mg tablet 30 mg PO DAILY blood pressure 07/16/21 06/09/24 History metoprolol tartrate 50 mg tablet 50 mg PO BID blood pressure 07/16/21 06/09/24 History nitroglycerin 0.4 mg sublingual 0.4 mg sublingual Q5M PRN Chest 07/16/21 06/09/24 History tablet Pain pantoprazole 40 mg tablet,delayed 40 mg PO DAILY reflux 07/16/21 06/09/24 History release pyridoxine (vitamin B6) 50 mg 50 mg PO DAILY vitamin 07/16/21 06/09/24 History capsule ranolazine 1,000 mg 1,000 mg PO BID chest pain 07/16/21 06/09/24 History tablet,extended release,12 hr sertraline 50 mg tablet 50 mg PO DAILY mental health 07/16/21 06/09/24 History ticagrelor 90 mg tablet 90 mg PO BID anti platelet 07/16/21 06/09/24 History triamcinolone acetonide 0.1 % 1 applic topical BID skin 07/16/21 06/09/24 History topical cream alirocumab 150 mg/mL subcutaneous 150 mg subcut .COMPLEX heart 02/11/24 06/09/24 History pen injector tacrolimus 0.1 % topical ointment 1 applic topical BID skin 02/11/24 06/09/24 History (Protopic) amlodipine 5 mg tablet 5 mg PO DAILY 03/03/24 06/09/24 History gabapentin 100 mg capsule 300 mg PO BID nerve (more content not included)... Normal [facility] BD BONE DENSITY DEXA AXIAL S [facility] 05-16-2024 BD BONE DENSITY DEXA AXIAL [place] ADDENDUM ADDENDUM: 10 year fracture risk is performed using the [employer] FRAX calculator based on patient-reported risk factors. Major osteoporotic fracture: 9.1% Hip fracture: 3.5% Interpreted by: Mars Shipley MD Preliminary Report By: Mars Shipley MD Electronically signed By Mars Shipley MD Dictated Date: 05/16/2024 12:44:14 PM Prelim Date: 05/16/2024 12:45:13 PM Sign Date: 05/16/2024 12:45:13 PM Ordering Provider: NORBERTO SOSA ORIGINAL EXAMINATION: BONE LNANNYZJUNIM36/8/2024 2:17 pm TECHNIQUE: Dual energy bone densitometry lumbar spine and left hip. COMPARISON: None HISTORY: Reason for Exam: Osteoporosis Screening FINDINGS: T Score Left Femoral Neck: -2.0 Left Femoral Neck: 0.651 (g/cm2) T Score Left Hip: -0.2 Left Hip: 1.007 (g/cm2) T Score Lumbar Spine: 1.3 Lumbar Spine: 1.231 (g/cm2) COMMENTS: Baseline FRAX score: Not calculated. The BHOF f/k/a NOF recommends that FDA-approved medical therapies be considered in post-menopausal women and men age >/= 50 years with a: * Hip or vertebral fracture, or * T-score of /= 20% for major osteoporotic fractures or * >/= 3% for hip fractures All treatment decisions require clinical judgement and consideration of individual patient factors, including patient preferences, comorbidities, previous drug use, risk factors not captured in the FRAX registered model (e.g., frailty, falls, vitamin D deficiency, increased bone turnover, interval significant decline in bone density) and possible under- or over-estimation of fracture risk by FRAX. IMPRESSION: Osteopenia. Interpreted by: Mars Shipley MD Preliminary Report By: Mars Shipely MD Electronically signed By Mars Shipley MD Dictated Date: 05/01/2024 2:51:46 PM Prelim Date: 05/01/2024 2:52:56 PM Sign Date: 05/01/2024 2:52:56 PM Ordering Provider: NORBERTO SOSA [facility] .GFRon 04-25-2024 GFR 52 ml/min/1.73sqm [facility] Comment on above: Result Comment: GFR Population mean for , Non- Americans Ages 20-29 = 116 mL/min/1.73 sq.m. Ages 30-39 = 107 mL/min/1.73 sq.m. Ages 40-49 = 99 mL/min/1.73 sq.m. Ages 50-59 = 93 mL/min/1.73 sq.m. Ages 60-69 = 85 mL/min/1.73 sq.m. Ages 70+ = 75 mL/min/1.73 sq.m. Chronic Kidney Disease: Less than 60 mL/min/1.73 square meters End Stage Renal Disease: Less than 15 mL/min/1.73 square meters Performed By: #### R FP, GFR #### [address] [address] GFR Non- 43 ml/min/1.73sqm Normal [facility] Comment on above: Result Comment: GFR Population mean for , Non- Americans Ages 20-29 = 116 mL/min/1.73 sq.m. Ages 30-39 = 107 mL/min/1.73 sq.m. Ages 40-49 = 99 mL/min/1.73 sq.m. Ages 50-59 = 93 mL/min/1.73 sq.m. Ages 60-69 = 85 mL/min/1.73 sq.m. Ages 70+ = 75 mL/min/1.73 sq.m. Chronic Kidney Disease: Less than 60 mL/min/1.73 square meters End Stage Renal Disease: Less than 15 mL/min/1.73 square meters Performed By: #### R FP, GFR #### [address] [address] A1Con 04-25-2024 Glucose [Mass/Vol] 111 mg/dL Normal [facility] Comment on above: Result Comment: Leonor mated Average Glucose calculated by equation ((28.7xA1C)-46.7) Estimated average glucose (eAG) is a calculated value from Hemoglobin A1C and is new accounts representative of the average blood glucose level in the last 2-3 month period. Normal range: less than 114 mg/dL Performed By: #### R FP, GFR #### [address] [address] HbA1c (Bld) [Mass fraction] 5.5 % Normal 4.3-6.4 [facility] Comment on above: Performed By: #### R FP, GFR #### [address] [place] [address] B12on 04-25-2024 Cobalamin (Vitamin B12) [Mass/Vol] 1162 pg/mL High 211-911 [facility] Comment on above: Performed By: #### R FP, GFR #### [address] [address] CMPon 04-25-2024 Albumin Level 3.8 G/dL Normal 3.4-4.8 [facility] Comment on above: Performed By: #### M ALBR #### [place] [id number] Albumin/Globulin [Mass ratio] 1.3 {ratio} Normal 1.1-2.5 [facility] Comment on above: Performed By: #### M ALBR #### [address] [address] ALP [Catalytic activity/Vol] 52 U/L Normal 40-135 [facility] Comment on above: Performed By: #### M ALBR #### [address] [address] ALT [Catalytic activity/Vol] 37 U/L Normal 16-63 [facility] Comment on above: Performed By: #### M ALBR #### [place] [id number] AST [Catalytic activity/Vol] 20 U/L Normal 10-40 [facility] Comment on above: Performed By: #### M ALBR #### [address] [address] Bili Total 0.5 mg/dL Normal 0.2-1.0 [facility] Comment on above: Result Comment: Use of this assay is not recommended for patients undergoing treatment with eltrombopag due to the potential for falsely elevated results. Performed By: #### M ALBR #### [address] [address] BUN/Creatinine Ratio 21 ratio Normal 7-27 [facility] Comment on above: Performed By: #### M ALBR #### [address] [address] Calcium [Mass/Vol] 9.4 mg/dL Normal 8.4-10.2 [facility] Comment on above: Performed By: #### M ALBR #### [address] [address] Chloride [Moles/Vol] 102 mmol/L Normal 98-107 [facility] Comment on above: Performed By: #### M ALBR #### [address] [address] CO2 [Moles/Vol] 27 mmol/L Normal 23-31 [facility] Comment on above: Performed By: #### M ALBR #### [address] [address] Creatinine [Mass/Vol] 1.56 mg/dL High 0.70-1.30 [facility] Comment on above: Result Comment: Test ing performed on Siemens Dimension EXL analyzer using a modified kinetic Michael technique. Performed By: #### M ALBR #### [address] [address] Electrolyte Balance 10.0 mEq/L Normal 4.0-15.0 [facility] Comment on above: Performed By: #### M ALBR #### [address] [address] Globulin 2.9 G/dL Normal [facility] Comment on above: Performed By: #### M ALBR #### [address] [address] Glucose [Mass/Vol] 113 mg/dL High 83-110 [facility] Comment on above: Performed By: #### M ALBR #### [address] [address] Potassium [Moles/Vol] 4.4 mmol/L Normal 3.5-5.1 [facility] Comment on above: Performed By: #### M ALBR #### [place] [id number] Sodium [Moles/Vol] 139 mmol/L Normal 136-145 [facility] Comment on above: Performed By: #### M ALBR #### [place] [address] [place], [place] [address] Total Protein 6.7 G/dL Normal 6.4-8.2 [facility] Comment on above: Performed By: #### M ALBR #### [place] [address] [place], [place] [address] Urea nitrogen [Mass/Vol] 32 mg/dL High 7-18 [facility] Comment on above: Performed By: #### M ALBR #### [place] [address] [place], [place] [address] LABORATORYOrdered By: Mariza Paris on 04-25-2024 Albumin DL <= 20 mg/L (U) [Mass/Vol] 1268 mcg/dL Invalid Interpretation Code AO ADM SS Albumin/Creatinine DL <= 20 mg/L (U) [Mass ratio] 11 mcg/mg Normal 0 - 30 mcg/mg AO ADM SS Creatinine (U) [Mass/Vol] 119.2 mg/dL Normal 39.0 - 259.0 mg/dL AO ADM SS LABORATORYOrdered By: [employer] on 04-25-2024 25-hydroxyvitamin D3 [Mass/Vol] 61.3 ng/mL Invalid Interpretation Code AO ADM SS Comment on above: Interpretive Data: I nterpretive Values Based on Total 25(OH) Vitamin D: Deficient <20 ng/mL Insufficient 20 - <30 ng/mL Sufficient 30-100 ng/mL Albumin BCP dye [Mass/Vol] 3.8 G/dL Normal 3.4 - 4.8 G/dL AO ADM SS Albumin/Globulin [Mass ratio] 1.3 {ratio} Normal 1.1 - 2.5 ratio AO ADM SS ALP [Catalytic activity/Vol] 52 U/L Normal 40 - 135 U/L AO ADM SS ALT With P-5'-P [Catalytic activity/Vol] 37 U/L Normal 16 - 63 U/L AO ADM SS AST With P-5'-P [Catalytic activity/Vol] 20 U/L Normal 10 - 40 U/L AO ADM SS Bilirubin [Mass/Vol] 0.5 mg/dL Normal 0.2 - 1 .0 mg/dL AO ADM SS Comment on above: Interpretive Data: U se of this assay is not recommended for patients undergoing treatment with eltrombopag due to the potential for falsely elevated results. Calcium [Mass/Vol] 9.4 mg/dL Normal 8.4 - 10. 2 mg/dL AO ADM SS Chloride [Moles/Vol] 102 mmol/L Normal 98 - 10 7 mmol/L AO ADM SS CO2 [Moles/Vol] 27 mmol/L Normal 23 - 31 mmol/L AO ADM SS Cobalamin (Vitamin B12) [Mass/Vol] 1162 pg/mL High 211 - 911 pg/mL AH ADM SS Creatinine [Mass/Vol] 1.56 mg/dL High 0.70 - 1.30 mg/dL AO ADM SS Comment on above: Interpretive Data: T esting performed on [employer] Dimension EXL analyzer using a modified kinetic Michael technique. Electrolyte Balance 10.0 mEq/L Normal 4.0 - 15 .0 mEq/L AO ADM SS GFR/1.73 sq M.predicted among blacks MDRD (S/P/Bld) [Vol rate/Area] 52 ml/min/1.73sqm Invalid Interpretation Code AO Chemistry S Comment on above: Interpretive Data: GFR Population mean for , Non- Americans Ages 20-29 = 116 mL/min/1.73 sq.m. Ages 30-39 = 107 mL/min/1.73 sq.m. Ages 40-49 = 99 mL/min/1.73 sq.m. Ages 50-59 = 93 mL/min/1.73 sq.m. Ages 60-69 = 85 mL/min/1.73 sq.m. Ages 70+ = 75 mL/min/1.73 sq.m. Chronic Kidney Disease: Less than 60 mL/min/1.73 square meters End Stage Renal Disease: Less than 15 mL/min/1.73 square meters GFR/1.73 sq M.predicted among non-blacks MDRD (S/P/Bld) [Vol rate/Area] 43 ml/min/1.73sqm Invalid Interpretation Code AO Chemistry S Comment on above: Interpretive Data: GFR Population mean for , Non- Americans Ages 20-29 = 116 mL/min/1.73 sq.m. Ages 30-39 = 107 mL/min/1.73 sq.m. Ages 40-49 = 99 mL/min/1.73 sq.m. Ages 50-59 = 93 mL/min/1.73 sq.m. Ages 60-69 = 85 mL/min/1.73 sq.m. Ages 70+ = 75 mL/min/1.73 sq.m. Chronic Kidney Disease: Less than 60 mL/min/1.73 square meters End Stage Renal Disease: Less than 15 mL/min/1.73 square meters Globulin 2.9 G/dL Invalid Interpretation Code AO ADM SS Glucose [Mass/Vol] 111 mg/dL Invalid Interpretation Code AO Chemistry S Comment on above: Interpretive Data: E stimated average glucose (eAG) is a calculated value from Hemoglobin A1C and is new accounts representative of the average blood glucose level in the last 2-3 month period. Normal range: less than 114 mg/dL Glucose [Mass/Vol] 113 mg/dL High 83 - 110 mg/dL AO ADM SS HbA1c (Bld) [Mass fraction] 5.5 % Normal 4.3 - 6.4 % AO ADM SS Magnesium [Mass/Vol] 2.0 mg/dL Normal 1.8 - 2 .4 mg/dL AO ADM SS Potassium [Moles/Vol] 4.4 mmol/L Normal 3.5 - 5.1 mmol/L AO ADM SS Protein [Mass/Vol] 6.7 G/dL Normal 6.4 - 8.2 G/dL AO ADM SS Sodium [Moles/Vol] 139 mmol/L Normal 136 - 145 mmol/L AO ADM SS Urea nitrogen [Mass/Vol] 32 mg/dL High 7 - 18 mg/dL AO ADM SS Urea nitrogen/Creatinine [Mass ratio] 21 ratio Normal 7 - 27 ratio AO ADM SS MALBRon 04-25-2024 U Creatinine 119.2 mg/dL Normal 39.0-259.0 [facility] Comment on above: Performed By: #### M ALBR #### [place] [address] [place], [place] [address] U Microalb 1268 mcg/dL Normal [facility] Comment on above: Performed By: #### M ALBR #### [place] [address] [place], [place] [address] U Ratio Alb/Cre 11 mcg/mg Normal 0-30 [facility] Comment on above: Performed By: #### M ALBR #### [address] [address] MGon 04-25-2024 Magnesium [Mass/Vol] 2.0 mg/dL Normal 1.8-2.4 [facility] Comment on above: Performed By: #### M ALBR #### [address] [address] VIDHon 04-25-2024 Vit. D 25-Hydroxy 61.3 ng/mL Normal [facility] Comment on above: Result Comment: Inte rpretive Values Based on Total 25(OH) Vitamin D: Deficient <20 ng/mL Insufficient 20 - <30 ng/mL Sufficient 30-100 ng/mL Performed By: #### M ALBR #### [address] [address] Direct LDLon 11-05-2022 LDL Cholesterol Direct 62 mg/dL Normal <100 [facility] ([place]) Comment on above: Result Comment: <100 mg/dL, Optimal 100-129 mg/dL, Near optimal/above optimal 130-159 mg/dL, Borderline high 160-189 mg/dL, High >189 mg/dL, Very high Secondary prevention optimal LDL Cholesterol levels are recommended to be < 70 mg/dL Performed By: [employer] [place] [address] Slag Worker: Thony Corbin III, M.D. CLIA#: [id number] Performed By: #### T SH, BMP, LDLDCT, LIPID, GFR #### [address] [address] #### T4 #### [place] [address] VLDL Cholesterol See Below Normal [facility] ([place]) Comment on above: Result Comment: Test not indicated. Performed By: [facility] [place] [address] Slag Worker: Thony Corbin III, M.D. CLIA#: [id number] Performed By: #### T SH, BMP, LDLDCT, LIPID, GFR #### [facility] [address] [place], [place] [address] #### T4 #### [address] [address] T4on 11-05-2022 T4 [Mass/Vol] 9.2 ug/dL Normal 4.5-10.9 [facility] ([place]) Comment on above: Result Comment: No te - New Reference Range in effect 20 Performed By: #### T SH, BMP, LDLDCT, LIPID, GFR #### [place] [address] [place], [place] [address] #### T4 #### [address] [address] .GFRon 11-04-2022 GFR 62 ml/min/1.73sqm Normal [facility] ([place]) Comment on above: Result Comment: GFR Population mean for , Non- Americans Ages 20-29 = 116 mL/min/1.73 sq.m. Ages 30-39 = 107 mL/min/1.73 sq.m. Ages 40-49 = 99 mL/min/1.73 sq.m. Ages 50-59 = 93 mL/min/1.73 sq.m. Ages 60-69 = 85 mL/min/1.73 sq.m. Ages 70+ = 75 mL/min/1.73 sq.m. Chronic Kidney Disease: Less than 60 mL/min/1.73 square meters End Stage Renal Disease: Less than 15 mL/min/1.73 square meters Performed By: #### T SH, BMP, LDLDCT, LIPID, GFR #### [place] [address] [place], [place] [address] #### T4 #### [address] [address] GFR Non- 51 ml/min/1.73sqm Normal [facility] ([place]) Comment on above: Result Comment: GFR Population mean for , Non- Americans Ages 20-29 = 116 mL/min/1.73 sq.m. Ages 30-39 = 107 mL/min/1.73 sq.m. Ages 40-49 = 99 mL/min/1.73 sq.m. Ages 50-59 = 93 mL/min/1.73 sq.m. Ages 60-69 = 85 mL/min/1.73 sq.m. Ages 70+ = 75 mL/min/1.73 sq.m. Chronic Kidney Disease: Less than 60 mL/min/1.73 square meters End Stage Renal Disease: Less than 15 mL/min/1.73 square meters Performed By: #### T SH, BMP, LDLDCT, LIPID, GFR #### [place] [address] #### T4 #### [address] [address] BMPon 11-04-2022 BUN/Creatinine Ratio 17 ratio Normal 7-27 [facility] ([place]) Comment on above: Performed By: #### T SH, BMP, LDLDCT, LIPID, GFR #### [place] [address] #### T4 #### [address] [address] Calcium [Mass/Vol] 9.5 mg/dL Normal 8.4-10.2 [facility] ([place]) Comment on above: Performed By: #### T SH, BMP, LDLDCT, LIPID, GFR #### [place] [address] #### T4 #### [address] [address] Chloride [Moles/Vol] 103 mmol/L Normal 98-107 [facility] ([place]) Comment on above: Performed By: #### T SH, BMP, LDLDCT, LIPID, GFR #### [address] [address] #### T4 #### [address] [address] CO2 [Moles/Vol] 26 mmol/L Normal 23-31 [facility] ([place]) Comment on above: Performed By: #### T SH, BMP, LDLDCT, LIPID, GFR #### [place] [id number] #### T4 #### [address] [address] Creatinine [Mass/Vol] 1.35 mg/dL High 0.70-1.30 [facility] ([place]) Comment on above: Performed By: #### T SH, BMP, LDLDCT, LIPID, GFR #### [address] [address] #### T4 #### [address] [address] Electrolyte Balance 12.0 mEq/L Normal 4.0-15.0 [facility] ([place]) Comment on above: Performed By: #### T SH, BMP, LDLDCT, LIPID, GFR #### [address] [address] #### T4 #### [address] [address] Glucose [Mass/Vol] 129 mg/dL High 83-110 [facility] ([place]) Comment on above: Performed By: #### T SH, BMP, LDLDCT, LIPID, GFR #### [address] [address] #### T4 #### [address] [address] Potassium [Moles/Vol] 4.4 mmol/L Normal 3.5-5.1 [facility] ([place]) Comment on above: Performed By: #### T SH, BMP, LDLDCT, LIPID, GFR #### [address] [address] #### T4 #### [address] [address] Sodium [Moles/Vol] 141 mmol/L Normal 136-145 [facility] ([place]) Comment on above: Performed By: #### T SH, BMP, LDLDCT, LIPID, GFR #### [address] [address] #### T4 #### [address] [address] Urea nitrogen [Mass/Vol] 23 mg/dL High 7-18 [facility] ([place]) Comment on above: Performed By: #### T SH, BMP, LDLDCT, LIPID, GFR #### [address] [address] #### T4 #### [address] [address] LIPIDon 11-04-2022 Cholesterol [Mass/Vol] 131 mg/dL Normal 0-200 [facility] ([place]) Comment on above: Result Comment: Chol esterol Reference Interval: Less than 200 Desirable 200-239 Borderline high risk 240 and above High risk Performed By: #### T SH, BMP, LDLDCT, LIPID, GFR #### [address] [address] #### T4 #### [address] [address] Cholesterol in HDL [Mass/Vol] 41 mg/dL Normal 40-60 [facility] ([place]) Comment on above: Performed By: #### T SH, BMP, LDLDCT, LIPID, GFR #### [address] [address] #### T4 #### [address] [address] Cholesterol in LDL [Mass/Vol] 52 mg/dL Normal 0-130 [facility] ([place]) Comment on above: Performed By: #### T SH, BMP, LDLDCT, LIPID, GFR #### [address] [address] #### T4 #### [address] [address] Triglyceride [Mass/Vol] 190 mg/dL High 0-150 [facility] ([place]) Comment on above: Result Comment: Trig lyceride Reference Interval: Less than 150 Normal 150-199 Borderline high risk 200-499 High risk 500 or higher Very high risk Performed By: #### T SH, BMP, LDLDCT, LIPID, GFR #### [place] [address] #### T4 #### [address] [address] TSHon 11-04-2022 TSH Qn 0.48 m[IU]/L Normal 0.36-3.74 [facility] ([place]) Comment on above: Performed By: #### T SH, BMP, LDLDCT, LIPID, GFR #### [address] [address] #### T4 #### [address] [address] CNPNon 07-26-2022 [facility] ----- EDGAR CERON ([id number]) 1945 M DEF Date Time Provider Department 07/26/22 KAY GARZA [facility] During your visit today, we recorded the following information about you: Kay Garza PA-C 07/26/2022 8:14 AM Signed Please call and let patient know his urine culture did not show an infection. Would recommend follow-up with PCP or urology for the blood in urine. Ashlee Phoenix MA 07/26/2022 9:06 AM Signed Left VM instructing patient to return call for results. LC Pendleton MA 07/26/2022 12:58 PM Signed Patient returned phone call, notified of results as listed below and instructions given, verbalized understanding. Ashlee Phoenix MA Allergies As of Date: 07/26/2022 Noted Allergy Reaction ADHESIVE TAPE (ROSINS) 01/16/2011 2 - Rash BACITRACIN 07/24/2021 2 - Rash DIPYRIDAMOLE 01/16/2011 2 - Rash POLYMYXIN B 07/24/2021 2 - Rash TRIFLUOPERAZINE 01/16/2011 1 - Mental Status Change Date Reviewed: 07/24/2022 Reviewed by: Aryan Pendlebury, MICA BUILDER.TOEING STOCKINGS - Fully Assessed Reason for Visit: Results [95] Prescriptions as of 07/26/2022 - amLODIPine (NORVASC) 5 mg tablet 5 mg. - aspirin, enteric coated (ASPIRIN, ENTERIC COATED) 81 mg EC tablet 81 mg. - atorvastatin (LIPITOR) 40 mg tablet 20 mg. - carboxymethylcellulose (REFRESH) 0.5 % drop INSTILL 1 DROP IN EACH EYE THREE TIMES A DAY FOR DRY AND/OR IRRITATED EYE(S) - cholecalciferol (VITAMIN D3) 50 mcg (2,000 unit) tablet Take 2 tablets by mouth once daily. - cyanocobalamin (VITAMIN B-12) 1,000 mcg tab Take 1 tablet by mouth once daily. - desonide (TRIDESILON) 0.05 % cream APPLY A SUFFICIENT AMOUNT EXTERNALLY TWICE A DAY TO FOREHEAD RASH FOR UP TO 2 WEEKS IF FLARING - ferrous sulfate 325 mg (65 mg iron) tablet 325 mg. - fluticasone (FLONASE) 50 mcg/actuation nasal spray Use 2 Sprays in each nostril once daily. - ketoconazole (NIZORAL) 2 % cream APPLY A SUFFICIENT AMOUNT EXTERNALLY TWICE A DAY DIRECTED - ketoconazole (NIZORAL) 2 % shampoo SHAMPOO A SUFFICIENT AMOUNT EXTERNALLY EVERY DAY DIRECTED - levothyroxine (SYNTHROID) 112 mcg tablet 0.112 mg. - lisinopril (ZESTRIL,PRINIVIL) 30 mg tablet Take 1 tablet by mouth once daily. - nitroglycerin sublingual (NITROQUICK) 0.4 mg SL tablet 0.4 mg. - pyridoxine, vitamin B6, (VITAMIN B6) 50 mg tablet Take 1 tablet by mouth every morning. - ranolazine SR (RANEXA) 1,000 mg tab ER 12 hr Take 1 tablet by mouth q 12 HR. - sertraline (ZOLOFT) 50 mg tablet Take 1 tablet by mouth once daily. - ticagrelor (BRILINTA) 90 mg tablet Take 1 tablet by mouth twice daily. Problem List As Of Date: 07/26/2022 (None) Encounter Status:Closed by ASHLEE PHOENIX on 07/26/22 Normal [facility] Bacteria Ur Culton 3 Bacteria identified Cx Nom (U) CULTURE, URINE: No growth (<1,000 CFU/ml) Normal [facility] Comment on above: Performed By: #### 6 30-4 #### [facility] CLIA [id number] [address] [place] [address] [place] CNOVon 07-24-2022 CNOV Office Visit (UCWSTR ) ----- EDGAR CERON ([id number]) 1945 M DEF Date Time Provider Department 07/24/22 7:15 PM ARYAN JAIN [facility] During your visit today, we recorded the following information about you: Temperature Pulse Respiration Blood pressure 96.8 degrees 74/minute 18/minute 130/76 Weight 103.2 kg Aryan Jain APRN.TOEING STOCKINGS 07/24/2022 7:36 PM Signed Subjective HPI Nontoxic-appearing male presents urgent care chief complaint hematuria. Duration of symptoms tonight. Associated symptoms dysuria and hematuria. States that past some blood when he urinated this afternoon. Did notice some blood in his underwear. Presents today for evaluation. States feels like blood is resolving. He is not having any dysuria anymore. States overall feels well. Denies any testicular pain swelling scrotal swelling penile discharge or rashes. No urological abnormalities. Denies history of kidney stones. Denies any fever body aches chills productive cough chest pain shortness of breath pleuritic pain hemoptysis nausea vomiting abdominal pain change in bowel habits. Past medical history prescription medication use and allergies reviewed. .Patient presents with: UTI: Hematuria, burning with urination x today No past medical history on file. No past surgical history on file. ALLERGIES Adhesive Tape (Rosins), Bacitracin, Dipyridamole, Polymyxin B, and Trifluoperazine MEDICATIONS amLODIPine (NORVASC) 5 mg tablet 5 mg. aspirin, enteric coated (ASPIRIN, ENTERIC COATED) 81 mg EC tablet 81 mg. atorvastatin (LIPITOR) 40 mg tablet 20 mg. cholecalciferol (VITAMIN D3) 50 mcg (2,000 unit) tablet Take 2 tablets by mouth once daily. cyanocobalamin (VITAMIN B-12) 1,000 mcg tab Take 1 tablet by mouth once daily. desonide (TRIDESILON) 0.05 % cream APPLY A SUFFICIENT AMOUNT EXTERNALLY TWICE A DAY TO FOREHEAD RASH FOR UP TO 2 WEEKS IF FLARING ferrous sulfate 325 mg (65 mg iron) tablet 325 mg. fluticasone (FLONASE) 50 mcg/actuation nasal spray Use 2 Sprays in each nostril once daily. levothyroxine (SYNTHROID) 112 mcg tablet 0.112 mg. lisinopril (ZESTRIL,PRINIVIL) 30 mg tablet Take 1 tablet by mouth once daily. nitroglycerin sublingual (NITROQUICK) 0.4 mg SL tablet 0.4 mg. pyridoxine, vitamin B6, (VITAMIN B6) 50 mg tablet Take 1 tablet by mouth every morning. ranolazine SR (RANEXA) 1,000 mg tab ER 12 hr Take 1 tablet by mouth q 12 HR. sertraline (ZOLOFT) 50 mg tablet Take 1 tablet by mouth once daily. ticagrelor (BRILINTA) 90 mg tablet Take 1 tablet by mouth twice daily. carboxymethylcellulose (REFRESH) 0.5 % drop INSTILL 1 DROP IN EACH EYE THREE TIMES A DAY FOR DRY AND/OR IRRITATED EYE(S) ketoconazole (NIZORAL) 2 % cream APPLY A SUFFICIENT AMOUNT EXTERNALLY TWICE A DAY DIRECTED ketoconazole (NIZORAL) 2 % shampoo SHAMPOO A SUFFICIENT AMOUNT EXTERNALLY EVERY DAY DIRECTED No family history on file. Social History Tobacco Use Smoking status: Former Types: Cigarettes Quit date: 1984 Years since quittin.1 Smokeless tobacco: Never Substance Use Topics Alcohol use: Never Drug use: Never BP 130/76 Pulse 74 Temp 36 ?C (96.8 ?F) Resp 18 Wt 103.2 kg (227 lb 9.6 oz) SpO2 98% Review of Systems Constitutional: Negative for chills, fever and malaise/fatigue. HENT: Negative for congestion, ear discharge, ear pain, sinus pain and sore throat. Eyes: Negative for blurred vision, pain, discharge and redness. Respiratory: Negative for cough, hemoptysis, sputum production, shortness of breath, wheezing and stridor. Cardiovascular: Negative for chest pain. Gastrointestinal: Negative for abdominal pain, diarrhea, nausea and vomiting. Genitourinary: Positive for dysuria and hematuria. Negative for flank pain, frequency and urgency. Musculoskeletal: Negative for myalgias. Skin: Negative for itching and rash. Neurological: Negative for dizziness and headaches. Objective Physical Exam Constitutional: General: He is not in acute distress. Appearance: He is not diaphoretic. HENT: Head: Normocephalic. Mouth/Throat: Mouth: Mucous membranes are moist. Pharynx: Oropharynx is clear. No oropharyngeal exudate or posterior oropharyngeal erythema. Eyes: Conjunctiva/sclera: Conjunctivae normal. Pupils: Pupils are equal, round, and reactive to light. Cardiovascular: Rate and Rhythm: Normal rate and regular rhythm. Heart sounds: Normal heart sounds. Pulmonary: Effort: Pulmonary effort is normal. No tachypnea, accessory muscle usage or respiratory distress. Breath sounds: Normal breath sounds. No stridor. No wheezing, rhonchi or rales. Abdominal: Palpations: Abdomen is soft. Tenderness: There is no abdominal tenderness. There is no right CVA tenderness, left CVA tenderness, guarding or rebound. Genitourinary: Penis: Circumcised. Testes: Right: Tenderness not presen (more content not included)... Normal [facility] UA DIP, URINE (POC)on 2022 BILIRUBIN UA (POCT) Negative Negative [facility] CLARITY UA (POCT) Turbid [facility] COLOR UA (POCT) Yellow [facility] GLUCOSE UA (POCT) Negative Negative mg/dL [facility] HEMOGLOBIN/BLOOD UA (POCT) Large Abnormal Negative [facility] KETONE UA (POCT) Negative Negative mg/dL [facility] LEUKOCYTES UA (POCT) Negative Negative [facility] NITRITE UA (POCT) Negative Negative [facility] PH UA (POCT) 5.5 4.5 - 8.0 [facility] Protein Ql (U) Negative Negative mg/dL [facility] SPECIFIC GRAVITY UA (POCT) 1.015 1.005 - 1.030 [facility] UROBILINOGEN UA (POCT) 0.2 E.U./dL Normal E.U./dL [facility] CNPNon 06-19-2022 JOO Telephone ([facility]) ----- EDGAR CERON ([id number]) 1945 M DEF Date Time Provider Department 06/19/22 [facility] During your visit today, we recorded the following information about you: Nancy West APRN.CHANDRIKA 06/19/2022 8:27 AM Signed Negative for flu and covid please notify thank you Jen Bauman LPN 06/19/2022 9:03 AM Signed Left message for patient with results and recommendations.Jen Bauman LPN Allergies As of Date: 06/19/2022 Noted Allergy Reaction ADHESIVE TAPE (ROSINS) 01/16/2011 2 - Rash BACITRACIN 07/24/2021 2 - Rash DIPYRIDAMOLE 01/16/2011 2 - Rash POLYMYXIN B 07/24/2021 2 - Rash TRIFLUOPERAZINE 01/16/2011 1 - Mental Status Change Date Reviewed: 06/18/2022 Reviewed by: Aryan Jain APRN.TOEING STOCKINGS - Fully Assessed Reason for Visit: Results [95] Prescriptions as of 06/19/2022 - amLODIPine (NORVASC) 5 mg tablet 5 mg. - aspirin, enteric coated (ASPIRIN, ENTERIC COATED) 81 mg EC tablet 81 mg. - atorvastatin (LIPITOR) 40 mg tablet 20 mg. - carboxymethylcellulose (REFRESH) 0.5 % drop INSTILL 1 DROP IN EACH EYE THREE TIMES A DAY FOR DRY AND/OR IRRITATED EYE(S) - cholecalciferol (VITAMIN D3) 50 mcg (2,000 unit) tablet Take 2 tablets by mouth once daily. - cyanocobalamin (VITAMIN B-12) 1,000 mcg tab Take 1 tablet by mouth once daily. - desonide (TRIDESILON) 0.05 % cream APPLY A SUFFICIENT AMOUNT EXTERNALLY TWICE A DAY TO FOREHEAD RASH FOR UP TO 2 WEEKS IF FLARING - ferrous sulfate 325 mg (65 mg iron) tablet 325 mg. - fluticasone (FLONASE) 50 mcg/actuation nasal spray Use 2 Sprays in each nostril once daily. - ketoconazole (NIZORAL) 2 % cream APPLY A SUFFICIENT AMOUNT EXTERNALLY TWICE A DAY DIRECTED - ketoconazole (NIZORAL) 2 % shampoo SHAMPOO A SUFFICIENT AMOUNT EXTERNALLY EVERY DAY DIRECTED - levothyroxine (SYNTHROID) 112 mcg tablet 0.112 mg. - lisinopril (ZESTRIL,PRINIVIL) 30 mg tablet Take 1 tablet by mouth once daily. - nitroglycerin sublingual (NITROQUICK) 0.4 mg SL tablet 0.4 mg. - pyridoxine, vitamin B6, (VITAMIN B6) 50 mg tablet Take 1 tablet by mouth every morning. - ranolazine SR (RANEXA) 1,000 mg tab ER 12 hr Take 1 tablet by mouth q 12 HR. - sertraline (ZOLOFT) 50 mg tablet Take 1 tablet by mouth once daily. - ticagrelor (BRILINTA) 90 mg tablet Take 1 tablet by mouth twice daily. - doxycycline monohydrate 100 mg tablet Take 1 tablet by mouth twice daily for 5 days. Problem List As Of Date: 06/19/2022 (None) Encounter Status:Closed by JEN BAUMAN LPN on 06/19/22 Normal [facility] Influenza virus A and B RNA and SARS-CoV-2 (COVID-19) N gene panel EMI+probe (Resp)on 06-19-2022 FLUAV RNA EMI+probe Ql (Unsp spec) Negative Negative for Influenza A by RT-PCR [facility] FLUBV RNA EMI+probe Ql (Unsp spec) Negative Negative for Influenza B by RT-PCR [facility] SARS-CoV-2 (COVID-19) RNA EMI+probe Ql (Resp) SARS-CoV-2 (Agent of COVID-19) Not Detected by RT-PCR or equivalent method. Not Detected [facility] CNOVon 06-18-2022 CNOV Office Visit ([facility] ) ----- EDGAR CERON ([id number]) 1945 M DEF Date Time Provider Department 06/18/22 4:30 PM LUIS EDUARDO ARYAN [facility] During your visit today, we recorded the following information about you: Temperature Pulse Respiration Blood pressure 98.1 degrees 70/minute 18/minute 136/72 Weight 99.2 kg Aryan Jain APRN.TOEING STOCKINGS 06/18/2022 5:10 PM Signed Subjective HPI Nontoxic-appearing male presents urgent care chief complaint sinus pressure fatigue sore throat. Duration of symptoms 8 days. Associated symptoms sinus pressure fatigue sore throat. States had similar signs symptoms. Her symptoms are progressively improving. Presents today for evaluation of COVID-19 and influenza. Possible sinus infection. States sinus pressure has worsened over the last 24 hours. Has used OTC medications. This is helped some. Denies any fever body aches chills productive cough chest pain shortness of breath pleuritic pain hemoptysis nausea vomiting abdominal pain change in bowel or bladder habits. Past medical history prescription medication use and allergies reviewed. .Patient presents with: Headache: Nasal congestion, fatigue, throat pain, x1 wk. History reviewed. No pertinent past medical history. History reviewed. No pertinent surgical history. ALLERGIES Adhesive Tape (Rosins), Bacitracin, Dipyridamole, Polymyxin B, and Trifluoperazine MEDICATIONS amLODIPine (NORVASC) 5 mg tablet 5 mg. aspirin, enteric coated (ASPIRIN, ENTERIC COATED) 81 mg EC tablet 81 mg. atorvastatin (LIPITOR) 40 mg tablet 20 mg. carboxymethylcellulose (REFRESH) 0.5 % drop INSTILL 1 DROP IN EACH EYE THREE TIMES A DAY FOR DRY AND/OR IRRITATED EYE(S) cholecalciferol (VITAMIN D3) 50 mcg (2,000 unit) tablet Take 2 tablets by mouth once daily. cyanocobalamin (VITAMIN B-12) 1,000 mcg tab Take 1 tablet by mouth once daily. desonide (TRIDESILON) 0.05 % cream APPLY A SUFFICIENT AMOUNT EXTERNALLY TWICE A DAY TO FOREHEAD RASH FOR UP TO 2 WEEKS IF FLARING ferrous sulfate 325 mg (65 mg iron) tablet 325 mg. fluticasone (FLONASE) 50 mcg/actuation nasal spray Use 2 Sprays in each nostril once daily. ketoconazole (NIZORAL) 2 % cream APPLY A SUFFICIENT AMOUNT EXTERNALLY TWICE A DAY DIRECTED ketoconazole (NIZORAL) 2 % shampoo SHAMPOO A SUFFICIENT AMOUNT EXTERNALLY EVERY DAY DIRECTED levothyroxine (SYNTHROID) 112 mcg tablet 0.112 mg. lisinopril (ZESTRIL,PRINIVIL) 30 mg tablet Take 1 tablet by mouth once daily. nitroglycerin sublingual (NITROQUICK) 0.4 mg SL tablet 0.4 mg. pyridoxine, vitamin B6, (VITAMIN B6) 50 mg tablet Take 1 tablet by mouth every morning. ranolazine SR (RANEXA) 1,000 mg tab ER 12 hr Take 1 tablet by mouth q 12 HR. sertraline (ZOLOFT) 50 mg tablet Take 1 tablet by mouth once daily. ticagrelor (BRILINTA) 90 mg tablet Take 1 tablet by mouth twice daily. History reviewed. No pertinent family history. Social History Tobacco Use Smoking status: Former Types: Cigarettes Quit date: 1984 Years since quittin.0 Smokeless tobacco: Never Substance Use Topics Alcohol use: Never Drug use: Never BP 136/72 Pulse 70 Temp 36.7 ?C (98.1 ?F) (Tympanic) Resp 18 Wt 99.2 kg (218 lb 12.8 oz) SpO2 97% Review of Systems Constitutional: Negative for chills, fever and malaise/fatigue. HENT: Positive for congestion, sinus pain and sore throat. Negative for ear discharge and ear pain. Eyes: Negative for blurred vision, pain, discharge and redness. Respiratory: Negative for cough, hemoptysis, sputum production, shortness of breath, wheezing and stridor. Cardiovascular: Negative for chest pain. Gastrointestinal: Negative for abdominal pain, diarrhea, nausea and vomiting. Musculoskeletal: Positive for myalgias. Skin: Negative for itching and rash. Neurological: Negative for dizziness and headaches. Objective Physical Exam Constitutional: General: He is not in acute distress. Appearance: He is not diaphoretic. HENT: Head: Normocephalic. Jaw: No trismus, tenderness, swelling or pain on movement. Right Ear: Tympanic membrane, ear canal and external ear normal. Left Ear: Tympanic membrane, ear canal and external ear normal. Nose: Right Sinus: No maxillary sinus tenderness or frontal sinus tenderness. Left Sinus: Maxillary sinus tenderness and frontal sinus tenderness present. Mouth/Throat: Lips: [place]. Mouth: Mucous membranes are moist. Pharynx: Oropharynx is clear. Uvula midline. No pharyngeal swelling, oropharyngeal exudate, posterior oropharyngeal erythema or uvula swelling. Eyes: Conjunctiva/sclera: Conjunctivae normal. Pupils: Pupils are equal, round, and reactive to light. Cardiovascular: Rate and Rhythm: Normal rate and regular rhythm. Heart sounds: Normal heart sounds. Pulmonary: Effort: Pulmonary effort is normal. No tachypnea, accessory muscle usage or r (more content not included)... Normal [facility] Vital Signs Date Time Vital Sign Value Performing Clinician Jurgeni loretta 07-24-2022 19:12-0500 Body temperature 96.8 [degF] Aryan Jain MICA BUILDER.TOEING STOCKINGS Work Phone: [facility] 07-24-2022 19:12-0500 Body weight 103.24 kg Aryan Jain APRN.TOEING STOCKINGS Work Phone: [facility] 07-24-2022 19:12-0500 Diastolic blood pressure 76 mm[Hg] Aryan Jain MICA BUILDER.TOEING STOCKINGS Work Phone: [facility] 07-24-2022 19:12-0500 Heart rate 74 /min Aryan Jain APRN.TOEING STOCKINGS Work Phone: [facility] 07-24-2022 19:12-0500 Respiratory rate 18 /min Aryan Jain MICA BUILDER.TOEING STOCKINGS Work Phone: [facility] 07-24-2022 19:12-0500 SaO2% (BldA) [Mass fraction] 98 % Aryan Jain MICA BUILDER.TOEING STOCKINGS Work Phone: [facility] 07-24-2022 19:12-0500 Systolic blood pressure 130 mm[Hg] Aryan Jain MICA BUILDER.TOEING STOCKINGS Work Phone: [facility] 06-18-2022 16:42-0500 Body temperature 98.1 [degF] Aryan Jain MICA BUILDER.TOEING STOCKINGS Work Phone: [facility] 06-18-2022 16:42-0500 Body weight 99.25 kg Aryan Tomasbury MICA BUILDER.TOEING STOCKINGS Work Phone: [facility] 06-18-2022 16:42-0500 Diastolic blood pressure 72 mm[Hg] Aryan Marinrayna MICA BUILDER.TOEING STOCKINGS Work Phone: [facility] 06-18-2022 16:42-0500 Heart rate 70 /min Aryan Tomasbury MICA BUILDER.TOEING STOCKINGS Work Phone: [facility] 06-18-2022 16:42-0500 Respiratory rate 18 /min [facility] MICA BUILDER.TOEING STOCKINGS Work Phone: [facility] 06-18-2022 16:42-0500 SaO2% (BldA) [Mass fraction] 97 % Aryan Marinrayna MICA BUILDER.TOEING STOCKINGS Work Phone: [facility] 06-18-2022 16:42-0500 Systolic blood pressure 136 mm[Hg] [facility] MICA BUILDER.TOEING STOCKINGS Work Phone: [facility] Encounters Encounter Date Encounter Type Care Provider Facility Start: 03-29-2025 ambulatory Aryan Palacios Faci lity:[facility] Start: 02-28-2025 End: 02-28-[address] Norberto Sosa DO Work Phone: -Radiology [facility] Start: 02-28-2025 End: 02-28-[address] Aryan Palacios DO -Radiology [facility] Work Phone: Start: 02-28-2025 End: 02-28-2025 ambulatory Aryan Palaicos Facility:[facility] Start: 01-11-2025 End: 01-11-[address] Norberto Sosa DO Work Phone: -Laboratory Start: 01-11-2025 End: 01-11-[address] Aryan Palacios DO -Laboratory Work Phone: Start: 01-11-2025 End: 01-11-2025 ambulatory Norberto Sosa Facility:[facility] Start: 12-25-2024 End: 12-25-2024 ambulatory NORBERTO E SOSA DO Facility:[facility] Start: 12-25-2024 End: 12-25-2024 Patient encounter procedure NORBERTO E SOSA DO [facility] Start: 12-08-2024 End: 12-08-2024 ambulatory NORBERTO E SOSA DO Facility:[facility] Start: 12-08-2024 End: 12-08-2024 Patient encounter procedure NORBERTO E SOSA DO [facility] Start: 09-20-2024 End: 09-20-2024 ambulatory NORBERTO E SOSA DO Facility:[facility] Start: 08-10-2024 End: 08-10-2024 ambulatory NORBERTO Gerald DORANTESSOSA DO Facility:[facility] Start: 08-10-2024 End: 08-10-2024 Patient encounter procedure NORBERTO Gerald SOSA DO [facility] Start: 07-20-2024 End: 07-20-2024 ambulatory NORBERTO E SOSA DO Facility:[facility] Start: 07-20-2024 End: 07-20-2024 Patient encounter procedure NORBERTO E SOSA DO [facility] Start: 07-11-2024 End: 07-11-2024 ambulatory NORBERTO E SOSA DO Facility:[facility] Start: 07-11-2024 End: 07-11-2024 Patient encounter procedure NORBERTO E SOSA DO [facility] Start: 06-09-2024 End: 06-09-2024 ambulatory Norberto Sosa Facility:[facility] Start: 04-28-2024 End: 04-28-2024 ambulatory NORBERTO E SOSA DO Facility:[facility] Start: 04-28-2024 End: 04-28-2024 Patient encounter procedure NORBERTO Gerald SOSA DO [facility] Start: 04-25-2024 End: 04-25-2024 ambulatory NORBERTO SOSA DO Facility:[facility] Start: 04-25-2024 End: 04-25-2024 Patient encounter procedure NORBERTO SOSA DO [facility] Start: 08-02-2023 End: 08-03-2023 ambulatory JODY VELEZ MICA BUILDER-TOEING STOCKINGS Facility:[facility] Start: 08-02-2023 End: 08-02-2023 Patient encounter procedure JODY VELEZ MICA BUILDER-TOEING STOCKINGS [facility] Start: 04-13-2023 End: 06-10-2023 ambulatory NORBERTO SOSA DO Facility:[facility] Start: 04-13-2023 End: 06-10-2023 Physical therapy management NORBERTO SOSA DO [facility] Start: 11-04-2022 End: 11-05-2022 ambulatory NORBERTO SOSA DO Facility:[facility] Start: 07-26-2022 Telephone encounter Kay pinon PA-C Work Phone: [facility] Comment on above: Results Start: 07-24-2022 End: 07-24-2022 ambulatory Facility:[facility] Start: 07-24-2022 End: 07-24-2022 Office outpatient visit 15 minutes Aryan Jain MICA BUILDER.TOEING STOCKINGS Work Phone: [facility] Comment on above: Burning with urinati on (Primary Dx) Start: 07-23-2022 End: 07-23-2022 Patient encounter procedure NORBERTO SOSA DO [facility] Start: 06-19-2022 Telephone encounter Nancy West MICA BUILDER.TOEING STOCKINGS Work Phone: [facility] Comment on above: Results Start: 06-18-2022 End: 06-18-2022 ambulatory Facility:[facility] Start: 06-18-2022 End: 06-18-2022 Office outpatient visit 25 minutes Aryan Jain APRN.TOEING STOCKINGS Work Phone: [facility] Comment on above: Acute maxillary sinu sitis, recurrence not specified (Primary Dx); Suspected COVID-19 virus infection Start: 08-29-2018 End: 08-30-2018 Evaluation and management of inpatient Manish Spears [place] Facility:[facility] Procedures Date Procedure Procedure Detail Performing Clinician Start: 02-28-2025 Plain X-ray of shoulder Dr. Norberto Sosa DO Work Phone: Start: 07-24-2022 Urnls dip stick/tabl et rgnt auto w/o microscopy Aryan Jain APRN.TOEING STOCKINGS Work Phone: Start: 06-18-2022 COVID WITH FLUA+B, ROUTINE Aryan Jain MICA BUILDER.TOEING STOCKINGS Work Phone: Start: 01-17-2015 History of operative procedure on shoulder NORBERTO SOSA DO Start: 06-21-2002 Bone structure of ca rpus (body structure) NORBERTO SOSA DO Comment on above: carpal tunnel- bilat eral Cardiac catheter (physical object) NORBERTO SOSA DO Comment on above: 04/30/2005, 02/24/20 07, 09/07/2011, 10/12/2013, 03/26/2016 08/11/2018- 2 stents placed, 08/30/2018- [facility], 12/15/2018- [place] Coronary artery bypa ss graft operation planned NORBERTO SOSA DO History of coronary artery bypass grafting S/P CABG (coronary artery bypass graft)( Confirmed ) NORBERTO SOSA DO Injury of elbow (disorder) NORBERTO SOSA DO Tonsillectomy NORBERTO SOSA DO Plan of Treatment Date Care Activity Detail Author Start: 06-21-2022 ADVANCE DIRECTIVE DISCUSSION ADVANCE DIRECTIVE DISCUSSION [facility] Start: 06-21-2022 DEPRESSION ASSESSMENT DEPRESSION ASS ESSMENT [facility] Start: 2009 PNEUMOCOCCAL: 65+ (1 - PCV) PNEUMOCOCCAL: 65+ (1 - PCV) [facility] Start: 1994 SHINGRIX VACCINE (1 of 2) SHINGRIX VACCINE (1 of 2) [facility] Start: 1989 DIABETES SCREEN DIABETES SCREEN [facility] Start: 1963 Urine microalbumin profile DTAP,TDAP,TD (1 - Tdap) [facility] Start: 1962 HEPATITIS C SCREENING HEPATITIS C [facility] Bacteria identified in Urine by Culture URINE CULTURE Microbiology Routine Burning with urination Ordered: 07/24/2022 [facility] Work Phone: Comment on above: Ordered: 07/24/2022 Immunizations Immunization Date Immunization Notes Care Provider Fa morales 03-14-2024 influenza virus vacc ine, unspecified formulation NORBERTO SOSA DO [facility] 04-09-2023 influenza, high dose seasonal, preservative-free; Translations: [Fluad Quadrivalent PF ] NORBERTO SOSA DO [facility] 04-09-2023 influenza, injectabl e, quadrivalent, preservative free Dr. Norberto Sosa DO Work Phone: [facility] 04-08-2022 Covid Pfizer Bivalen t Booster Dr. Norberto Sosa DO Work Phone: [facility] 04-08-2022 Influenza High-Dose Quadrivalent Dr. Norberto Sosa DO Work Phone: [facility] 04-08-2022 influenza virus vacc ine, unspecified formulation NORBERTO SOSA DO [facility] 04-03-2021 SARS-CoV-2 mRNA (tozinameran) vaccine NORBERTO SOSA DO [facility] 08-11-2020 COVID-19 original vaccine, age 12+ yr, monovalent ([employer] [employer] [facility] - PURPLE TOP) Kay Garza PA-C Work Phone: [facility] 07-21-2020 SARS-CoV-2 mRNA (tozinameran) vaccine NORBERTO SOSA DO [facility] 06-30-2020 SARS-CoV-2 mRNA (tozinameran) vaccine NORBERTO SOSA DO [facility] 02-19-2020 influenza, injectabl e, quadrivalent, preservative free; Translations: [Fluarix PF Quadrivalent ] NORBERTO SOSA DO [facility] 07-12-2018 zoster vaccine recombinant NORBERTO SOSA DO [facility] 04-26-2018 zoster vaccine recombinant NORBERTO SOSA DO [facility] 03-11-2018 influenza virus vacc ine, unspecified formulation NORBERTO SOSA DO [facility] 03-11-2018 influenza, injectabl e, quadrivalent, preservative free Dr. Norberto Sosa DO Work Phone: [facility] 04-23-2017 tetanus toxoid, redu omayra diphtheria toxoid, and acellular pertussis vaccine, adsorbed NORBERTO SOSA DO [facility] 03-09-2016 influenza virus vacc ine, unspecified formulation NORBERTO SOSA DO [facility] 03-09-2016 Seasonal, quadrivale nt, recombinant, injectable influenza vaccine, preservative free Dr. Norberto Sosa DO Work Phone: [facility] 10-25-2015 pneumococcal conjuga te vaccine, 13 valent NORBERTO SOSA DO [facility] 04-21-2015 influenza virus vacc ine, unspecified formulation NORBERTO SOSA DO [facility] 04-21-2015 influenza, injectabl e, quadrivalent, preservative free Dr. Norberto Sosa DO Work Phone: [facility] 09-06-2014 pneumococcal conjuga te vaccine, 13 valent NORBERTO SOSA DO [facility] 03-21-2014 influenza virus vacc ine, unspecified formulation NORBERTO SOSA DO [facility] 03-21-2014 influenza, injectabl e, quadrivalent, preservative free Dr. Norberto Sosa DO Work Phone: [facility] 08-22-2012 pneumococcal polysaccharide vaccine, 23 valent NORBERTO SOSA DO [facility] 08-22-2012 tetanus toxoid, redu omayra diphtheria toxoid, and acellular pertussis vaccine, adsorbed NORBERTO SOSA DO [facility] 04-21-2012 influenza virus vacc ine, unspecified formulation NORBERTO SOSA DO [facility] 04-21-2012 Seasonal, quadrivale nt, recombinant, injectable influenza vaccine, preservative free Dr. Norberto Sosa DO Work Phone: [facility] 06-24-2009 novel influenza-H1N1 -09, preservative-free, injectable Dr. Norberto Sosa DO Work Phone: [facility] Payers Date Payer Category Payer Unknown [id number] 2024 Unknown [id number] 2024 Private Health Insurance [id number] 2024 Self-pay 2022 Medicare [id number] 2021 Medicare [id number] 2021 Medicare [id number] 2016 Medicare [id number] 1945 Unknown [id number] 2.16.8 [id number] 1945 Unknown [id number] 2.16.8 [id number] 1945 Unknown [id number] 2.16.8 40.1.905301.3.579.2.62 1945 Unknown [id number] 2.16. [id number]. 1945 Unknown [id number] 2.16. [id number] 1945 Unknown [id number] 2.16.8 [id number] 1945 Unknown [id number] 2.16.8 40.1.194177.3.579.2.627 1945 Unknown [id number] 2.16.8 40.1.083294.3.579.2.627 1945 Unknown [id number] 2.16.8 [id number] 1945 Unknown [id number] 2.16.8 [id number] 1945 Unknown [id number] 2.16.8 [id number] Unknown [id number] 2.16.8 40.1.711136.3.579.2.273 Unknown [id number] 2.16.8 [id number] Unknown [id number] 2.16.8 40.1.694349.3.579.2.462 Unknown [id number] 2.16.8 [id number] Unknown [id number] 2.16.8 [id number] Social History Date Type Detail Facility Start: 06-18-2022 End: 02-11-2024 Tobacco smoking status [facility] Ex-smoker [facility] End: 06-21-1984 History of tobacco use Current smoker [facility] End: 06-21-1984 History of tobacco use Cigarette Smoker [facility] Start: 06-18-2022 Tobacco use and exposure Smoke less tobacco non-user [facility] Start: 06-18-2022 End: 07-24-2022 Alcohol intake Lifetime non-drinker (finding) [facility] Start: 1945 Sex Assigned At Male C [facility] Sexual Orientation [facility] Start: 12-14-2018 Sex Male (finding) [facility] Sex Male [facility] Clinical Notes 06-18-2022 to 02-28-2025 Note Date & Type Note Facility 02-28-2025 Radiology Diagnostic study note [facility] Imaging Services [address] [place] [id number] Shoulder min 2 Views MR#: [id number] Acct: [id number] Name: EDGAR CERON Rep #: [id number] : 1945 M 79 From: Jose Lemus MD PCP: Dr. Norberto Sosa, Status: REG CLI Study:Shoulder min 2 Views Date of Exam: 02/28/25 Exam# [id number] Ordering Dr: Aryan Lagos DO PROCEDURE: SHOULDER MIN 2 VIEWS 02/28/2025 REASON FOR EXAM: ARTHRITIS TECHNIQUE: Procedure Code: RADSH Modality: DX Procedure: SHOULDER MIN 2 VIEWS Laterality: Right COMPARISON: None. RAD/Shoulder min 2 Views IMPRESSION: Moderately severe right acromioclavicular joint degenerative changes are seen, with marked joint narrowing at distal clavicular inferior osteophytosis. Postsurgical changes of the right humeral head seen, with metallic anchor in place. 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 Wybr-hn-obintbib right glenohumeral joint degenerative changes are seen, with partial joint narrowing seen. No acute fracture or dislocation is evident. Reading Location: [place] [address] CC: Dr. Aryan Palacios DO; Dr. Norberto Sosa DO ~ Club Car Attendant: Signed [facility] 07-20-2024 Note Exam Date Time Procedure Performing Provider Status 07/20/24 2:23 PM US Renal PAUL QUINTERO DO; Auth (Verified) [id number] ORIGINAL EXAMINATION: ULTRASOUND OF THE KIDNEYS 07/20/2024 2:26 pm COMPARISON: None. HISTORY: ORDERING SYSTEM PROVIDED HISTORY: Reason for Exam: decreasing renal function 3a to 3b and down trending, eval for causes All images are recorded and archived. FINDINGS: Right and left kidneys measure 10.9 x 5.1 x 4.7 cm, and 11.2 x 5.3 x 6.2 cm respectively. Kidneys demonstrate normal cortical echogenicity. No hydronephrosis or intrarenal stones. No focal lesions. Urinary bladder contains 186 mL of urine. Following voiding a 80 mL residual volume is noted. There is no bladder mass or calcification. The prostate is suboptimally visualized. IMPRESSION: 1. Normal ultrasound of the kidneys. 2. 80 mL post void residual urinary bladder volume. Interpreted by: Paul Quintero DO Preliminary Report By: Paul Quintero DO Electronically signed By Paul Quintero DO Dictated Date: 07/20/2024 2:35:50 PM Prelim Date: 07/20/2024 2:37:51 PM Sign Date: 07/20/2024 2:37:51 PM Ordering Provider: NORBERTO SOSA [facility]02-12-2024 Note* Exam Date Time Procedure Performing Provider Status 08/02/23 1:40 PM VL Carotid US/Dopple r Complete - CV Auth (Verified) [facility] 02-05-2023 Miscellaneous Notes* Telephone Encounter - Ashlee Phoenix MA - 07/26/2022 12:57 PM EST Patient returned phone call, notified of results as listed below and instructions given, verbalizedunderstanding. Ashlee Phoenix MA * Telephone Encounter - Ashlee Phoenix MA - 07/26/2022 9:05 AM EST Left VM instructing patient to return call for results. Ashlee Phoenix MA * Telephone Encounter - Kay Garza PA-C - 07/26/2022 8:12 AM EST Please call and let patient know his urine culture did not show an infection. Would recommend follow-up with PCP or urology for the blood in urine. documented [facility] NoteHNO ID: [id number] Author: Aryan Jain APRN.[employer] Service: ? Author Type: Nurse Practitioner Type: Progress Notes Filed: 07/24/2022 7:36 PM Note Text: Subjective HPI Nontoxic-appearing male presents urgent care chief complaint hematuria. Duration of symptoms tonight. Associated symptoms dysuria and hematuria. States that past some blood when he urinated this afternoon. Did notice some blood in his underwear. Presents today for evaluation. States feels like blood is resolving. He is not having any dysuria anymore. States overall feels well. Denies any testicular pain swelling scrotal swelling penile discharge or rashes. No urological abnormalities. Denies history of kidney stones. Denies any fever body aches chills productive cough chest pain shortness of breath pleuritic pain hemoptysis nausea vomiting abdominal pain change in bowel habits. Past medical history prescription medication use and allergies reviewed. .Patient presents with: UTI: Hematuria, burning with urination x today No past medical history on file. No past surgical history on file. ALLERGIES Adhesive Tape (Rosins), Bacitracin, Dipyridamole, Polymyxin B, and Trifluoperazine MEDICATIONS amLODIPine (NORVASC) 5 mg tablet 5 mg. aspirin, enteric coated (ASPIRIN, ENTERIC COATED) 81 mg EC tablet 81 mg. atorvastatin (LIPITOR) 40 mg tablet 20 mg. cholecalciferol (VITAMIN D3) 50 mcg (2,000 unit) tablet Take 2 tablets by mouth once daily. cyanocobalamin (VITAMIN B-12) 1,000 mcg tab Take 1 tablet by mouth once daily. desonide (TRIDESILON) 0.05 % cream APPLY A SUFFICIENT AMOUNT EXTERNALLY TWICE A DAY TO FOREHEAD RASH FOR UP TO 2 WEEKS IF FLARING ferrous sulfate 325 mg (65 mg iron) tablet 325 mg. fluticasone (FLONASE) 50 mcg/actuation nasal spray Use 2 Sprays in each nostril once daily. levothyroxine (SYNTHROID) 112 mcg tablet 0.112 mg. lisinopril (ZESTRIL,PRINIVIL) 30 mg tablet Take 1 tablet by mouth once daily. nitroglycerin sublingual (NITROQUICK) 0.4 mg SL tablet 0.4 mg. pyridoxine, vitamin B6, (VITAMIN B6) 50 mg tablet Take 1 tablet by mouth every morning. ranolazine SR (RANEXA) 1,000 mg tab ER 12 hr Take 1 tablet by mouth q 12 HR. sertraline (ZOLOFT) 50 mg tablet Take 1 tablet by mouth once daily. ticagrelor (BRILINTA) 90 mg tablet Take 1 tablet by mouth twice daily. carboxymethylcellulose (REFRESH) 0.5 % drop INSTILL 1 DROP IN EACH EYE THREE TIMES A DAY FOR DRY AND/OR IRRITATED EYE(S) ketoconazole (NIZORAL) 2 % cream APPLY A SUFFICIENT AMOUNT EXTERNALLY TWICE A DAY DIRECTED ketoconazole (NIZORAL) 2 % shampoo SHAMPOO A SUFFICIENT AMOUNT EXTERNALLY EVERY DAY DIRECTED No family history on file. Social History Tobacco Use Smoking status: Former Types: Cigarettes Quit date: 1984 Years since quittin.1 Smokeless tobacco: Never Substance Use Topics Alcohol use: Never Drug use: Never BP 130/76 Pulse 74 Temp 36 ?C (96.8 ?F) Resp 18 Wt 103.2 kg (227 lb 9.6 oz) SpO2 98% Review of Systems Constitutional: Negative for chills, fever and malaise/fatigue. HENT: Negative for congestion, ear discharge, ear pain, sinus pain and sore throat. Eyes: Negative for blurred vision, pain, discharge and redness. Respiratory: Negative for cough, hemoptysis, sputum production, shortness of breath, wheezing and stridor. Cardiovascular: Negative for chest pain. Gastrointestinal: Negative for abdominal pain, diarrhea, nausea and vomiting. Genitourinary: Positive for dysuria and hematuria. Negative for flank pain, frequency and urgency. Musculoskeletal: Negative for myalgias. Skin: Negative for itching and rash. Neurological: Negative for dizziness and headaches. Objective Physical Exam Constitutional: General: He is not in acute distress. Appearance: He is not diaphoretic. HENT: Head: Normocephalic. Mouth/Throat: Mouth: Mucous membranes are moist. Pharynx: Oropharynx is clear. No oropharyngeal exudate or posterior oropharyngeal erythema. Eyes: Conjunctiva/sclera: Conjunctivae normal. Pupils: Pupils are equal, round, and reactive to light. Cardiovascular: Rate and Rhythm: Normal rate and regular rhythm. Heart sounds: Normal heart sounds. Pulmonary: Effort: Pulmonary effort is normal. No tachypnea, accessory muscle usage or respiratory distress. Breath sounds: Normal breath sounds. No stridor. No wheezing, rhonchi or rales. Abdominal: Palpations: Abdomen is soft. Tenderness: There is no abdominal tenderness. There is no right CVA tenderness, left CVA tenderness, guarding or rebound. Genitourinary: Penis: Circumcised. Testes: Right: Tenderness not present. Left: Tenderness not present. Epididymis: Right: No tenderness. Left: No tenderness. Musculoskeletal: Cervical back: Normal range of motion and neck supple. No rigidity or tenderness. Lymphadenopathy: Cervical: No cervical adenopathy. Skin: General: Skin is warm and d (more content not included)...[facility]02-03-2023 History of Present illness Narrative* Aryan Jain APRN.[facility] - 07/24/2022 7:16 PM EST Subjective HPI Nontoxic-appearing male presents urgent care chief complaint hematuria. Duration of symptoms tonight. Associated symptoms dysuria and hematuria. States that past some blood when he urinated this afternoon. Did notice some blood in his underwear. Presents today for evaluation. States feels like blood is resolving. He is not having any dysuria anymore. States overall feels well. Denies any testicular pain swelling scrotal swelling penile discharge or rashes. No urological abnormalities. Denies history of kidney stones. Denies any fever body aches chills productive cough chest pain shortness of breath pleuritic pain hemoptysis nausea vomiting abdominal pain change in bowel habits. Past medical history prescription medication use and allergies reviewed. .Patient presents with: UTI: Hematuria, burning with urination x today No past medical history on file. No past surgical history on file. ALLERGIES Adhesive Tape (Rosins), Bacitracin, Dipyridamole, Polymyxin B, and Trifluoperazine MEDICATIONS amLODIPine (NORVASC) 5 mg tablet 5 mg. aspirin, enteric coated (ASPIRIN, ENTERIC COATED) 81 mg EC tablet 81 mg. atorvastatin (LIPITOR) 40 mg tablet 20 mg. cholecalciferol (VITAMIN D3) 50 mcg (2,000 unit) tablet Take 2 tablets by mouth once daily. cyanocobalamin (VITAMIN B-12) 1,000 mcg tab Take 1 tablet by mouth once daily. desonide (TRIDESILON) 0.05 % cream APPLY A SUFFICIENT AMOUNT EXTERNALLY TWICE A DAY TO FOREHEAD RASH FOR UP TO 2 WEEKS IF FLARING ferrous sulfate 325 mg (65 mg iron) tablet 325 mg. fluticasone (FLONASE) 50 mcg/actuation nasal spray Use 2 Sprays in each nostril once daily. levothyroxine (SYNTHROID) 112 mcg tablet 0.112 mg. lisinopril (ZESTRIL,PRINIVIL) 30 mg tablet Take 1 tablet by mouth once daily. nitroglycerin sublingual (NITROQUICK) 0.4 mg SL tablet 0.4 mg. pyridoxine, vitamin B6, (VITAMIN B6) 50 mg tablet Take 1 tablet by mouth every morning. ranolazine SR (RANEXA) 1,000 mg tab ER 12 hr Take 1 tablet by mouth q 12 HR. sertraline (ZOLOFT) 50 mg tablet Take 1 tablet by mouth once daily. ticagrelor (BRILINTA) 90 mg tablet Take 1 tablet by mouth twice daily. carboxymethylcellulose (REFRESH) 0.5 % drop INSTILL 1 DROP IN EACH EYE THREE TIMES A DAY FOR DRY AND/OR IRRITATED EYE(S) ketoconazole (NIZORAL) 2 % cream APPLY A SUFFICIENT AMOUNT EXTERNALLY TWICE A DAY DIRECTED ketoconazole (NIZORAL) 2 % shampoo SHAMPOO A SUFFICIENT AMOUNT EXTERNALLY EVERY DAY DIRECTED No family history on file. Social History Tobacco Use Smoking status: Former Types: Cigarettes Quit date: 1984 Years since quittin.1 Smokeless tobacco: Never Substance Use Topics Alcohol use: Never Drug use: Never BP 130/76 Pulse 74 Temp 36 C (96.8 F) Resp 18 Wt 103.2 kg (227 lb 9.6 oz) SpO2 98% Review of Systems Constitutional: Negative for chills, fever and malaise/fatigue. HENT: Negative for congestion, ear discharge, ear pain, sinus pain and sore throat. Eyes: Negative for blurred vision, pain, discharge and redness. Respiratory: Negative for cough, hemoptysis, sputum production, shortness of breath, wheezing and stridor. Cardiovascular: Negative for chest pain. Gastrointestinal: Negative for abdominal pain, diarrhea, nausea and vomiting. Genitourinary: Positive for dysuria and hematuria. Negative for flank pain, frequency and urgency. Musculoskeletal: Negative for myalgias. Skin: Negative for itching and rash. Neurological: Negative for dizziness and headaches. Objective Physical Exam Constitutional: General: He is not in acute distress. Appearance: He is not diaphoretic. HENT: Head: Normocephalic. Mouth/Throat: Mouth: Mucous membranes are moist. Pharynx: Oropharynx is clear. No oropharyngeal exudate or posterior oropharyngeal erythema. Eyes: Conjunctiva/sclera: Conjunctivae normal. Pupils: Pupils are equal, round, and reactive to light. Cardiovascular: Rate and Rhythm: Normal rate and regular rhythm. Heart sounds: Normal heart sounds. Pulmonary: Effort: Pulmonary effort is normal. No tachypnea, accessory muscle usage or respiratory distress. Breath sounds: Normal breath sounds. No stridor. No wheezing, rhonchi or rales. Abdominal: Palpations: Abdomen is soft. Tenderness: There is no abdominal tenderness. There is no right CVA tenderness, left CVA tenderness, guarding or rebound. Genitourinary: Penis: Circumcised. Testes: Right: Tenderness not present. Left: Tenderness not present. Epididymis: Right: No tenderness. Left: No tenderness. Musculoskeletal: Cervical back: Normal range of motion and neck supple. No rigidity or tenderness. Lymphadenopathy: Cervical: No cervical adenopathy. Skin: General: Skin is warm and dry. Neurological: Mental Status: He is alert and oriented to person, place, and time. ASSESSMENT/PLAN: 1. Burning with urination - ICD9: 788.1, ICD10: R30.0 acute - UA DIP, URINE (POC) - URINE CULTURE No antibiotics at today's visit. Large amount of blood noted on urine dip. Differential diagnosis discussed with patient. Red flags discussed. Follow-up with PCP/urology 1 to 2 days reevaluation. Patient was educated on supportive therapies. Patient was instructed to immediately proceed to emergency room for any new, worsening, or symptoms lasting longer than anticipated. The patient's clinical presentation is otherwise unremarkable at this time. Based on exam and clinical finding, the patient is stable for discharge. Plan of care was discussed with patient. Patient verbalizes understanding and agrees to plan of care. This note was generated using Groov[employer] software. It may contain errors in wo rding, punctuation, or spelling. Aryan Jain APRN.CHANDRIKA documented in this encounterW[facility]12-30-2022 Miscellaneous Notes* Telephone Encounter - Jen Bauman LPN - 06/19/2022 9:02 AM EST Left message for patient with results and recommendations.Jen Bauman LPN * Telephone Encounter - Nancy West APRN.CNP - 06/19/2022 8:27 AM EST Negative for flu and covid please notify thank you documented in this encounterW[facility]12-[facility] Influenza virus A and B RNA and SARS-CoV-2 (COVID-19) N gene panel EMI+probe (Resp)COVID 19 RESULT: SARS-CoV-2 (Agent of COVID-19) Not Detected by RT-PCR or equivalent method. haily [id number]_[employer] (THIERNO)_EUA This test was developed and its performance characteristics determined by [facility] [place]. This test has been authorized by FDA under an Emergency Use Authorization (EUA). This test has been validated in accordance with the FDA's Guidance Document Policy for DiagnosticsTesting in Laboratories Certified to Perform High Complexity Testing under CLIA prior to Emergency use Authorization for Coronavirus Disease 2019 during the Public Health Emergency" issued on August 19, 2019. Test performed by [facility], [facility] [place], [address] [place] [address]. INFLUENZA A PCR: Negative for Influenza A by RT-PCR INFLUENZA B PCR: Negative for Influenza B by [facility]-PCR[facility] on above: Performed By: #### [id number] #### [facility] CLIA [id number] [address] [place] [address] OF [id number] NoteHNO ID: [id number] Author: Aryan Jain APRN.[employer] Service: ? Author Type: Nurse Practitioner Type: Progress Notes Filed: 06/18/2022 5:10 PM Note Text: Subjective HPI Nontoxic-appearing male presents urgent care chief complaint sinus pressure fatigue sore throat. Duration of symptoms 8 days. Associated symptoms sinus pressure fatigue sore throat. States had similar signs symptoms. Her symptoms are progressively improving. Presents today for evaluation of COVID-19 and influenza. Possible sinus infection. States sinus pressure has worsened over the last 24 hours. Has used OTC medications. This is helped some. Denies any fever body aches chills productive cough chest pain shortness of breath pleuritic pain hemoptysis nausea vomiting abdominal pain change in bowel or bladder habits. Past medical history prescription medication use and allergies reviewed. .Patient presents with: Headache: Nasal congestion, fatigue, throat pain, x1 wk. History reviewed. No pertinent past medical history. History reviewed. No pertinent surgical history. ALLERGIES Adhesive Tape (Rosins), Bacitracin, Dipyridamole, Polymyxin B, and Trifluoperazine MEDICATIONS amLODIPine (NORVASC) 5 mg tablet 5 mg. aspirin, enteric coated (ASPIRIN, ENTERIC COATED) 81 mg EC tablet 81 mg. atorvastatin (LIPITOR) 40 mg tablet 20 mg. carboxymethylcellulose (REFRESH) 0.5 % drop INSTILL 1 DROP IN EACH EYE THREE TIMES A DAY FOR DRY AND/OR IRRITATED EYE(S) cholecalciferol (VITAMIN D3) 50 mcg (2,000 unit) tablet Take 2 tablets by mouth once daily. cyanocobalamin (VITAMIN B-12) 1,000 mcg tab Take 1 tablet by mouth once daily. desonide (TRIDESILON) 0.05 % cream APPLY A SUFFICIENT AMOUNT EXTERNALLY TWICE A DAY TO FOREHEAD RASH FOR UP TO 2 WEEKS IF FLARING ferrous sulfate 325 mg (65 mg iron) tablet 325 mg. fluticasone (FLONASE) 50 mcg/actuation nasal spray Use 2 Sprays in each nostril once daily. ketoconazole (NIZORAL) 2 % cream APPLY A SUFFICIENT AMOUNT EXTERNALLY TWICE A DAY DIRECTED ketoconazole (NIZORAL) 2 % shampoo SHAMPOO A SUFFICIENT AMOUNT EXTERNALLY EVERY DAY DIRECTED levothyroxine (SYNTHROID) 112 mcg tablet 0.112 mg. lisinopril (ZESTRIL,PRINIVIL) 30 mg tablet Take 1 tablet by mouth once daily. nitroglycerin sublingual (NITROQUICK) 0.4 mg SL tablet 0.4 mg. pyridoxine, vitamin B6, (VITAMIN B6) 50 mg tablet Take 1 tablet by mouth every morning. ranolazine SR (RANEXA) 1,000 mg tab ER 12 hr Take 1 tablet by mouth q 12 HR. sertraline (ZOLOFT) 50 mg tablet Take 1 tablet by mouth once daily. ticagrelor (BRILINTA) 90 mg tablet Take 1 tablet by mouth twice daily. History reviewed. No pertinent family history. Social History Tobacco Use Smoking status: Former Types: Cigarettes Quit date: 1984 Years since quittin.0 Smokeless tobacco: Never Substance Use Topics Alcohol use: Never Drug use: Never BP 136/72 Pulse 70 Temp 36.7 ?C (98.1 ?F) (Tympanic) Resp 18 Wt 99.2 kg (218 lb 12.8 oz) SpO2 97% Review of Systems Constitutional: Negative for chills, fever and malaise/fatigue. HENT: Positive for congestion, sinus pain and sore throat. Negative for ear discharge and ear pain. Eyes: Negative for blurred vision, pain, discharge and redness. Respiratory: Negative for cough, hemoptysis, sputum production, shortness of breath, wheezing and stridor. Cardiovascular: Negative for chest pain. Gastrointestinal: Negative for abdominal pain, diarrhea, nausea and vomiting. Musculoskeletal: Positive for myalgias. Skin: Negative for itching and rash. Neurological: Negative for dizziness and headaches. Objective Physical Exam Constitutional: General: He is not in acute distress. Appearance: He is not diaphoretic. HENT: Head: Normocephalic. Jaw: No trismus, tenderness, swelling or pain on movement. Right Ear: Tympanic membrane, ear canal and external ear normal. Left Ear: Tympanic membrane, ear canal and external ear normal. Nose: Right Sinus: No maxillary sinus tenderness or frontal sinus tenderness. Left Sinus: Maxillary sinus tenderness and frontal sinus tenderness present. Mouth/Throat: Lips: [place]. Mouth: Mucous membranes are moist. Pharynx: Oropharynx is clear. Uvula midline. No pharyngeal swelling, oropharyngeal exudate, posterior oropharyngeal erythema or uvula swelling. Eyes: Conjunctiva/sclera: Conjunctivae normal. Pupils: Pupils are equal, round, and reactive to light. Cardiovascular: Rate and Rhythm: Normal rate and regular rhythm. Heart sounds: Normal heart sounds. Pulmonary: Effort: Pulmonary effort is normal. No tachypnea, accessory muscle usage or respiratory distress. Breath sounds: Normal breath sounds. No stridor. No wheezing, rhonchi or rales. Abdominal: General: There is no distension. Palpations: Abdomen is soft. Tenderness: There is no abdominal tenderness. There is no guarding or rebound. Musculoskeletal: Cerv (more content not included)...[facility]12-29-2022 Instructions* Patient Instructions* Aryan Jain APRN.[employer]EING [employer]OCKINGS - 06/18/2022 5:07 PM EST How to Manage Common Symptoms Associated with COVID for Adults Fever- Fever is a temperature over 100.4 F and can occur when the body is fighting an infection. Tohelp treat a fever: Drink plenty of fluids and stay well hydrated. Eat small amounts of easy to digest food. Rest. Your body needs rest to recover, but getting up and moving around the house frequently is a good idea. You should try to continue doing your normal daily activities (bathing, toileting, grooming, cooking), though you will probably feel tired, and need to rest often. Avoid any heavy activity or exercise, as this will increase your body temperature. Dress in light clothing and stay covered in a light sheet. Keep the room temperature cool. Take a slightly warm (not cold or cool) bath, or apply damp washcloths to the forehead and wrists. Cough- Cough is a common symptom associated with COVID and can be bothersome. To help treat a cough: Stay well hydrated. Try warm water or tea with lemon and/or honey to help soothe the cough. Use a humidifier to add moisture to the air. Try a product with menthol, like a cough drop or a rub for your chest such as Vicks, which can helpreduce cough. Try cough drops. Avoid smoking and other strong odors or perfumes. Try breathing exercises to keep your lungs open and clear. Take a big deep breath through your noseand hold for 5 seconds before slowly releasing. Repeat frequently, while you are awake. Congestion- Runny nose or nasal congestion can occur with COVID. Treatment can help relieve symptoms: Try OTC nasal saline spray, or nasal saline rinse to relieve mucus congestion. Nasal strips can help keep nasal passages open, to increase airflow. Elevating your head with an extra pillow in bed can help reduce congestion. Using a humidifier can increase moisture in the air, and make breathing easier. Sore Throat- Another common symptom with COVID, can be managed at home by: Stay well hydrated. Gargle with salt water - mix teaspoon salt with 1 cup of warm water and gargle. This helps to loosen mucus in the back of the throat and may reduce discomfort. Try ice chips, popsicles or lozenges to soothe the throat. Nausea/Vomiting/Diarrhea- These are common symptoms, and staying hydrated is most important. If you are nauseous or vomiting, start with small sips of water every 10-15 minutes and increase astolerated. You can try sucking an ice cube too. If tolerating, you can try pedialyte or Gatorade, or flat sprite or jammie-liz. Start slowly and increase as you are able to. Instead of meals, try smaller, more frequent snacks. Try eating bland foods like crackers, toast, rice, and applesauce. Avoid spicy, greasy or fried foods and dairy containing foods. Even if you aren't feeling hungry due to lack of smell or taste, it is important to try to take in some food when you are able. After drinking and eating, rest in an upright position for up to two hours as needed to help decrease nauseous feelings. Try closing your eyes, avoid moving and watching TV. Avoid strong odors that can make you feel more nauseated. When to seek emergency medical attention Look for emergency warning signs for COVID-19. If having any of these symptoms, seek emergency medical care immediately: Trouble breathing Persistent pain or pressure in the chest New confusion Inability to wake or stay awake Bluish lips or face *This list is not all possible symptoms. Please call your medical provider for any other symptoms that are severe or concerning to you. documented [facility] History of Present illness Narrative* Aryan Jain APRN.CNP - 06/18/2022 4:47 PM EST Subjective HPI Nontoxic-appearing male presents urgent care chief complaint sinus pressure fatigue sore throat. Duration of symptoms 8 days. Associated symptoms sinus pressure fatigue sore throat. States had similar signs symptoms. Her symptoms are progressively improving. Presents today for evaluation of COVID-19 and influenza. Possible sinus infection. States sinus pressure has worsened over the last 24 hours. Has used OTC medications. This is helped some. Denies any fever body aches chills productive cough chest pain shortness of breath pleuritic pain hemoptysis nausea vomiting abdominal pain changein bowel or bladder habits. Past medical history prescription medication use and allergies reviewed. .Patient presents with: Headache: Nasal congestion, fatigue, throat pain, x1 wk. History reviewed. No pertinent past medical history. History reviewed. No pertinent surgical history. ALLERGIES Adhesive Tape (Rosins), Bacitracin, Dipyridamole, Polymyxin B, and Trifluoperazine MEDICATIONS amLODIPine (NORVASC) 5 mg tablet 5 mg. aspirin, enteric coated (ASPIRIN, ENTERIC COATED) 81 mg EC tablet 81 mg. atorvastatin (LIPITOR) 40 mg tablet 20 mg. carboxymethylcellulose (REFRESH) 0.5 % drop INSTILL 1 DROP IN EACH EYE THREE TIMES A DAY FOR DRY AND/OR IRRITATED EYE(S) cholecalciferol (VITAMIN D3) 50 mcg (2,000 unit) tablet Take 2 tablets by mouth once daily. cyanocobalamin (VITAMIN B-12) 1,000 mcg tab Take 1 tablet by mouth once daily. desonide (TRIDESILON) 0.05 % cream APPLY A SUFFICIENT AMOUNT EXTERNALLY TWICE A DAY TO FOREHEAD RASH FOR UP TO 2 WEEKS IF FLARING ferrous sulfate 325 mg (65 mg iron) tablet 325 mg. fluticasone (FLONASE) 50 mcg/actuation nasal spray Use 2 Sprays in each nostril once daily. ketoconazole (NIZORAL) 2 % cream APPLY A SUFFICIENT AMOUNT EXTERNALLY TWICE A DAY DIRECTED ketoconazole (NIZORAL) 2 % shampoo SHAMPOO A SUFFICIENT AMOUNT EXTERNALLY EVERY DAY DIRECTED levothyroxine (SYNTHROID) 112 mcg tablet 0.112 mg. lisinopril (ZESTRIL,PRINIVIL) 30 mg tablet Take 1 tablet by mouth once daily. nitroglycerin sublingual (NITROQUICK) 0.4 mg SL tablet 0.4 mg. pyridoxine, vitamin B6, (VITAMIN B6) 50 mg tablet Take 1 tablet by mouth every morning. ranolazine SR (RANEXA) 1,000 mg tab ER 12 hr Take 1 tablet by mouth q 12 HR. sertraline (ZOLOFT) 50 mg tablet Take 1 tablet by mouth once daily. ticagrelor (BRILINTA) 90 mg tablet Take 1 tablet by mouth twice daily. History reviewed. No pertinent family history. Social History Tobacco Use Smoking status: Former Types: Cigarettes Quit date: 1984 Years since quittin.0 Smokeless tobacco: Never Substance Use Topics Alcohol use: Never Drug use: Never BP 136/72 Pulse 70 Temp 36.7 C (98.1 F) (Tympanic) Resp 18 Wt 99.2 kg (218 lb 12.8 oz) SpO2 97% Review of Systems Constitutional: Negative for chills, fever and malaise/fatigue. HENT: Positive for congestion, sinus pain and sore throat. Negative for ear discharge and ear pain. Eyes: Negative for blurred vision, pain, discharge and redness. Respiratory: Negative for cough, hemoptysis, sputum production, shortness of breath, wheezing and stridor. Cardiovascular: Negative for chest pain. Gastrointestinal: Negative for abdominal pain, diarrhea, nausea and vomiting. Musculoskeletal: Positive for myalgias. Skin: Negative for itching and rash. Neurological: Negative for dizziness and headaches. Objective Physical Exam Constitutional: General: He is not in acute distress. Appearance: He is not diaphoretic. HENT: Head: Normocephalic. Jaw: No trismus, tenderness, swelling or pain on movement. Right Ear: Tympanic membrane, ear canal and external ear normal. Left Ear: Tympanic membrane, ear canal and external ear normal. Nose: Right Sinus: No maxillary sinus tenderness or frontal sinus tenderness. Left Sinus: Maxillary sinus tenderness and frontal sinus tenderness present. Mouth/Throat: Lips: [place]. Mouth: Mucous membranes are moist. Pharynx: Oropharynx is clear. Uvula midline. No pharyngeal swelling, oropharyngeal exudate, posterior oropharyngeal erythema or uvula swelling. Eyes: Conjunctiva/sclera: Conjunctivae normal. Pupils: Pupils are equal, round, and reactive to light. Cardiovascular: Rate and Rhythm: Normal rate and regular rhythm. Heart sounds: Normal heart sounds. Pulmonary: Effort: Pulmonary effort is normal. No tachypnea, accessory muscle usage or respiratory distress. Breath sounds: Normal breath sounds. No stridor. No wheezing, rhonchi or rales. Abdominal: General: There is no distension. Palpations: Abdomen is soft. Tenderness: There is no abdominal tenderness. There is no guarding or rebound. Musculoskeletal: Cervical back: Normal range of motion and neck supple. No rigidity or tenderness. Lymphadenopathy: Cervical: No cervical adenopathy. Skin: General: Skin is warm and dry. Neurological: Mental Status: He is alert and oriented to person, place, and time. ASSESSMENT/PLAN: 1. Acute maxillary sinusitis, recurrence not specified - ICD9: 461.0, ICD10: J01.00 Patient diagnosed maxillary sinusitis. Will test for COVID-19 and influenza. Placed on doxycycline. Patient was educated on supportive therapies. Patient will follow up with primary care provider as needed. Patient was instructed to immediately proceed to emergency room for any new, worsening, or symptoms lasting longer than anticipated. The patient's clinical presentation is otherwise unremarkable at this time. Based on exam and clinical finding, the patient is stable for discharge. Plan of care was discussed with patient. Patient verbalizes understanding and agrees to plan of care. This note was generated using [employer] software. It may contain errors in wording, punctuation, or spelling. Aryan Jain APRN.CNP documented in this encounterWvumed[facility] HospitalEvaluation + Plan note Future Appointments Appointment Date:09/07/2022 02:00:00 PM Scheduled Provider:NORBERTO SOSA DO Location:[facility] Appointment Type:PC OV Appointment Date:11/09/2022 02:00:00 PM Scheduled Provider:NORBERTO SOSA DO Location:[facility] Appointment Type:PC Wellness Medicare Appointment Date:12/28/2022 02:00:00 PM Scheduled Provider:JODY VELEZ [facility] Appointment Type:CV OV Future Scheduled Tests Laboratory* LDL-Cholesterol, Direct 07/14/22 * Basic Metabolic Panel 07/14/22 * Thyroid Stimulating Hormone 07/14/22 * Thyroxine 07/14/22 * Lipid Profile 07/14/22 [facility] Evaluation + Plan note Future Appointments Appointment Date:07/19/2023 02:30:00 PM Scheduled Provider:JODY VELEZ [facility] Appointment Type:CV OV Appointment Date:10/08/2023 02:30:00 PM Scheduled Provider:NORBERTO SOSA DO Location:[facility] Appointment Type:PC OV Future Scheduled Tests Laboratory* Basic Metabolic Panel 04/09/23 * Vitamin B12 Level 04/09/23 * Albumin/Creatinine Ratio, Random Urine 04/09/23 * Vitamin D Level 04/09/23 [facility] Evaluation + Plan note Future Appointments Appointment Date:10/08/2023 02:30:00 PM Scheduled Provider:NORBERTO SOSA DO Location:[facility] Appointment Type:PC OV Appointment Date:02/02/2024 02:00:00 PM Scheduled Provider:JODY VELEZ [facility] Appointment Type:CV OV Future Scheduled Tests Laboratory* Basic Metabolic Panel 04/09/23 * Vitamin B12 Level 04/09/23 * Albumin/Creatinine Ratio, Random Urine 04/09/23 * Vitamin D Level 04/09/23 [facility] Evaluation + Plan note Future Appointments Appointment Date:04/28/2024 02:30:00 PM Scheduled Provider: Location:[facility] Appointment Type:BD Bone Density DEXA Axial Skeleton Appointment Date:07/17/2024 02:30:00 PM Scheduled Provider:NORBERTO SOSA DO Location:[facility] Appointment Type:[facility] Medicare Appointment Date:08/16/2024 01:30:00 PM Scheduled Provider:JODY VELEZ Location:[facility] Appointment Type:CV OV Future Scheduled Tests Radiology* BD Bone Density DEXA Axial Skeleton Adult (21 yrs or older) 04/28/24 [facility] Evaluation + Plan note Future Appointments Appointment Date:07/17/2024 02:30:00 PM Scheduled Provider:NORBERTO SOSA DO Location:[facility] Appointment Type:PC Wellness Medicare Appointment Date:08/16/2024 01:30:00 PM Scheduled Provider:JODY VELEZ Location:[facility] Appointment Type:CV OV Future Scheduled Tests Laboratory* Basic Metabolic Panel 04/28/24 [facility] Evaluation + Plan note Future Appointments Appointment Date:07/17/2024 02:30:00 PM Scheduled Provider:NORBERTO SOSA DO Location:[facility] Appointment Type:PC Wellness Medicare Appointment Date:08/16/2024 01:30:00 PM Scheduled Provider:JODY VELEZ Location:[facility] Appointment Type:CV OV [facility] evaluation + Plan note Future Appointments Appointment Date:08/16/2024 01:30:00 PM Scheduled Provider:JODY VELEZ Location:[facility] Appointment Type:CV OV Appointment Date:08/18/2024 02:15:00 PM Scheduled Provider:NORBERTO SOSA DO Location:[facility] Appointment Type:PC OV Future Scheduled Tests Laboratory* Lipoprotein (a) 07/17/24 * Apolipoprotein B 07/17/24 * TSH with Reflex to FT4 07/17/24 * Complete Blood Count 07/17/24 * Complement C3A/C4A - Panel 07/17/24 * Lipid Profile 07/17/24 * Albumin/Creatinine Ratio, Random Urine 07/17/24 * Protein Electrophoresis Panel 07/17/24 * Complete Metabolic Panel 07/17/24 * Ratio Prot/Creat Urine 07/17/24 [facility] Evaluation + Plan note Future Appointments Appointment Date:08/16/2024 01:30:00 PM Scheduled Provider:JODY VELEZ [facility] Appointment Type:CV OV Appointment Date:08/18/2024 02:15:00 PM Scheduled Provider:NORBERTO SOSA DO Location:[facility] Appointment Type:PC OV Diagnostic Tests Pending * Lipoprotein (a) 08/10/24 * Apolipoprotein B 08/10/24 [facility] Evaluation + Plan note Future Appointments Appointment Date:12/15/2024 10:45:00 AM Scheduled Provider:NORBERTO SOSA DO Location:[facility] Appointment Type:PC OV Appointment Date:03/05/2025 02:30:00 PM Scheduled Provider:JODY VELEZ [facility] Appointment Type:CV OV Diagnostic Tests Pending * Apolipoprotein B 12/08/24 [facility] Evaluation + Plan note Future Appointments Appointment Date:03/05/2025 02:30:00 PM Scheduled Provider:JODY VELEZ [facility] Appointment Type:CV OV Appointment Date:04/16/2025 10:45:00 AM Scheduled Provider:NORBERTO SOSA DO Location:[facility] Appointment Type:PC OV Future Scheduled Tests Laboratory* Basic Metabolic Panel 12/15/24 * A1C Hemoglobin 12/15/24 [facility] Evaluation note* Diagnosis Acute maxillary sinusitis, recurrence not specified- Primary Suspected COVID-19 virus infection documented in this encounter [facility]* Diagnosis Burning with urination- Primary Dysuria documented in this encounter [facility] noteNo assessment information availableWKettering Health [facility] Work Phone: Hospital course Narrative No data available for this section [facility] Hospital Discharge instructions No data available for this section [facility] Note* MARYLOU PATEL MD: SIGN, VERIFY Event Display: Echocardiogram Complete w/Strain (AOH) Authored Date: [id number] [facility] Progress note No data available for this section [facility] Reason for referral (narrative)No reason for referral information availableWKettering Health [facility] Work Phone: Summary Purpose Family History No Family History Records FoundNo Family History Records Found No data available for this section No data available for this section No Family History Records Found No data available for this section No data available for this section No data available for this section No data available for this section No data available for this section No data available for this section No data available for this section No Family History Records FoundNo Family History Records Found Advance Directives No Advanced Directives Records FoundNo Advanced Directives Records FoundNo Advanced Directives Records FoundNo Advanced Directives Records FoundNo Advanced Directives Records Found Health Concerns Infection Onset Date Last Indicated Resolved Time COVID-19 Rule-Out 06/18/2022 06/18/2022 06/19/2022 7:35 AM EST Chief Complaint and Reason for Visit Chief Complaint Admit Date LABS January 11, 2025 11:2 1am Chief Complaint Admit Date LABS January 11, 2025 11:2 1am RT SHOULDER ARTHRITIS February 28 12:49pm Additional Source Comments (unrecognized sect ion and content) No Status Records FoundNo Status Records FoundNo Status Records FoundNo Status Records FoundNo Status Records Found INFORMATION SOURCE (unrecogn ized section and content) DATE CREATED AUTHOR 09/02/2018 [facility] kristel Warren DATE CREATED AUTHOR AUTHOR'S ORGANIZ ATION 07/26/2022 [facility] DATE CREATED AUTHOR AUTHOR'S ORGANIZ ATION 08/03/2023 [facility] ([place]) DATE CREATED AUTHOR AUTHOR'S ORGANIZ ATION 12/28/2024 [facility] DATE CREATED AUTHOR AUTHOR'S ORGANIZ ATION 03/31/2025 [facility] Source Comments (unrecognize d section and content) In the event this informatio n is protected by the Federal Confidentiality of Alcohol and Drug Abuse Patient Records regulations: The Federal rules restrict any use of the information to criminally investigate or prosecute any alcohol or drug abuse patient.[facility] HospitalIn the event this information is protected by the Federal Confidentiality of Alcohol and Drug Abuse Patient Records regulations: The Federal rules restrict any use of the information to criminally investigate or prosecute any alcohol or drug abuse patient.[facility] HospitalIn the event this information is protected by the Federal Confidentiality of Alcohol and Drug Abuse Patient Records regulations: The Federal rules restrict any use of the information to criminally investigate or prosecute any alcohol or drug abuse patient.[facility] HospitalIn the event this information is protected by the Federal Confidentiality of Alcohol and Drug Abuse Patient Records regulations: The Federal rules restrict any use of the information to criminally investigate or prosecute any alcohol or drug abuse patient.[facility] Reason for Visit (unrecogniz ed section and content) Reason Comments Headache Nasal congestion, fa tigue, throat pain, x1 wk. Reason Comments Results Reason Comments UTI Hematuria, burning w ith urination x today Care Team (unrecognized sect ion and content) Care Team Personnel Name: Elsa Computing Machine Operator Suad PT Position: P3 Scheduling - Cavity Pump Operator Advanced Member Role: Other Name: NORBERTO SOSA DO Position: P4 Physician - Primary Care Member Role: Primary Care Physician Address: Address: [address] [place] [id number]- Care Team Related Persons Name: FARA CERON Address: [address] [place] [id number] Patient Care team informatio n (unrecognized section and content) Team Status: Active Member Role/Relationship Status Dates Dr. Norberto Sosa DO Primary Care Provider Active Team Status: Inactive Member Role/Relationship Status Dates Dr. Norberto Sosa DO Primary Care Provider Active Start: January 11, 2025 End: January 11, 2025 Dr. Aryan Palacios DO Attending Provider Active Start: January 11, 2025 End: January 11, 2025 Dr. Aryan Palacios DO Referring Provider Active Start: January 11, 2025 End: January 11, 2025 Team Status: Active Member Role/Relationship Status Dates Dr. Norberto Sosa DO Primary care physician Active Team Status: Inactive Member Role/Relationship Status Dates Dr. Norberto Sosa DO Primary care physician Active Start: January 11, 2025 End: January 11, 2025 Dr. Aryan Palacios DO Attending physician Active Start: January 11, 2025 End: January 11, 2025 Dr. Aryan Palacios DO Referring Provider Active Start: January 11, 2025 End: January 11, 2025 Team Status: Inactive Member Role/Relationship Status Dates Dr. Norberto Sosa DO Primary care physician Active Start: February 28, 2025 End: February 28, 2025 Dr. Aryan Palacios DO Attending physician Active Start: February 28, 2025 End: February 28, 2025 Dr. Aryan Palacios DO Referring Provider Active Start: February 28, 2025 End: February 28, 2025 Goals (unrecognized section and content) Goals may be documented in a n alternate section FOR RECORDS PERTAINING TO PATIENTS WHO ARE OR HAVE BEEN ENROLLED IN A CHEMICAL DEPENDENCY/SUBSTANCEABUSE PROGRAM, SOME INFORMATION MAY BE OMITTED. This clinical summary was aggregated from multiple sources. Caution should be exercised in using it in the provision of clinical care. This summary normalizes information from multiple sources, and as a consequence, information in this document may materially change the coding, format and clinical context of patient data. In addition, data may be omitted in some cases. CLINICAL DECISIONS SHOULD BE BASED ON THE PRIMARY CLINICAL RECORDS. [employer] [facility]. provides no warranty or guarantee of the accuracy or completeness of information in this document.
[2025-04-05 12:21] LABS: AST(SGOT) 30 U/L (<=37); Alanine Aminotransfer ALT/SGPT 29 U/L (<=46); Albumin, Serum 4.2 g/dL (3.4-4.8); Alkaline Phosphatase 49 U/L (40-129); Anion Gap 12 (5-15); BUN 21 mg/dL (4-19); BUN/Creat Ratio 16.0 RATIO (10-20); Calcium,Total 9.1 mg/dL (7.6-11.0); Carbon Dioxide 25.3 mmol/L (21.0-32.0); Chloride 103 mmol/L (98-108); Globulin 2.6 g/dL (2.2-4.2); Glucose 113 mg/dL (70-99); Potassium 4.2 mmol/L (3.3-5.1)
== END | disposition home or self-care (01) ==
LOC: RAD 10:55
PROVIDERS: Referring Provider Chiropractor; Visit Provider Chiropractor
DX: E11.9 Type 2 diabetes mellitus without complications (principal); J44.9 Chronic obstructive pulmonary disease, unspecified
CPT/HCPCS: 36415; 71046; 80053; 81002